=== PATIENT | male | born 1965 | race American Indian/Alaskan Native ===

== ENCOUNTER 2025-03-02 10:46 | Inpatient (IN) | payer MEDICAID, SELFPAY ==
[2025-03-02] VITALS (23 sets, daily range): BP systolic 132–167; BP diastolic 84–111; PULSE 98–132; RESP 24–88; TEMP 36.8–39.2; O2SAT 88–98; BMI 25.9
--- NOTE | 2025-03-02 11:17 | PD.EDSOB ---
ED SOB =RME/HPI General Chief Complaint: Shortness of Breath/Dyspnea Stated Complaint: SOB Time Seen by Provider: 03/02/25 11:04 Arrival date/time: 03/02/25 10:46 RME / HPI RME / HPI Narrative: 59 year old male with history of HIV presents to the ED BIBA from home for shortness of breath and difficulty breathing today. Per medics report, on scene patient noted to be in respiratory distress and saturating 88% on room air. Reported on their lung auscultation there were rhonchi throughout all lung kruse. Was given 3 Albuterol breathing treatments en route with some improvement. On arrival to ED patient was saturating 98% on 3L nasal cannula. The patient additionally reports a productive cough with yellow blood tinged sputum beginning 2 days ago. No recent travels or known sick contacts. Related Data Allergies Allergy/AdvReac Type Severity Reaction Status Date / Time No Known Allergies Allergy Verified 03/02/25 11:21 Review of Systems Review of Systems Narrative Review of Systems: Constitutional: DENIES; Fevers Eyes: DENIES; Loss of vision Head/Ear/Nose: DENIES; Loss of hearing Throat: DENIES; Dysphagia Cardiovascular: DENIES; Chest pain, dyspnea or syncope Respiratory: SEE HPI Gastrointestinal: DENIES; Rectal bleeding or melena. Genitourinary: DENIES; Dysuria (painful or difficult urination) Musculoskeletal: DENIES; Arthralgia (pain in a joint),; Skin: DENIES; Rash Neurological: DENIES; Loss of function or movement Psychiatric: DENIES; recent major life stressor, emotional problem, illicit drug use or abuse Endocrinology: DENIES; Weight change Hematologic/Lymphatic: DENIES; Abnormal bruising Allergic/Immunologic: DENIES; Urticaria (hives) Past Medical History Past Medical History CARDIAC: Negative Congestive Heart Failure RESPIRATORY: Negative Chronic Obstructive Pulmonary Disease (COPD) GENITOURINARY: Negative Renal Disease MUSCULOSKELETAL: Positive Musculoskeletal Disorders (hands) ENDOCRINE: Negative Diabetes Mellitus Type 1 or Diabetes Mellitus Type 2 HEMATOLOGIC: Positive Blood Disorders (hiv/aids) Social History SMOKING STATUS: Former smoker ED Exam Narrative Physical exam: Physical Exam: General: The vital signs were reviewed. Patient feels warm he is tachycardic his blood pressure is adequate appears ill the patient is appears ill and is breathing tachypneic without stridor. Head & Scalp: Normocephalic, atraumatic. Face: Appears normal and is without lesions, deformity. Ears: Left external pinna appears normal. Right external pinna appears normal. Eyes: The sclera is anicteric. No obvious photophobia. The Left and Right Orbit/Lid/Conjunctiva appears normal without swelling, discoloration or injection. Nose: The nose is without deformity, discharge or tenderness; Throat: Appears normal. The mucous membranes are pink and moist without exudates, redness or mass seen. The tongue appears normal. Neck: The neck is supple and no apparent mass or adenopathy. Chest: The chest wall is normal in size and symmetry and has no chest wall tenderness or crepitus. The patient displays increased ventilatory effort with decreased breath sounds in the right lower lung field. Some scant wheezes are heard without any obvious rales. . Cardiovascular: Tachycardia at 140 sinus on the monitor with regular rate ; No murmurs, rubs, or gallops; Gastrointestinal: The abdomen appears normal. No obvious hernias or mass. The abdomen is soft and benign, non-distended, with no pain, no guarding and no rebound tenderness. Bowel sounds are present and normal sounding. No CVA tenderness. Genitourinary: Back/Spine: Normal inspection Extremities/Musculoskeletal/lymphatic: The bilateral upper and lower extremities are warm. There is no evidence of arterial insufficiency. There is no evidence of venous insufficiency/edema. The patient spontaneously moves bilateral upper and lower extremities with no pain and no limitation of movement. There is no apparent, injury or trauma. Skin: The skin is warm, dry and intact. No rashes. No petechia. No purpura. No abnormal bruising. The color is appropriate with no cyanosis. Mental status/Psychiatric: Mental status is appropriate for age. The patient has no apparent delusions, visual hallucinations, no apparent audible hallucinations. The patient has no apparent suicidal thoughts/ideation and no apparent homicidal thoughts/ideation. Neurological: The patient is awake, alert, interactive, cordial, cooperative and is oriented to name and situation. The patient follows commands and answers historical question with no impairment. There is no visual disturbance apparent. The pupils are equal and reactive bilaterally with normal eye movements and no diplopia The bilateral upper and lower extremities have normal strength, normal range of motion and normal functioning. The gait, station and balance were not tested due to acuity Course Quality Measures Current suspected stage: sepsis Possible source: pulmonary Blood cultures ordered: completed in ED Antibiotic ordered: Yes Pertinent labs: 03/02/25 03/02/25 03/02/25 11:30 11:51 14:43 Lactic Acid 2.4 H mMol/L 1.1 mMol/L (0.4-2.0) (0.4-2.0) Procalcitonin 2.39 H ng/ml (0.0-0.49) sepsis Orders Category Date Time Status Admit to Inpatient Status Routine Admission 03/02/25 14:54 Active Patient Condition Routine Admission 03/02/25 14:53 Ordered Bedrest NOW Care 03/02/25 14:54 Active Bedside Blood Glucose NOW Care 03/02/25 11:18 Completed Bedside COVID-19 Antigen Test NOW Care 03/02/25 11:39 Active Bedside Influenza A&B Antigen Test NOW Care 03/02/25 11:41 Completed EKG (ED ONLY) *Do not use* NOW Care 03/02/25 11:18 Completed Intake and Output QSHIFT Care 03/02/25 15:00 Ordered NPO NOW Care 03/02/25 14:54 Active Notify provider NEEDED Care 03/02/25 14:53 Active Diet NPO (NOW) Diet 03/02/25 14:54 Active EKG (ED Only) Stat Exams 03/02/25 11:18 Draft XR chest 1V portable Stat Exams 03/02/25 11:18 Completed Alcohol, Blood Medical Stat Lab 03/02/25 11:51 Completed Ammonia Stat Lab 03/02/25 11:51 Completed B-Type Natriuretic Peptide Stat Lab 03/02/25 11:51 Completed Blood Culture (Lab) Stat Lab 03/02/25 11:33 Received CBC AM DRAW Lab 03/03/25 05:00 Ordered CBC AM DRAW Lab 03/04/25 05:00 Ordered CBC AM DRAW Lab 03/05/25 05:00 Ordered CBC Stat Lab 03/02/25 11:30 Completed Comprehensive Metabolic Panel AM DRAW Lab 03/03/25 05:00 Ordered Comprehensive Metabolic Panel AM DRAW Lab 03/04/25 05:00 Ordered Comprehensive Metabolic Panel AM DRAW Lab 03/05/25 05:00 Ordered Comprehensive Metabolic Panel Stat Lab 03/02/25 11:51 Completed Drug Screen,Urine Stat Lab 03/02/25 11:30 Completed Lactate (Lactic Acid) Stat Lab 03/02/25 11:30 Completed Lactic Acid, 3 HR Stat Lab 03/02/25 14:43 Completed Lipid Panel AM DRAW Lab 03/03/25 05:00 Ordered Magnesium AM DRAW Lab 03/03/25 05:00 Ordered Magnesium AM DRAW Lab 03/04/25 05:00 Ordered Magnesium AM DRAW Lab 03/05/25 05:00 Ordered Misc Send Out* Stat Lab 03/02/25 15:42 Received Procalcitonin Stat Lab 03/02/25 11:51 Completed Prothrombin Time with INR Stat Lab 03/02/25 11:51 Completed Troponin I Stat Lab 03/02/25 11:51 Completed Type and Screen Stat Lab 03/02/25 11:38 Completed Urinalysis Stat Lab 03/02/25 11:30 Completed Urinalysis, C/S if Indicated Stat Lab 03/02/25 11:30 Completed Venous Blood Gas Stat Lab 03/02/25 11:30 Completed ALBUTEROL RT 0.5ml [Proventil Rt 0.5ml] Med 03/02/25 14:11 Discontinued 10 mg INH X1 ONE Acetaminophen Tab [Tylenol Tab] Med 03/02/25 14:53 Active 650 mg PO Q6H PRN Heparin Inj Med 03/02/25 22:00 Active 5,000 unit SC Q8HR MethylPREDNISolone.* [SoluMEDROL Inj] Med 03/02/25 14:11 Discontinued 125 mg IVP X1 ONE Ondansetron Inj [Zofran Inj] Med 03/02/25 14:53 Active 4 mg IV Q6H PRN Pantoprazole Inj [Protonix Inj] Med 03/02/25 15:00 Active 40 mg IVP QDAY Piper/Tazo 3.375 gm Premix [Zosyn] Med 03/02/25 11:18 Discontinued 3.375 gm in 50 ml IV X1 Sodium Chloride 0.9% 1000 ml [Ns] 1,000 ml Med 03/02/25 12:04 Discontinued IV 999 mls/hr Sodium Chloride 0.9% 1000 ml [Ns] 2,000 ml Med 03/02/25 11:18 Active IV 150 mls/hr Sodium Chloride Rt [place] 0.9% [NS Rt [place] 0.9%] Med 03/02/25 14:11 Active 3 ml INH PRN PRN Vancomycin/Ns 1 gm Ivpb 200 ml Med 03/02/25 11:18 Discontinued IV X1 Code Status Routine Oth 03/02/25 14:53 Ordered Oxygen Delivery PRN RT 03/02/25 14:53 Active Vital Signs Vital signs: Vital Signs Temperature 98.2 F 03/02/25 10:58 Pulse Rate 128 H 03/02/25 10:58 Respiratory Rate 32 H 03/02/25 10:58 Blood Pressure 147/102 H 03/02/25 10:58 Pulse Oximetry (%) 88 L 03/02/25 10:58 Oxygen Delivery Method Room Air 03/02/25 10:58 Shortness of Breath / Dyspnea MDM Narrative MDM Narrative:: Patient is a 59-year-old with known HIV disease comes in breathing a little fast short of breath tachycardic and found to have a rectal temperature of 102. Because of the fever and tachycardia we gave him a liter of fluid because he looked ill he is immunocompromise but given Vanco and Zosyn upfront after the fluid bolus he looks basically same he still breathing little fast his heart rates in the 120s. Chest x-ray read by myself which shows a right lower lobe infiltrates consistent with a right lower lobe pneumonia. Urine drug screen came back negative alcohol level was negative Urinalysis came back negative. Procalcitonin is elevated 2.39 ammonia came back negative troponin was negative BNP was negative. AST ALT within normal limits folate was normal. Lactic acid came back at 2.4 slightly elevated. Glucose 135 BUN 16 creatinine 1.0 sodium 127 little low potassium 4.3 chloride 93 venous blood gas pH is 7.46 pCO2 of 41 PT/INR is 11.2 and 1.0 white count was 13.8 with hemoglobin of 15.8 hematocrit 43.3 platelet count 130. Patient was treated for possible sepsis early with antibiotics and being immunocompromise. Clinically he is quite ill but probably not sick enough to be in the ICU at this time. I contacted our critical care doc and they state they cannot take a look at this patient and I called hospitalist as I think they will be admitting to the floor with telemetry at this time. Obviously he is at high risk for progressing getting worse. Noted reevaluate this patient multiple times Hospitalist team came down evaluate this patient then discussed this with their attending and they decided to keep him in the ICU is high risk of declining due to his immunocompromise state. And the fact he has a significant pneumonia. Noted a second blood gas was obtained the pH is still well-maintained at 739 pCO2 of 51 with minimal retention. Patient data External records reviewed:: [facility] previous records (I reviewed ED visit on 06/10/2023) and EMS form Clinical information provided by:: patient and EMS Social determinants that could affect healthcare access:: none Patient has the following chronic illnesses:: HIV How is presenting disease/condition affected by chronic disease/condition?: exacerbated by Evaluation data The following diagnostics were reviewed and interpreted by me:: lab results, radiology exam(s) and EKG tracing(s) (EKG @ 12:26 PM. Sinus tachycardia, rate 116, no STEMI. ) Lab and/or radiology exams considered but not ordered:: None Interpretation Summary: Ordering Physician: Mike Manning MD Date of Service: 03/02/25 Procedure(s): XR chest 1V portable Accession Number(s): [id number] cc: Mike Manning MD; Sourav Laguna MD~ Examination: AP chest single view Technique one AP upright portable chest single view Exam date and time: March 02, 2025 1203 hours INDICATIONS: Chest pain beginning 2 days ago. FINDINGS: Bilateral pneumonia, extensive right lung Mild prominence left ventricle Prominent osteopenia IMPRESSION: Bilateral pneumonia, extensive right lung Dictated By: Sourav Laguna MD Signed By: <Electronically signed by Sourav Laguna MD in OV> 03/02/25 1211 Medications / Prescriptions Medications or Prescriptions considered but not ordered:: None Medication administrations:: Medication Administration History Acetaminophen (Acetaminophen 325 Mg Tablet) 650 mg PO Q6H PRN PRN Reason: pain and Fever >100.4 Stop: 04/01/25 14:52 Last Admin: 03/02/25 16:38 Dose: 650 mg Documented By: CHIKIS Heparin Sodium (Porcine) (Heparin Sod Inj 5000 Unit/Ml Vial) 5,000 unit SC Q8HR ELEANOR Stop: 03/16/25 21:59 Sodium Chloride (Ns) 2,000 mls @ 150 mls/hr IV .[id number] ONE Stop: 03/03/25 00:37 Last Infusion: 03/02/25 16:22 Dose: 999 mls/hr Documented By: Admin: 03/02/25 11:58 Dose: 150 mls/hr Documented By: CHIKIS Azithromycin 500 mg/ Sodium (Chloride) 250 mls @ 250 mls/hr IV Q24H ELEANOR Stop: 03/09/25 15:59 Last Admin: 03/02/25 16:49 Dose: 250 mls/hr Documented By: CHIIKS Ceftriaxone Sodium/Dextrose (Rocephin/D5w 1gm Iv Premix) 1,000 mg in 50 mls @ 100 mls/hr IV Q24H ELEANOR Stop: 03/09/25 14:59 Last Admin: 03/02/25 16:30 Dose: 100 mls/hr Documented By: CHIKIS Labetalol HCl (Labetalol Inj 5 Mg/Ml Vial 20 Ml) 5 mg IVP Q6HR PRN PRN Reason: SBP >170 and hold if HR<70 Stop: 04/01/25 15:41 Ondansetron HCl (Ondansetron Inj 2 Mg/Ml Inj 2 Ml) 4 mg IV Q6H PRN; Protocol PRN Reason: NAUSEA OR VOMITING Stop: 04/01/25 14:52 Oseltamivir Phosphate (Oseltamivir 6 Mg/Ml) 75 mg 1 mg/kg (75 mg) PO BID ELEANOR Stop: 03/09/25 20:59 Pantoprazole Sodium (Pantoprazole Inj 40 Mg Vial) 40 mg IVP QDAY ELEANOR Stop: 04/01/25 14:59 Last Admin: 03/02/25 16:31 Dose: 40 mg Documented By: CHIKIS Sodium Chloride (Sodium Chloride Rt [place] 0.9% 3 Ml Nebu) 3 ml INH PRN PRN PRN Reason: SOLN Stop: 04/01/25 14:10 Last Admin: 03/02/25 14:32 Dose: 3 ml Documented By: DOMINGUEZ Discontinued Medications Albuterol (Albuterol Rt 2.5 Mg/0.5 Ml Nebu) 10 mg INH X1 ONE Stop: 03/02/25 14:12 Last Admin: 03/02/25 14:31 Dose: 10 mg Documented By: DOMINGUEZ Vancomycin/Sodium Chloride (Vancomycin/Ns 1 Gm Ivpb) 200 mls @ 120 mls/hr IV X1 ONE Stop: 03/02/25 12:57 Last Infusion: 03/02/25 16:01 Dose: Infused Documented By: Admin: 03/02/25 12:40 Dose: 120 mls/hr Documented By: CHIKIS Piperacillin/Tazobactam/Dextrose (Zosyn) 3.375 gm in 50 mls @ 100 mls/hr IV X1 ONE Stop: 03/02/25 11:47 Last Infusion: 03/02/25 13:08 Dose: Infused Documented By: Admin: 03/02/25 11:58 Dose: 100 mls/hr Documented By: CHIKIS Sodium Chloride (Ns) 1,000 mls @ 999 mls/hr IV .Q1H1M ONE Stop: 03/02/25 13:04 Last Infusion: 03/02/25 16:02 Dose: Infused Documented By: Admin: 03/02/25 12:08 Dose: 999 mls/hr Documented By: CHIKIS Lactated Ringer's (Lactated Ringers) 1,000 mls @ 999 mls/hr IV .Q1H1M ONE Stop: 03/02/25 16:09 Last Admin: 03/02/25 16:24 Dose: Not Given Documented By: CHIKIS Non-Admin Reason: Cancelled by Provider Methylprednisolone Sodium Succinate (Methylprednisolone Sod Succ 62.5 Mg/Ml 2ml Vial) 125 mg IVP X1 ONE Stop: 03/02/25 14:12 Last Admin: 03/02/25 15:03 Dose: 125 mg Documented By: MARIAH See above Consultations Consultation(s) initiated? (list below): Yes Consultation #1 (Physician, Specialty, Details): I spoke with [facility] extension specialist Dr. Terry. Discussed patients PMHx, HPI, ED course, exam findings, labs, and radiology results. He agrees to consult. Patient will be admitted to hospitalist team. Time: 14:02 Consultation #2 (Physician, Specialty, Details): I spoke with resident Dr. Renteria regarding admission. Discussed patients PMHx, HPI, ED course, exam findings, labs, and radiology results. Will come evaluate the patient in the ED. Time: 14:04 Consultation #3 (Physician, Specialty, Details): ICU resident report they will be admitting the patient to the unit. Time: 14:50 Diagnosis Shortness of Breath Differential Diagnosis: acute exacerbation of chronic obstructive airways disease, congestive heart failure and community acquired pneumonia Most likely diagnosis given after review of the tests above:: Pneumonia Immunocompromised HIV disease Hypoxemia SIRS Influenza A Admission Indicated Admission indicated?: indicated Admission Request Was there a request for admission?: Yes Admission Attestation Admission request attestation: Discussed case with [] from Hospitalist service regarding admission. Discussed patients ED course, exam findings, labs, and radiology results. The Hospitalist [agrees,declines] to accept the patient for admission. Disposition Plan Disposition Plan: Admit Critical Care Time Critical Care Time Critical Care Time: Yes Total Critical Care Time (min.): 45 Attestation: The high probability of sudden, clinically significant deterioration in the patient's condition required the highest level of my preparedness to intervene urgently. The services I provided to this patient were to treat and/or prevent clinically significant deterioration. Services included the following: chart data review, reviewing nursing notes and/or old charts, documentation time, search consultant collaboration regarding findings and treatment options, medication orders and management, direct patient care, vital sign assessments and ordering, interpreting and reviewing diagnostic studies and lab tests. Aggregate critical care time includes only time during which I was engaged in work directly related to the patient's care, as described above, whether at bedside or elsewhere in the Emergency Department. It did not include time spent performing other reported procedures or the services of residents, students, nurses or physician assistants. Discharge Plan Plan Patient Disposition: Admit Acute Care w/in Hospital Disposition Comment: Hospitalist admit ICU to consult Problem List Clinical Impression: Pneumonia, Immunocompromised, HIV disease, Hypoxemia, SIRS (systemic inflammatory response syndrome), Influenza A
--- NOTE | 2025-03-02 11:18 | EKG_ITS ---
[facility] Test Date: 2025-03-02 Pat Name: TORIN DAVID Department: Room: - Gender: Male Credit Charge Authorizer: : 1965 Requested By: Mike Manning Order Number: [id number] Reading MD: Mike Manning Measurements Intervals [place] Rate: 116 P: 49 IN: 194 QRS: -12 QRSD: 108 T: 28 QT: 314 QTc: 437 Interpretive Statements SINUS TACHYCARDIA POSSIBLE RIGHT ATRIAL ENLARGEMENT [0.25mV P-WAVE] LOW QRS VOLTAGE IN PRECORDIAL LEADS [QRS DEFLECTION < 1.0 mV IN CHEST LEADS] ABNORMAL RHYTHM ECG Compared to ECG 06/10/2023 14:33:35 Low QRS voltage now present Myocardial infarct finding no longer present /store/S0/[id number].pdf
[2025-03-02 11:34] LABS: Lactate (Lactic Acid) 2.4 mMol/L (0.4-2.0)
[2025-03-02 11:36] LABS: Base Excess, Venous 5 (-3-3); O2 Saturation, Venous 94 % (96-97); PCO2, Venous 41 mmHg (36-56); PO2, Venous 70 mmHg (15-58); pH, Venous 7.46 (7.33-7.66)
[2025-03-02 11:38] LABS: Basophils # (Auto) 0.1 Thou/mm3 (0.0-0.2); Basophils % (Auto) 1 % (0-2.5); Collection Type, Urine Clean Catch; Eosinophils # (Auto) 0.1 Thou/mm3 (0.0-0.5); Eosinophils % (Auto) 1 % (0-10); Hematocrit 43.3 % (41.0-53.0); Hemoglobin 15.8 g/dL (13.5-16.0); Immature Granulocytes % (Auto) 1 % (0-0); Lymphocytes # (Auto) 0.8 Thou/mm3 (1.0-4.8); Lymphocytes % (Auto) 6 % (10-50); Mean Corpuscular HGB Conc 36.5 g/dl (31.0-37.0); Mean Corpuscular Hemoglobin 32.8 pg (25.0-35.0); Mean Corpuscular Volume 90 fL (80-100); Monocytes # (Auto) 0.9 Thou/mm3 (0.0-0.8); Monocytes % (Auto) 7 % (0-12); Neutrophils # (Auto) 11.8 Thou/mm3 (1.8-7.7); Neutrophils % (Auto) 86 % (37-80); Nucleated Red Blood Cell % 0 /100 WBC (0); Platelet Count 130 Thou/mm3 (140-440); RDW Standard Deviation 41.9 fL (35.1-43.9); Red Blood Count 4.82 Miln/mm3 (4.50-5.90); White Blood Count 13.8 Thou/mm3 (3.8-10.6)
[2025-03-02 11:47] LABS: Bacteria,Urine Rare; Bilirubin,Urine Negative (Negative); Blood,Urine 1+ (Negative); Clarity,Urine Clear (Clear/Hazy); Color,Urine Yellow (Lt Yel-Yel); Culture Indicated,Urine Not Indicated; Glucose, Urine Trace (Negative); Ketones,Urine Negative (Negative); Leukocyte Esterase,Urine Negative (Negative); Nitrite,Urine Negative (Negative); Protein,Urine 2+ (Neg - Trace); RBC,Urine 1 /hpf (0-3); Specific Gravity,Urine 1.026 (1.001-1.035); Squamous Epithelial Cell,Urine 1 /hpf (0-5); Urobilinogen,Urine Negative mg/dL (0.0-1.0); WBC,Urine 3 /hpf (0-5)
[2025-03-02 11:54] LABS: Amphetamine/Methamp Scrn,U Negative (Negative); Barbiturate Screen,Urine Negative (Negative); Benzodiazepines Screen,Urine Negative (Negative); Benzoylecgonine Screen, Ur Negative (Negative); Fentanyl Screen,Urine Negative (Negative); Opiate Screen,Urine Negative (Negative); THC Screen,Urine Negative (Negative)
[2025-03-02] MEDS: SODIUM CHLORIDE 0.9% 1000 ML 2,000 ML 150 ML IV (11:58)
[2025-03-02] MEDS: PIPER/TAZO 3.375 GM PREMIX 3.375 GM/50 ML BAG IV (11:58)
[2025-03-02] MEDS: SODIUM CHLORIDE 0.9% 1000 ML 1,000 ML 999 ML IV (12:08)
[2025-03-02 12:15] LABS: Prothrombin Time 11.2 Seconds (9.0-12.2)
[2025-03-02 12:21] LABS: B-Type Natriuretic Peptide < 20 pg/mL (0-100)
[2025-03-02 12:24] LABS: Ammonia < 10 uMol/L (11-32)
[2025-03-02 12:29] LABS: Alanine Aminotransferase 13 U/L (10-49); Albumin/Globulin Ratio 1.1 (1.2-2.2); Alcohol, Blood Medical < 10.0 mg/dL (0-10.0); Alkaline Phosphatase 81 U/L (46-116); Anion Gap 6 (7-16); Aspartate Amino Transferase 36 U/L (0-34); BUN/Creatinine Ratio 16 Ratio (12-20); Bilirubin,Total 1.1 mg/dL (0.3-1.2); Blood Urea Nitrogen 16 mg/dL (9-23); Calcium 8.7 mg/dL (8.3-10.6); Calcium (Corrected) 8.7 mg/dL (8.5-10.1); Carbon Dioxide 27.6 mMol/L (20.0-31.0); Chloride 93 mMol/L (98-107); Estimated Creatinine Clearance 73.4 mL/min (>60); Globulin 3.7 gm/dL (2.3-3.5); Glucose 135 mg/dL (74-106); Osmolality,Calculated 258 (275-295); Potassium 4.3 mMol/L (3.4-5.1); Procalcitonin 2.39 ng/ml (0.0-0.49); Sodium 127 mMol/L (136-145); Total Protein 7.7 gm/dL (5.7-8.2); Troponin I < 0.020 ng/mL (0.0-0.045); eGFR > 60 See Note
[2025-03-02] MEDS: VANCOMYCIN/NS 1 GM IVPB 200 ML IV (12:40)
[2025-03-02] MEDS: ALBUTEROL RT 2.5 MG/0.5 ML NEBU 10 MG INH (14:31)
[2025-03-02 14:32] LABS: Reflex Lactate? Y
[2025-03-02] MEDS: SODIUM CHLORIDE RT SOL 0.9% 3 ML NEBU INH (14:32)
[2025-03-02 15:01] LABS: Lactic Acid, 3 HR 1.1 mMol/L (0.4-2.0)
[2025-03-02] MEDS: MethylPREDNISolone SOD SUCC 62.5 MG/ML 2ML VIAL 125 MG IVP (15:03)
--- NOTE | 2025-03-02 15:06 | ESHP_ITS ---
<Statement entered by Sumanth Terry MD - 03/03/25 11:32> I reviewed the resident?s note and agree with findings and plan as documented in the resident?s note. Cover for community-acquired pneumonia. Determine patient's past compliance with antivirals. Currently he is a poor historian. Check CD4. Will consider adding broader coverage including Bactrim. Tamiflu for influenza A. Given work of breathing and abdominal accessory use of muscles, will admit to the ICU for continued observation, treatment High flow nasal cannula will will be started. Infectious disease consult obtained Documentation for date of: 03/02/25 HPI History of Present Illness Chief complaint: SOB History of present illness: 59-year-old male with past medical history of HIV (diagnosed in 1999) was admitted to the ICU on 03/02/2025 after coming to the ED with complaints of shortness of breath for the past few days. On assessment patient was a very poor historian and was having difficulty breathing and could not complete full sentences. Patient stated that around 10 days ago he started feeling sick, but that he got better and all of a sudden he got worse again. He mentioned that he had fevers, productive cough with some specks of blood, some diarrhea, burning sensation urination, and shortness of breath. Patient mentioned that he moved from [place] a few months ago and that he is new to the area. He mentioned that he had a viral load done a few months ago, but given the patient very poor historian he did not specify how long ago. He stated that he he has seen a physician recently, but not following any HIV specialist. Patient stated that sometimes he misses his doses of Biktarvy. He also mentioned that he stopped smoking 1 month ago and that he used to smoke around 1 pack/month. 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 ED course: Initially came in hypertensive, tachycardic, tachypneic, hypoxic, and febrile. Initial labs were evaluated for positive influenza A bedside, leukocytosis (13.8), mild hyponatremia (127), lactic acidosis (2.4), elevated procalcitonin (2.39), and UA positive for rare bacteria. Initial imaging included chest x-ray which showed right pneumonia and EKG which showed sinus tachycardia. In the ED patient received 1 dose of methylprednisolone 125 mg x 1, vancomycin, Zosyn, and 1 L of normal saline. Patient was admitted to the ICU given increased work of breathing and anticipation for respiratory failure due to exhaustion possibly requiring intubation. PMH: AIDS (diagnosed in 2008 on Biktarvy) Social Hx: Past smoker (1 pack/month quit 1 month ago), past meth and alcohol use (quit 1 year ago) Allergies: NKDA Meds: Biktarvy Review of Systems Review of Systems Narrative Review of Systems: Constitutional: Denies sweats, Denies weight loss/gain, Admits fever, Admits chills, admits weight loss. HEENT: Denies hearing loss, Denies ear pain, Denies postnasal drip, Denies double vision, Denies blurry vision. Respiratory: Admits shortness of breath, Admits cough, Denies wheezing. Cardiovascular: Denies chest pain, Denies palpitations, Denies sudden loss of consciousness. GI: Denies blood in stool, Denies constipation, Denies abdominal pain, Denies difficulty swallowing, Denies nausea or vomit. : Denies urinary incontinence, Admits pain while urinating, Denies increased urinary frequency. MSK: Denies joint pain, Denies joint swelling, Denies numbness. Skin: Denies rash, Denies itching, Denies easy bruising. Neuro: Denies headaches, Denies dizziness, Denies seizures. Past Medical History Past Medical History Comments PMH COMMENT: PMH: AIDS (diagnosed in 2008 on Biktarvy) Social Hx: Past smoker (1 pack/month quit 1 month ago), past meth and alcohol use (quit 1 year ago) Allergies: NKDA Meds: Biktarvy Exam Vital Signs Temp Pulse Resp BP Pulse Ox O2 Del Method O2 Flow Rate 102.6 F H 115 H 38 H 132/98 H 94 L Nasal Cannula 6 03/02/25 11:59 03/02/25 14:35 03/02/25 14:35 03/02/25 11:59 03/02/25 14:35 03/02/25 11:59 03/02/25 14:35 Narrative Exam General: A/O x3, respiratory distress, able to follow commands Eyes: PERRL, EOMI. Anicteric, vision grossly intact. Ears: No visible ear discharge, Hearing grossly intact. Nose: No visible nasal discharge. Mouth/Throat: Moist mucous membranes, no redness, no lesions. Neck: Neck supple, non-tender, no cervical lymphadenopathy. Lungs: Bronchial breath sounds on the right with belly breathing. Cardio: Normal S1/S2, regular rhythm, no murmurs, no JVD Abdomen: Soft, non-tender, no palpable masses, peristalsis present, no guarding or rebound. Extremities: Symmetrical, no significant deformities, no peripheral edema , non-tender, peripheral pulses presents. Skin: No rashes, no lesions, warm to touch. Neuro: No focal neurological deficits. sensory and motor intact Results: Labs 03/02/25 11:30 03/02/25 11:51 Labs: Short CBC 03/02/25 Range/Units 11:30 WBC 13.8 H (3.8-10.6) Thou/mm3 Hgb 15.8 (13.5-16.0) g/dL Hct 43.3 (41.0-53.0) % Plt Count 130 L (140-440) Thou/mm3 BMP 03/02/25 11:51 Sodium 127 L Potassium 4.3 Chloride 93 L Carbon Dioxide 27.6 BUN 16 Creatinine 1.0 Glucose 135 H Calcium 8.7 Cardiac Enzymes 03/02/25 Range/Units 11:51 Troponin I < 0.020 (0.0-0.045) ng/mL Liver Function 03/02/25 Range/Units 11:51 Total Bilirubin 1.1 (0.3-1.2) mg/dL AST 36 H (0-34) U/L ALT 13 (10-49) U/L Alkaline Phosphatase 81 (46-116) U/L Albumin 4.0 (3.4-4.8) gm/dL Urine 03/02/25 Range/Units 11:30 Urine Color Yellow (Lt Yel-Yel) Urine Clarity Clear (Clear/Hazy) Urine pH 6.0 (5.0-7.0) Ur Specific [place] 1.026 (1.001-1.035) Urine Protein 2+ A (Neg - Trace) Urine Glucose (UA) Trace (Negative) ABG Interpretation ABG results: 03/02/25 11:30 VBG pH 7.46 VBG pCO2 41 VBG pO2 70 H VBG Base Excess 5 H Quality Measures Quality Measures VTE prophylaxis Medications Home Medications and Allergies Allergies Allergy/AdvReac Type Severity Reaction Status Date / Time No Known Allergies Allergy Verified 03/02/25 11:21 Visit Medications Acetaminophen (Acetaminophen 325 Mg Tablet) 650 mg PO Q6H PRN PRN Reason: pain and Fever >100.4 Stop: 04/01/25 14:52 Heparin Sodium (Porcine) (Heparin Sod Inj 5000 Unit/Ml Vial) 5,000 unit SC Q8HR ELEANOR Stop: 03/16/25 21:59 Sodium Chloride (Ns) 2,000 mls @ 150 mls/hr IV .[id number] ONE Stop: 03/03/25 00:37 Last Admin: 03/02/25 11:58 Dose: 150 mls/hr Azithromycin 500 mg/ Sodium (Chloride) 250 mls @ 250 mls/hr IV QDAY ELEANOR Stop: 03/09/25 14:59 Ceftriaxone Sodium 1 gm/ (Sodium Chloride) 50 mls @ 100 mls/hr IV QDAY ELEANOR Stop: 03/09/25 14:59 Ondansetron HCl (Ondansetron Inj 2 Mg/Ml Inj 2 Ml) 4 mg IV Q6H PRN; Protocol PRN Reason: NAUSEA OR VOMITING Stop: 04/01/25 14:52 Oseltamivir Phosphate (Oseltamivir 6 Mg/Ml) 75 mg 1 mg/kg (75 mg) PO BID REPLACED BY [facility] Stop: 03/09/25 20:59 Pantoprazole Sodium (Pantoprazole Inj 40 Mg Vial) 40 mg IVP QDAY ELEANOR Stop: 04/01/25 14:59 Sodium Chloride (Sodium Chloride Rt [place] 0.9% 3 Ml Nebu) 3 ml INH PRN PRN PRN Reason: SOLN Stop: 04/01/25 14:10 Last Admin: 03/02/25 14:32 Dose: 3 ml Discontinued Medications Albuterol (Albuterol Rt 2.5 Mg/0.5 Ml Nebu) 10 mg INH X1 ONE Stop: 03/02/25 14:12 Last Admin: 03/02/25 14:31 Dose: 10 mg Vancomycin/Sodium Chloride (Vancomycin/Ns 1 Gm Ivpb) 200 mls @ 120 mls/hr IV X1 ONE Stop: 03/02/25 12:57 Last Admin: 03/02/25 12:40 Dose: 120 mls/hr Piperacillin/Tazobactam/Dextrose (Zosyn) 3.375 gm in 50 mls @ 100 mls/hr IV X1 ONE Stop: 03/02/25 11:47 Last Infusion: 03/02/25 13:08 Dose: Infused Sodium Chloride (Ns) 1,000 mls @ 999 mls/hr IV .[id number] ONE Stop: 03/02/25 13:04 Last Admin: 03/02/25 12:08 Dose: 999 mls/hr Methylprednisolone Sodium Succinate (Methylprednisolone Sod Succ 62.5 Mg/Ml 2ml Vial) 125 mg IVP X1 ONE Stop: 03/02/25 14:12 Last Admin: 03/02/25 15:03 Dose: 125 mg Assessment & Plan Plan 59-year-old male with past medical history of HIV (diagnosed in 1999) was admitted to the ICU on 03/02/2025 for acute hypoxic respiratory failure secondary to community-acquired pneumonia and sepsis. 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 This is most likely in the setting of sepsis Given patient's sepsis at this time we will defer from starting any antihypertensive medication for now Will place labetalol as needed for SBP above 170s and DBP above 100s Respiratory: #Acute hypoxic respiratory failure #Community-acquired pneumonia #Influenza positive #Tachypnea Patient has been feeling short of breath with cough for around 10 days Chest x-ray that shows right sided pneumonia Bedside influenza A was positive Patient came in and met SIRS criteria 4 out of 4 along with lactic acidosis Patient is having increased work of breathing with respiratory rate in the 30s and anticipate possible need for intubation due to his oxygen in the future. Procalcitonin 2.39 ABG ordered Ordered cocci, RSV, and 1 3 beta D glucan We will start azithromycin 500 mg IV daily, Rocephin 1 mg daily, and Tamiflu 75 mg twice daily (03/02/2025?) Renal: #Lactic acidosis Patient came in with lactic acid of 2.4 and went down to 1.1 Patient seems to be perfusing well Will continue to monitor #Hypoosmolar hyponatremia Patient's initial sodium was 127 Patient does seems hypovolemic We will get repeat CMP GI: #Diarrhea Patient has been complaining of some diarrhea recently, but has not noticed any blood Endo: No active disease Heme: #Leukocytosis Patient is WBC 13.8 today Patient does have right-sided pneumonia on chest x-ray Likely infective in the setting of sepsis Start patient on azithromycin, Rocephin, and Tamiflu ID: #Sepsis #Community-acquired pneumonia #Influenza A positive #Hx of HIV Patient has been feeling sick for around 10 days along with shortness of breath and cough. Patient was influenza positive at bedside Patient is on Biktarvy for HIV, but does state he missed some doses Procalcitonin 2.39 Patient got 1 L of IV fluids in the ER Ordered 1 L of IV fluids Did not start steroids given influenza positive Ordered CD4 count, HIV viral load, RSV, cocci, and 1-3 B D glucan Start azithromycin, Rocephin, and Tamiflu (03/02/2025?) ID specialist consulted, appreciate commendations Hospital Maintenance: Diet: N.p.o. DVT ppx: Heparin subcu GI ppx: protonix IV lines: PIV Rodriguez: None Code status: Full code Dispo: ICU for acute hypoxic respiratory failure secondary to community-acquired pneumonia and sepsis with anticipation for possible intubation due to exhaustion Case disclosed with Attending Dr. Mara Arredondo PGY1 Disclaimer: This note was dictated by speech recognition, therefore there may be minor errors in restaurant culinary manager due to voice.
[2025-03-02 15:37] LABS: Base Excess 4 (-3-3); HCO3 30 mEq/L (20-26); Inspired O2, VO2 Liters 8 L/min; O2 Saturation 96 % (91-98); PCO2 51 mmHg (32.0-48.0); PO2 90 mmHg (83-108); pH, Arterial 7.39 (7.35-7.45)
[2025-03-02 15:38] LABS: Allen Test Performed/OK; Puncture Site Right Radial
--- NOTE | 2025-03-02 16:00 | PD.IDPROG ---
Subjective Subjective Interval history: asked to see late, will see friday and get some labs in the interim. rx suggests pt has flu a. labs for that pending pjp less likely by imaging but hard to r/o. will get LDH as alternative Exam Vital Signs Temp Pulse Resp BP Pulse Ox O2 Del Method O2 Flow Rate 102.6 F H 126 H 43 H 162/96 H 92 L Nasal Cannula 4 03/02/25 11:59 03/02/25 15:50 03/02/25 15:50 03/02/25 15:50 03/02/25 15:50 03/02/25 11:59 03/02/25 14:35 Narrative Exam not seen. rocephin and azithro and rx for f/u ok for now azucena if he has flu ordered baseline hiv labs for am as precaution. ok to give him his prior hiv meds if he can take them Objective - Internal Medicine Labs 03/02/25 11:30 03/02/25 11:51 Labs: Laboratory Results - last 24 hr 03/02/25 03/02/25 03/02/25 11:30 11:38 11:51 WBC 13.8 H RBC 4.82 Hgb 15.8 Hct 43.3 MCV 90 MCH 32.8 MCHC 36.5 RDW Std Deviation 41.9 Plt Count 130 L Neut % (Auto) 86 H Lymph % (Auto) 6 L [place] % (Auto) 7 Eos % (Auto) 1 Baso % (Auto) 1 Neut # (Auto) 11.8 H Lymph # (Auto) 0.8 L [place] # (Auto) 0.9 H Eos # (Auto) 0.1 Baso # (Auto) 0.1 Immature Gran # (Auto) 0.10 H Absolute Nucleated RBC 0.00 Immature Gran % 1 H Nucleated RBC % 0 PT 11.2 INR 1.0 Puncture Site ABG pH ABG pCO2 ABG pO2 ABG HCO3 ABG O2 Saturation ABG Base Excess VBG pH 7.46 VBG pCO2 41 VBG pO2 70 H VBG O2 Sat (Arlette) 94 L VBG Base Excess 5 H Oxygen Liter Flow Sodium 127 L Potassium 4.3 Chloride 93 L Carbon Dioxide 27.6 Anion Gap 6 L BUN 16 Creatinine 1.0 Estim Creat Clear Calc 73.4 eGFR > 60 BUN/Creatinine Ratio 16 Glucose 135 H Calculated Osmolality 258 L Lactic Acid 2.4 H Calcium 8.7 Corrected Calcium 8.7 Total Bilirubin 1.1 AST 36 H ALT 13 Alkaline Phosphatase 81 Ammonia < 10 L Troponin I < 0.020 B-Natriuretic Peptide < 20 Total Protein 7.7 Albumin 4.0 Globulin 3.7 H Albumin/Globulin Ratio 1.1 L Procalcitonin 2.39 H Ur Collection Type Clean Catch Urine Color Yellow Urine Clarity Clear Urine pH 6.0 Ur Specific [place] 1.026 Urine Protein 2+ A Urine Glucose (UA) Trace Urine Ketones Negative Urine Blood 1+ A Urine Nitrite Negative Urine Bilirubin Negative Urine Urobilinogen (Auto) Negative Ur Leukocyte Esterase Negative Urine RBC 1 Urine WBC 3 Ur Squamous Epith Cells 1 Urine Bacteria Rare Ur Culture Indicated? Not Indicated Urine Opiates Screen Negative Urine Fentanyl Screen Negative Ur Barbiturates Screen Negative U Amphetamin/Meth Scrn Negative U Benzodiazepines Scrn Negative U Cocaine Metab Screen Negative U Marijuana (THC) Screen Negative Ethyl Alcohol < 10.0 Blood Type O Positive Antibody Screen NEGATIVE Blood Bank Wristband ID Yes 03/02/25 03/02/25 14:43 15:31 WBC RBC Hgb Hct MCV MCH MCHC RDW Std Deviation Plt Count Neut % (Auto) Lymph % (Auto) [place] % (Auto) Eos % (Auto) Baso % (Auto) Neut # (Auto) Lymph # (Auto) [place] # (Auto) Eos # (Auto) Baso # (Auto) Immature Gran # (Auto) Absolute Nucleated RBC Immature Gran % Nucleated RBC % PT INR Puncture Site Right Radial ABG pH 7.39 ABG pCO2 51 H ABG pO2 90 ABG HCO3 30 H ABG O2 Saturation 96 ABG Base Excess 4 H VBG pH VBG pCO2 VBG pO2 VBG O2 Sat ([place]lette) VBG Base Excess Oxygen Liter Flow 8 Sodium Potassium Chloride Carbon Dioxide Anion Gap BUN Creatinine Estim Creat Clear Calc eGFR BUN/Creatinine Ratio Glucose Calculated Osmolality Lactic Acid 1.1 Calcium Corrected Calcium Total Bilirubin AST ALT Alkaline Phosphatase Ammonia Troponin I B-Natriuretic Peptide Total Protein Albumin Globulin Albumin/Globulin Ratio Procalcitonin Ur Collection Type Urine Color Urine Clarity Urine pH Ur Specific [place] Urine Protein Urine Glucose (UA) Urine Ketones Urine Blood Urine Nitrite Urine Bilirubin Urine Urobilinogen (Auto) Ur Leukocyte Esterase Urine RBC Urine WBC Ur Squamous Epith Cells Urine Bacteria Ur Culture Indicated? Urine Opiates Screen Urine Fentanyl Screen Ur Barbiturates Screen U Amphetamin/Meth Scrn U Benzodiazepines Scrn U Cocaine Metab Screen U Marijuana (THC) Screen Ethyl Alcohol Blood Type Antibody Screen Blood Bank Wristband ID ABG Interpretation ABG results: 03/02/25 03/02/25 11:30 15:31 ABG pH 7.39 ABG pCO2 51 H ABG pO2 90 ABG HCO3 30 H ABG O2 Saturation 96 ABG Base Excess 4 H VBG pH 7.46 VBG pCO2 41 VBG pO2 70 H VBG Base Excess 5 H Assessment & Plan A&P Narrative hiv by report flu a by rx hypoxemia pneumonia, rll. will get baseline labs tomorrow and f/u friday current empiric rx ok for now Time Spent With Patient Time: Total time spent is greater than 50% in coordination of care (as documented) at patient's floor/unit and/or counseling patient:
[2025-03-02 16:12] LABS: Alanine Aminotransferase 11 U/L (10-49); Albumin, Serum 3.8 gm/dL (3.4-4.8); Albumin/Globulin Ratio 1.1 (1.2-2.2); Alkaline Phosphatase 76 U/L (46-116); Anion Gap 5 (7-16); Aspartate Amino Transferase 33 U/L (0-34); BUN/Creatinine Ratio 17 Ratio (12-20); Bilirubin,Total 1.2 mg/dL (0.3-1.2); Blood Urea Nitrogen 15 mg/dL (9-23); Calcium 8.3 mg/dL (8.3-10.6); Calcium (Corrected) 8.5 mg/dL (8.5-10.1); Carbon Dioxide 30.3 mMol/L (20.0-31.0); Chloride 96 mMol/L (98-107); Creatinine (Component) 0.9 mg/dL (0.6-1.3); Estimated Creatinine Clearance 81.6 mL/min (>60); Globulin 3.4 gm/dL (2.3-3.5); Glucose 132 mg/dL (74-106); Osmolality,Calculated 265 (275-295); Potassium 4.4 mMol/L (3.4-5.1); Sodium 131 mMol/L (136-145); Total Protein 7.2 gm/dL (5.7-8.2); eGFR > 60 See Note
[2025-03-02] MEDS: cefTRIAXone/D5w 1gm IV premix 1,000 MG/50 ML BAG IV (16:30)
[2025-03-02] MEDS: PANTOPRAZOLE INJ 40 MG VIAL IVP (16:31)
[2025-03-02] MEDS: ACETAMINOPHEN 325 MG TABLET 650 MG PO (16:38)
[2025-03-02] MEDS: AZITHROMYCIN INJ 500 MG in SODIUM CHLORIDE 0.9% 250 ML 250 ML 250 MG IV (16:49)
--- NOTE | 2025-03-02 17:44 | PC.CC ---
Patient is a 59 year old female who presents to the hospital for AHRF, Sepsis, PNA. MARYWKaren and SCALE EXPERT Student Noreen made dlis-be-ippn contact with patient. ASW introduced self, role, and reason for visit. Patient appeared alert and oriented to self, location, and situation. Patient provided consent for SCALE EXPERT to remain in the room during assessment. Patient was pleasant and engaged in initial assessment. Patient confirmed his demographics and reports to living with his mother. Patient reports his medical decision maker in the event he is unable to make his own medical decisions is his cousin, Molly Mascorro . Patient is able to ambulate independently and complete his own ADLs. Patient does not require DME. His primary care provider is Skyler Mejia and uses [facility] for prescription medications. Upon discharge the patient plans to return back home. guest services representative to follow up with any discharge needs.
[2025-03-02 18:31] LABS: Respiratory Syncytial Virus Ag Negative (Negative)
--- NOTE | 2025-03-02 18:37 | PC.NURSE ---
called rt to place pt on high flow per md.
[2025-03-02] MEDS: HEPARIN SOD INJ 5000 UNIT/ML VIAL SC (21:42)
[2025-03-02] MEDS: OSELTAMIVIR 75 MG CAPSULE PO (21:42)
[2025-03-03] VITALS (79 sets, daily range): BP systolic 134–163; BP diastolic 86–119; PULSE 90–111; RESP 18–41; TEMP 36–36.5; O2SAT 88–98; BMI 25.9
[2025-03-03] MEDS: LABETALOL INJ 5 MG/ML VIAL 20 ML IVP ×2 (03:25→04:15)
[2025-03-03 05:27] LABS: Misc Send Out* See Sep Rpt; Quantiferon-TB* See Sep Rpt
[2025-03-03] MEDS: HEPARIN SOD INJ 5000 UNIT/ML VIAL SC ×3 (05:32→21:43)
[2025-03-03 05:34] LABS: Basophils % (Auto) 0 % (0-2.5); Eosinophils % (Auto) 0 % (0-10); Hematocrit 41.5 % (41.0-53.0); Hemoglobin 14.3 g/dL (13.5-16.0); Immature Granulocytes % (Auto) 0 % (0-0); Immature Granulocytes Auto 0.04 Thou/mm3 (0.00-0.00); Lymphocytes # (Auto) 0.4 Thou/mm3 (1.0-4.8); Lymphocytes % (Auto) 4 % (10-50); Mean Corpuscular HGB Conc 34.5 g/dl (31.0-37.0); Mean Corpuscular Hemoglobin 32.4 pg (25.0-35.0); Mean Corpuscular Volume 94 fL (80-100); Monocytes # (Auto) 0.5 Thou/mm3 (0.0-0.8); Monocytes % (Auto) 5 % (0-12); Neutrophils # (Auto) 8.7 Thou/mm3 (1.8-7.7); Neutrophils % (Auto) 90 % (37-80); Nucleated Red Blood Cell % 0 /100 WBC (0); Platelet Count 139 Thou/mm3 (140-440); RDW Standard Deviation 44.7 fL (35.1-43.9); Red Blood Count 4.41 Miln/mm3 (4.50-5.90); White Blood Count 9.7 Thou/mm3 (3.8-10.6)
[2025-03-03 06:32] LABS: Alanine Aminotransferase 14 U/L (10-49); Albumin, Serum 3.4 gm/dL (3.4-4.8); Albumin/Globulin Ratio 1.1 (1.2-2.2); Alkaline Phosphatase 73 U/L (46-116); Anion Gap 8 (7-16); Aspartate Amino Transferase 30 U/L (0-34); BUN/Creatinine Ratio 25 Ratio (12-20); Bilirubin,Total 0.8 mg/dL (0.3-1.2); Blood Urea Nitrogen 15 mg/dL (9-23); Calcium 8.4 mg/dL (8.3-10.6); Calcium (Corrected) 8.9 mg/dL (8.5-10.1); Carbon Dioxide 28.1 mMol/L (20.0-31.0); Cardiac Risk Estimate 4.2 RATIO (4.0-6.7); Chloride 101 mMol/L (98-107); Cholesterol 113 mg/dL (132-200); Creatinine (Component) 0.6 mg/dL (0.6-1.3); Estimated Creatinine Clearance 122.4 mL/min (>60); Glucose 128 mg/dL (74-106); HDL Cholesterol 27 mg/dL (40-60); LDH (Lactate Dehydrogenase) 311 U/L (120-246); LDL Cholesterol,Calculated 64 mg/dL (0-130); Magnesium 2.1 mg/dL (1.6-2.6); Osmolality,Calculated 276 (275-295); Potassium 4.2 mMol/L (3.4-5.1); Sodium 137 mMol/L (136-145); Total Protein 6.4 gm/dL (5.7-8.2); Triglycerides 109 mg/dL (30-150); eGFR > 60 See Note
[2025-03-03 06:38] LABS: Syphilis Nonreactive (Nonreactive)
[2025-03-03 06:58] LABS: Hepatitis A Antibody IgM Non Reactive (Non React); Hepatitis B Core Antibody IgM Non Reactive (Non React); Hepatitis B Surface Antigen Non Reactive (Non React); Hepatitis C Antibody Reactive (Non React)
--- NOTE | 2025-03-03 08:02 | XR_ITS ---
Examination: AP chest single view Technique one AP portable upright chest single view Exam date and time: March 03, 2025 0825 hours Comparison March 02, 2025 INDICATIONS: Shortness of breath today. FINDINGS: Again noted bilateral pneumonia, extensive in the right lung Mild enlargement cardiac contour Moderate osteopenia IMPRESSION: Again noted bilateral pneumonia, extensive in the right lung
[2025-03-03] MEDS: PANTOPRAZOLE INJ 40 MG VIAL IVP (09:38)
[2025-03-03] MEDS: OSELTAMIVIR 75 MG CAPSULE PO ×2 (09:39→21:43)
[2025-03-03 10:05] LABS: HIV 1/2 Confirmation* See Sep Rpt
--- NOTE | 2025-03-03 10:57 | ESPR_ITS ---
<Statement entered by Sumanth Terry MD - 03/04/25 16:18> TOTAL CC TIME: 45 MIN I saw and evaluated the patient. I reviewed the resident?s note and agree with findings and plan as documented in the resident?s note. Upon my evaluation, this patient had a high probability of imminent or life- threatening deterioration due to acute hypoxic resp failure which required my direct attention, intervention, and personal management. This time is exclusive of time spent on procedures, which are documented separately if performed. bilateral pneumonia in setting of HIV and likey AIDS given non compliance w/ meds cont broad spectrum abx - await fungitel - tamiflu although elevated RR - does not require intubation at this time await remainder of ID serological w/u he subjectively feels better - but objectively using abd muscles of resp w/ RR 30s and sometimes 40 -not appropriate to transfer out of ICU Close monitoring required Documentation for date of: 03/03/25 Subjective Subjective Interval history: 59-year-old male with past medical history of HIV (diagnosed in 1999) was admitted to the ICU on 03/02/2025 after coming to the ED with complaints of shortness of breath for the past few days. On assessment patient was a very poor historian and was having difficulty breathing and could not complete full sentences. Patient stated that around 10 days ago he started feeling sick, but that he got better and all of a sudden he got worse again. He mentioned that he had fevers, productive cough with some specks of blood, some diarrhea, burning sensation urination, and shortness of breath. Patient mentioned that he moved from [place] a few months ago and that he is new to the area. He mentioned that he had a viral load done a few months ago, but given the patient very poor historian he did not specify how long ago. He stated that he he has seen a physician recently, but not following any HIV specialist. Patient stated that sometimes he misses his doses of Biktarvy. He also mentioned that he stopped smoking 1 month ago and that he used to smoke around 1 pack/month. 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 Patient was admitted to the ICU given increased work of breathing and anticipation for respiratory failure due to exhaustion possibly requiring intubation. 03/03/25: Patient seen and examined in the ICU today. Overnight patient felt like he had subjective fevers however there were no recorded objective fevers. Patient remains tachypneic and tachycardic and his FiO2 is 40% this morning. Repeat chest x-ray showed slightly worsened right-sided pneumonia. Started patient on Bactrim due to his history of noncompliance with his ART. Will wait for beta 1, 3 D glucan results and clinical presentation to improve before we discontinue it. Also pending CD4 count and viral load. Appreciate ID recommendations. Will encourage patient's p.o. intake. Exam Vital Signs Temp Pulse Resp BP Pulse Ox O2 Del Method O2 Flow Rate 100.3 F 101 H 34 H 137/95 H 93 L High Flow Nasal Cannula 20 03/02/25 18:41 03/03/25 10:37 03/03/25 10:37 03/03/25 05:18 03/03/25 10:37 03/02/25 19:12 03/03/25 10:37 FiO2 40 03/03/25 10:37 Narrative Exam Constitutional: Well nourished and in no acute distress Head: Normocephalic/Atraumatic Eyes: PERRL , no conjunctival injection , symmetrical lids. ENMT: Moist Mucous Membranes, No trauma or injury. Neck: Supple to palpation, No JVD CVS: RRR, S1 and S2 present, no murmurs, rubs or gallops . RESP: CTAB, no SOB, no rales, rhonchi or wheezing. No respiratory Distress GI: Normal BS, Nontender/Nondistended. MSK: Full range of motion, No trauma or deformities or masses. Skin: Warm to touch, Dry. No rashes or lesions. 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 Sensation grossly intact. Psych: (AAO) x3 . Appropriate mood and affect. Objective Labs 03/03/25 04:25 03/03/25 04:25 Labs: Laboratory Results - last 24 hr 03/02/25 03/02/25 03/02/25 11:30 11:38 11:51 WBC 13.8 H RBC 4.82 Hgb 15.8 Hct 43.3 MCV 90 MCH 32.8 MCHC 36.5 RDW Std Deviation 41.9 Plt Count 130 L Neut % (Auto) 86 H Lymph % (Auto) 6 L [place] % (Auto) 7 Eos % (Auto) 1 Baso % (Auto) 1 Neut # (Auto) 11.8 H Lymph # (Auto) 0.8 L [place] # (Auto) 0.9 H Eos # (Auto) 0.1 Baso # (Auto) 0.1 Immature Gran # (Auto) 0.10 H Absolute Nucleated RBC 0.00 Immature Gran % 1 H Nucleated RBC % 0 PT 11.2 INR 1.0 Puncture Site ABG pH ABG pCO2 ABG pO2 ABG HCO3 ABG O2 Saturation ABG Base Excess VBG pH 7.46 VBG pCO2 41 VBG pO2 70 H VBG O2 Sat (Arlette) 94 L VBG Base Excess 5 H Oxygen Liter Flow Sodium 127 L Potassium 4.3 Chloride 93 L Carbon Dioxide 27.6 Anion Gap 6 L BUN 16 Creatinine 1.0 Estim Creat Clear Calc 73.4 eGFR > 60 BUN/Creatinine Ratio 16 Glucose 135 H Calculated Osmolality 258 L Lactic Acid 2.4 H Calcium 8.7 Corrected Calcium 8.7 Magnesium Total Bilirubin 1.1 AST 36 H ALT 13 Alkaline Phosphatase 81 Ammonia < 10 L Lactate Dehydrogenase Troponin I < 0.020 B-Natriuretic Peptide < 20 Total Protein 7.7 Albumin 4.0 Globulin 3.7 H Albumin/Globulin Ratio 1.1 L Triglycerides Cholesterol LDL Cholesterol, Calc HDL Cholesterol Cholesterol/HDL Ratio Procalcitonin 2.39 H Ur Collection Type Clean Catch Urine Color Yellow Urine Clarity Clear Urine pH 6.0 Ur Specific [place] 1.026 Urine Protein 2+ A Urine Glucose (UA) Trace Urine Ketones Negative Urine Blood 1+ A Urine Nitrite Negative Urine Bilirubin Negative Urine Urobilinogen (Auto) Negative Ur Leukocyte Esterase Negative Urine RBC 1 Urine WBC 3 Ur Squamous Epith Cells 1 Urine Bacteria Rare Ur Culture Indicated? Not Indicated Urine Opiates Screen Negative Urine Fentanyl Screen Negative Ur Barbiturates Screen Negative U Amphetamin/Meth Scrn Negative U Benzodiazepines Scrn Negative U Cocaine Metab Screen Negative U Marijuana (THC) Screen Negative Ethyl Alcohol < 10.0 Syphilis Serology Hepatitis A IgM Ab Hep Bs Antigen Hep B Core IgM Ab Hepatitis C Antibody HIV 1&2 Antibody Rapid RSV Rapid Misc Test Result Blood Type O Positive Antibody Screen NEGATIVE Blood Bank Wristband ID Yes 03/02/25 03/02/25 03/02/25 14:43 15:31 15:42 WBC RBC Hgb Hct MCV MCH MCHC RDW Std Deviation Plt Count Neut % (Auto) Lymph % (Auto) [place] % (Auto) Eos % (Auto) Baso % (Auto) Neut # (Auto) Lymph # (Auto) [place] # (Auto) Eos # (Auto) Baso # (Auto) Immature Gran # (Auto) Absolute Nucleated RBC Immature Gran % Nucleated RBC % PT INR Puncture Site Right Radial ABG pH 7.39 ABG pCO2 51 H ABG pO2 90 ABG HCO3 30 H ABG O2 Saturation 96 ABG Base Excess 4 H VBG pH VBG pCO2 VBG pO2 VBG O2 Sat ([place]) VBG Base Excess Oxygen Liter Flow 8 Sodium 131 L Potassium 4.4 Chloride 96 L Carbon Dioxide 30.3 Anion Gap 5 L BUN 15 Creatinine 0.9 Estim Creat Clear Calc 81.6 eGFR > 60 BUN/Creatinine Ratio 17 Glucose 132 H Calculated Osmolality 265 L Lactic Acid 1.1 Calcium 8.3 Corrected Calcium 8.5 Magnesium Total Bilirubin 1.2 AST 33 ALT 11 Alkaline Phosphatase 76 Ammonia Lactate Dehydrogenase Troponin I B-Natriuretic Peptide Total Protein 7.2 Albumin 3.8 Globulin 3.4 Albumin/Globulin Ratio 1.1 L Triglycerides Cholesterol LDL Cholesterol, Calc HDL Cholesterol Cholesterol/HDL Ratio Procalcitonin Ur Collection Type Urine Color Urine Clarity Urine pH Ur Specific [place] Urine Protein Urine Glucose (UA) Urine Ketones Urine Blood Urine Nitrite Urine Bilirubin Urine Urobilinogen (Auto) Ur Leukocyte Esterase Urine RBC Urine WBC Ur Squamous Epith Cells Urine Bacteria Ur Culture Indicated? Urine Opiates Screen Urine Fentanyl Screen Ur Barbiturates Screen U Amphetamin/Meth Scrn U Benzodiazepines Scrn U Cocaine Metab Screen U Marijuana (THC) Screen Ethyl Alcohol Syphilis Serology Hepatitis A IgM Ab Hep Bs Antigen Hep B Core IgM Ab Hepatitis C Antibody HIV 1&2 Antibody Rapid RSV Rapid Misc Test Result Cancelled Blood Type Antibody Screen Blood Bank Wristband ID 03/02/25 03/02/25 03/03/25 15:42 16:54 04:25 WBC 9.7 RBC 4.41 L Hgb 14.3 Hct 41.5 MCV 94 MCH 32.4 MCHC 34.5 RDW Std Deviation 44.7 H Plt Count 139 L Neut % (Auto) 90 H Lymph % (Auto) 4 L [place] % (Auto) 5 Eos % (Auto) 0 Baso % (Auto) 0 Neut # (Auto) 8.7 H Lymph # (Auto) 0.4 L [place] # (Auto) 0.5 Eos # (Auto) 0.0 Baso # (Auto) 0.0 Immature Gran # (Auto) 0.04 H Absolute Nucleated RBC 0.00 Immature Gran % 0 Nucleated RBC % 0 PT INR Puncture Site ABG pH ABG pCO2 ABG pO2 ABG HCO3 ABG O2 Saturation ABG Base Excess VBG pH VBG pCO2 VBG pO2 VBG O2 Sat ([place]lette) VBG Base Excess Oxygen Liter Flow Sodium 137 Potassium 4.2 Chloride 101 Carbon Dioxide 28.1 Anion Gap 8 BUN 15 Creatinine 0.6 Estim Creat Clear Calc 122.4 eGFR > 60 BUN/Creatinine Ratio 25 H Glucose 128 H Calculated Osmolality 276 Lactic Acid Calcium 8.4 Corrected Calcium 8.9 Magnesium 2.1 Total Bilirubin 0.8 AST 30 ALT 14 Alkaline Phosphatase 73 Ammonia Lactate Dehydrogenase 311 H Troponin I B-Natriuretic Peptide Total Protein 6.4 Albumin 3.4 Globulin 3.0 Albumin/Globulin Ratio 1.1 L Triglycerides 109 Cholesterol 113 L LDL Cholesterol, Calc 64 HDL Cholesterol 27 L Cholesterol/HDL Ratio 4.2 Procalcitonin Ur Collection Type Urine Color Urine Clarity Urine pH Ur Specific [place] Urine Protein Urine Glucose (UA) Urine Ketones Urine Blood Urine Nitrite Urine Bilirubin Urine Urobilinogen (Auto) Ur Leukocyte Esterase Urine RBC Urine WBC Ur Squamous Epith Cells Urine Bacteria Ur Culture Indicated? Urine Opiates Screen Urine Fentanyl Screen Ur Barbiturates Screen U Amphetamin/Meth Scrn U Benzodiazepines Scrn U Cocaine Metab Screen U Marijuana (THC) Screen Ethyl Alcohol Syphilis Serology Nonreactive Hepatitis A IgM Ab Non Reactive Hep Bs Antigen Non Reactive Hep B Core IgM Ab Non Reactive Hepatitis C Antibody Reactive A HIV 1&2 Antibody Rapid See Comment RSV Rapid Negative Misc Test Result Cancelled Blood Type Antibody Screen Blood Bank Wristband ID ABG Interpretation ABG results: 03/02/25 03/02/25 11:30 15:31 ABG pH 7.39 ABG pCO2 51 H ABG pO2 90 ABG HCO3 30 H ABG O2 Saturation 96 ABG Base Excess 4 H VBG pH 7.46 VBG pCO2 41 VBG pO2 70 H VBG Base Excess 5 H Quality Measures Quality Measures VTE prophylaxis Assessment & Plan Assessment Current Active Medications: Generic Name Dose Route Start Last Admin Trade Name Freq PRN Reason Stop Dose Admin Acetaminophen 650 mg 03/02/25 14:53 03/02/25 16:38 Acetaminophen 325 Mg Tablet PO 04/01/25 14:52 650 mg Q6H PRN Administration pain and Fever >100.4 Heparin Sodium (Porcine) 5,000 unit 03/02/25 22:00 03/03/25 05:32 Heparin Sod Inj 5000 Unit/Ml Vial SC 03/16/25 21:59 5,000 unit Q8HR ELEANOR Administration Azithromycin 500 mg/ Sodium 250 mls @ 250 mls/hr 03/02/25 16:00 03/02/25 17:56 Chloride IV 03/09/25 15:59 Infused Q24H ELEANOR Infusion Ceftriaxone Sodium/Dextrose 1,000 mg in 50 mls @ 100 mls/hr 03/02/25 15:00 03/02/25 17:50 Rocephin/D5w 1gm Iv Premix IV 03/09/25 14:59 Infused Q24H ELEANOR Infusion Labetalol HCl 5 mg 03/02/25 15:42 03/03/25 03:25 Labetalol Inj 5 Mg/Ml Vial 20 Ml IVP 04/01/25 15:41 5 mg Q6HR PRN Administration SBP >170 and hold if HR<70 Ondansetron HCl 4 mg 03/02/25 14:53 Ondansetron Inj 2 Mg/Ml Inj 2 Ml IV 04/01/25 14:52 Q6H PRN NAUSEA OR VOMITING Protocol Oseltamivir Phosphate 75 mg 03/02/25 21:30 03/03/25 09:39 Oseltamivir 75 Mg Capsule PO 03/09/25 21:29 75 mg BID ELEANOR Administration Pantoprazole Sodium 40 mg 03/02/25 15:00 03/03/25 09:38 Pantoprazole Inj 40 Mg Vial IVP 04/01/25 14:59 40 mg QDAY ELEANOR Administration Sodium Chloride 3 ml 03/02/25 14:11 03/02/25 14:32 Sodium Chloride Rt [place] 0.9% 3 Ml Nebu INH 04/01/25 14:10 3 ml PRN PRN Administration SOLN Trimethoprim/Sulfamethoxazole 3 tab 03/03/25 14:00 Trimethoprim/Sulfa 160/800 Ds Tablet PO 03/10/25 13:59 TID ELEANOR Plan 59-year-old male with past medical history of HIV (diagnosed in 1999) was admitted to the ICU on 03/02/2025 for acute hypoxic respiratory failure secondary to community-acquired pneumonia and sepsis. 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 This is most likely in the setting of sepsis Given patient's sepsis at this time we will defer from starting any antihypertensive medication for now Will place labetalol as needed for SBP above 170s and DBP above 100s ?Patient received 2 doses of labetalol overnight ? Will continue to monitor closely Respiratory: #Acute hypoxic respiratory failure #Community-acquired pneumonia #Influenza positive #Tachypnea Patient has been feeling short of breath with cough for around 10 days Chest x-ray that shows right sided pneumonia Bedside influenza A was positive Patient came in and met SIRS criteria 4 out of 4 along with lactic acidosis Patient is having increased work of breathing with respiratory rate in the 30s and anticipate possible need for intubation due to his oxygen in the future. Procalcitonin 2.39 Ordered cocci, RSV, and 1 3 beta D glucan We will start azithromycin 500 mg IV daily, Rocephin 1 mg daily, and Tamiflu 75 mg twice daily (03/02/2025?) Repeat chest x-ray is worsened this morning. Oxygen requirements did elevate to 40% FiO2 ?Started patient on Bactrim ? Will continue daily chest x-rays Renal: #Lactic acidosis?resolved Patient came in with lactic acid of 2.4 and went down to 1.1 Patient seems to be perfusing well Will continue to monitor #Hypoosmolar hyponatremia?resolved Patient's initial sodium was 127 Patient does seems hypovolemic We will get repeat CMP ?Encourage p.o. intake GI: #Diarrhea Patient has been complaining of some diarrhea recently, but has not noticed any blood Endo: No active disease Heme: #Leukocytosis Patient is WBC 13.8 today Patient does have right-sided pneumonia on chest x-ray Likely infective in the setting of sepsis Start patient on azithromycin, Rocephin, and Tamiflu ID: #Sepsis #Community-acquired pneumonia #Influenza A positive #Hx of HIV Patient has been feeling sick for around 10 days along with shortness of breath and cough. Patient was influenza positive at bedside Patient is on Biktarvy for HIV, but does state he missed some doses Procalcitonin 2.39 Patient got 1 L of IV fluids in the ER Ordered 1 L of IV fluids Did not start steroids given influenza positive Ordered CD4 count, HIV viral load, RSV, cocci, and 1-3 B D glucan Start azithromycin, Rocephin, and Tamiflu (03/02/2025?) ID specialist consulted, appreciate commendations Hospital Maintenance: Diet: N.p.o. DVT ppx: Heparin subcu GI ppx: protonix IV lines: PIV Rodriguez: None Code status: Full code Dispo: ICU for acute hypoxic respiratory failure secondary to community-acquired pneumonia and sepsis with anticipation for possible intubation due to exhaustion I discussed patient's care with attending physician, Dr Mara Emerson PGY3
[2025-03-03 12:40] LABS: Cocci Serology, IgM Negative (Negative)
[2025-03-03] MEDS: TRIMETHOPRIM/SULFA 160/800 DS TABLET 3 TAB PO ×2 (15:56→21:43)
[2025-03-03] MEDS: cefTRIAXone/D5w 1gm IV premix 1,000 MG/50 ML BAG IV (15:56)
--- NOTE | 2025-03-03 15:56 | PC.SS ---
Update: Patient on high flow oxygen, 20L. Patient is NPO. Precautions to R/O TB and Influenza A. Pending HIV test. Possible candidate for intubation.
[2025-03-03 16:26] LABS: Albumin, Serum 3.7 gm/dL (3.4-4.8); Anion Gap 10 (7-16); BUN/Creatinine Ratio 29 Ratio (12-20); Blood Urea Nitrogen 20 mg/dL (9-23); Calcium 9.1 mg/dL (8.3-10.6); Calcium (Corrected) 9.3 mg/dL (8.5-10.1); Chloride 102 mMol/L (98-107); Creatinine (Component) 0.7 mg/dL (0.6-1.3); Estimated Creatinine Clearance 104.9 mL/min (>60); Glucose 123 mg/dL (74-106); Osmolality,Calculated 284 (275-295); Phosphorous 2.4 mg/dL (2.4-5.1); Sodium 141 mMol/L (136-145); eGFR > 60 See Note
[2025-03-03] MEDS: AZITHROMYCIN INJ 500 MG in SODIUM CHLORIDE 0.9% 250 ML 250 ML 250 MG IV (16:35)
[2025-03-03 20:08] LABS: Base Excess 6 (-3-3); HCO3 31 mEq/L (20-26); Inspired Oxygen, FIO2 40 %; O2 Saturation 93 % (91-98); PCO2 45 mmHg (32.0-48.0); PO2 67 mmHg (83-108); pH, Arterial 7.45 (7.35-7.45)
[2025-03-03 20:12] LABS: Allen Test Performed/OK; Puncture Site Right Radial
[2025-03-04] VITALS (94 sets, daily range): BP systolic 106–201; BP diastolic 78–152; PULSE 93–127; RESP 0–50; TEMP 36.1–36.7; O2SAT 89–100; BMI 24.5
[2025-03-04 04:46] LABS: Base Excess 5 (-3-3); HCO3 29 mEq/L (20-26); Inspired Oxygen, FIO2 95 %; O2 Saturation 97 % (91-98); PCO2 38 mmHg (32.0-48.0); PO2 103 mmHg (83-108); pH, Arterial 7.49 (7.35-7.45)
[2025-03-04 04:54] LABS: Allen Test Performed/OK; Puncture Site Right Radial
[2025-03-04 05:21] LABS: Basophils % (Auto) 0 % (0-2.5); Eosinophils # (Auto) 0.1 Thou/mm3 (0.0-0.5); Eosinophils % (Auto) 1 % (0-10); Hematocrit 41.1 % (41.0-53.0); Hemoglobin 14.1 g/dL (13.5-16.0); Immature Granulocytes % (Auto) 1 % (0-0); Lymphocytes # (Auto) 0.5 Thou/mm3 (1.0-4.8); Lymphocytes % (Auto) 4 % (10-50); Mean Corpuscular HGB Conc 34.3 g/dl (31.0-37.0); Mean Corpuscular Hemoglobin 32.6 pg (25.0-35.0); Mean Corpuscular Volume 95 fL (80-100); Monocytes % (Auto) 8 % (0-12); Neutrophils # (Auto) 10.7 Thou/mm3 (1.8-7.7); Neutrophils % (Auto) 86 % (37-80); Nucleated Red Blood Cell % 0 /100 WBC (0); Platelet Count 157 Thou/mm3 (140-440); RDW Standard Deviation 46.1 fL (35.1-43.9); Red Blood Count 4.33 Miln/mm3 (4.50-5.90); White Blood Count 12.4 Thou/mm3 (3.8-10.6)
[2025-03-04] MEDS: HEPARIN SOD INJ 5000 UNIT/ML VIAL SC ×3 (05:40→21:03)
[2025-03-04] MEDS: TRIMETHOPRIM/SULFA 160/800 DS TABLET 3 TAB PO ×3 (05:40→23:34)
[2025-03-04 05:50] LABS: Alanine Aminotransferase 12 U/L (10-49); Albumin, Serum 3.7 gm/dL (3.4-4.8); Albumin/Globulin Ratio 1.1 (1.2-2.2); Alkaline Phosphatase 75 U/L (46-116); Anion Gap 9 (7-16); Aspartate Amino Transferase 24 U/L (0-34); BUN/Creatinine Ratio 34 Ratio (12-20); Bilirubin,Total 0.5 mg/dL (0.3-1.2); Blood Urea Nitrogen 24 mg/dL (9-23); Calcium (Corrected) 9.2 mg/dL (8.5-10.1); Carbon Dioxide 29.5 mMol/L (20.0-31.0); Chloride 104 mMol/L (98-107); Creatinine (Component) 0.7 mg/dL (0.6-1.3); Estimated Creatinine Clearance 104.9 mL/min (>60); Globulin 3.4 gm/dL (2.3-3.5); Glucose 100 mg/dL (74-106); Osmolality,Calculated 287 (275-295); Sodium 142 mMol/L (136-145); Total Protein 7.1 gm/dL (5.7-8.2); eGFR > 60 See Note
--- NOTE | 2025-03-04 07:00 | XR_ITS ---
Examination: AP chest single view TECHNIQUE: AP portable upright chest single view Standing time: March 04, 2025, 0629 hours Comparison March 03, 2025 INDICATIONS: Shortness of breath today. FINDINGS: Prominent pneumonia right mid and lower lung zone Moderate enlargement left ventricle with mild vascular congestion IMPRESSION: Prominent right lung pneumonia again noted
[2025-03-04] MEDS: OSELTAMIVIR 75 MG CAPSULE PO ×2 (08:57→20:48)
[2025-03-04] MEDS: LABETALOL INJ 5 MG/ML VIAL 20 ML IVP ×2 (08:57→13:03)
[2025-03-04] MEDS: PANTOPRAZOLE INJ 40 MG VIAL IVP (08:57)
--- NOTE | 2025-03-04 10:31 | PD.IDPROG ---
Subjective Subjective Interval history: on both bactrim and rocephin, LDH high. cxr with more of a lobar pneumonia. unusual for pjp bc pos late, so may be contaminated even though 2/2 pos Exam Vital Signs Temp Pulse Resp BP Pulse Ox O2 Del Method O2 Flow Rate 97.8 F 98 40 H 172/106 H 95 High Flow Nasal Cannula 40 03/04/25 04:00 03/04/25 10:03 03/04/25 10:03 03/04/25 08:57 03/04/25 10:03 03/03/25 20:00 03/04/25 10:03 FiO2 40 03/04/25 10:03 Narrative Exam not a great historian. on O2. seems confused to me. unable to reliably answer questions. Objective - Internal Medicine Labs 03/04/25 04:40 03/04/25 04:40 Labs: Laboratory Results - last 24 hr 03/02/25 03/03/25 03/03/25 15:42 15:46 19:58 WBC RBC Hgb Hct MCV MCH MCHC RDW Std Deviation Plt Count Neut % (Auto) Lymph % (Auto) [place] % (Auto) Eos % (Auto) Baso % (Auto) Neut # (Auto) Lymph # (Auto) [place] # (Auto) Eos # (Auto) Baso # (Auto) Immature Gran # (Auto) Absolute Nucleated RBC Immature Gran % Nucleated RBC % Puncture Site Right Radial ABG pH 7.45 ABG pCO2 45 ABG pO2 67 L D ABG HCO3 31 H ABG O2 Saturation 93 ABG Base Excess 6 H FiO2 40 Sodium 141 Potassium 4.0 Chloride 102 Carbon Dioxide 29.0 Anion Gap 10 BUN 20 Creatinine 0.7 Estim Creat Clear Calc 104.9 eGFR > 60 BUN/Creatinine Ratio 29 H Glucose 123 H Calculated Osmolality 284 Calcium 9.1 Corrected Calcium 9.3 Phosphorus 2.4 Magnesium Total Bilirubin AST ALT Alkaline Phosphatase Total Protein Albumin 3.7 Globulin Albumin/Globulin Ratio Coccidioides IgM Ab Negative HIV-1 RNA (PCR) Cancelled HIV-1 RNA (PCR) log Cancelled 03/04/25 03/04/25 04:24 04:40 WBC 12.4 H RBC 4.33 L Hgb 14.1 Hct 41.1 MCV 95 MCH 32.6 MCHC 34.3 RDW Std Deviation 46.1 H Plt Count 157 Neut % (Auto) 86 H Lymph % (Auto) 4 L [place] % (Auto) 8 Eos % (Auto) 1 Baso % (Auto) 0 Neut # (Auto) 10.7 H Lymph # (Auto) 0.5 L [place] # (Auto) 1.0 H Eos # (Auto) 0.1 Baso # (Auto) 0.0 Immature Gran # (Auto) 0.10 H Absolute Nucleated RBC 0.00 Immature Gran % 1 H Nucleated RBC % 0 Puncture Site Right Radial ABG pH 7.49 H ABG pCO2 38 ABG pO2 103 D ABG HCO3 29 H ABG O2 Saturation 97 ABG Base Excess 5 H FiO2 95 Sodium 142 Potassium 4.0 Chloride 104 Carbon Dioxide 29.5 Anion Gap 9 BUN 24 H Creatinine 0.7 Estim Creat Clear Calc 104.9 eGFR > 60 BUN/Creatinine Ratio 34 H Glucose 100 Calculated Osmolality 287 Calcium 9.0 Corrected Calcium 9.2 Phosphorus Magnesium 2.0 Total Bilirubin 0.5 AST 24 ALT 12 Alkaline Phosphatase 75 Total Protein 7.1 Albumin 3.7 Globulin 3.4 Albumin/Globulin Ratio 1.1 L Coccidioides IgM Ab HIV-1 RNA (PCR) HIV-1 RNA (PCR) log ABG Interpretation ABG results: 03/02/25 03/02/25 03/03/25 11:30 15:31 19:58 ABG pH 7.39 7.45 ABG pCO2 51 H 45 ABG pO2 90 67 L D ABG HCO3 30 H 31 H ABG O2 Saturation 96 93 ABG Base Excess 4 H 6 H VBG pH 7.46 VBG pCO2 41 VBG pO2 70 H VBG Base Excess 5 H 03/04/25 04:24 ABG pH 7.49 H ABG pCO2 38 ABG pO2 103 D ABG HCO3 29 H ABG O2 Saturation 97 ABG Base Excess 5 H VBG pH VBG pCO2 VBG pO2 VBG Base Excess Assessment & Plan A&P Narrative hiv by report flu a by rx. I can not find the test though possible pjp infection, LDH high but has lobar pneumonia on cxr, but had persistent sx. confusion with pending labs and was here in ED in 2022 hypoxemia with pneumonia and tachypnea as noted pneumonia, rll. baseline labs pending. looks like he maybe diabetic. was in ED in 2022 so maybe he has been here longer than stated he was released from incarceration so place of aquisition also not yet known. current empiric rx ok for now if hypoxic, addition of prednisone ok pending more data high ldh and ongoing hypoxemia are what we have at the moment. prognosis guarded. ok to start hiv rx with whatever we have on formulary , they are all po ok to just leave on bactrim Time Spent With Patient Time: Total time spent is greater than 50% in coordination of care (as documented) at patient's floor/unit and/or counseling patient:
--- NOTE | 2025-03-04 10:59 | PD.IDPROG ---
Subjective Subjective Interval history: airborne precautions are not required as qtf is part of routine hiv testing and his hx is not consistent with tb he was also incarcerated for a while (see ED notes) in 2022. Exam Vital Signs Temp Pulse Resp BP Pulse Ox O2 Del Method O2 Flow Rate 97.8 F 98 40 H 172/106 H 95 High Flow Nasal Cannula 40 03/04/25 04:00 03/04/25 10:03 03/04/25 10:03 03/04/25 08:57 03/04/25 10:03 03/03/25 20:00 03/04/25 10:03 FiO2 40 03/04/25 10:03 Narrative Exam goofy. not reliable as a historian. on significant O2 Objective - Internal Medicine Labs 03/04/25 04:40 03/04/25 04:40 Labs: Laboratory Results - last 24 hr 03/02/25 03/03/25 03/03/25 15:42 15:46 19:58 WBC RBC Hgb Hct MCV MCH MCHC RDW Std Deviation Plt Count Neut % (Auto) Lymph % (Auto) [place] % (Auto) Eos % (Auto) Baso % (Auto) Neut # (Auto) Lymph # (Auto) [place] # (Auto) Eos # (Auto) Baso # (Auto) Immature Gran # (Auto) Absolute Nucleated RBC Immature Gran % Nucleated RBC % Puncture Site Right Radial ABG pH 7.45 ABG pCO2 45 ABG pO2 67 L D ABG HCO3 31 H ABG O2 Saturation 93 ABG Base Excess 6 H FiO2 40 Sodium 141 Potassium 4.0 Chloride 102 Carbon Dioxide 29.0 Anion Gap 10 BUN 20 Creatinine 0.7 Estim Creat Clear Calc 104.9 eGFR > 60 BUN/Creatinine Ratio 29 H Glucose 123 H Calculated Osmolality 284 Calcium 9.1 Corrected Calcium 9.3 Phosphorus 2.4 Magnesium Total Bilirubin AST ALT Alkaline Phosphatase Total Protein Albumin 3.7 Globulin Albumin/Globulin Ratio Coccidioides IgM Ab Negative HIV-1 RNA (PCR) Cancelled HIV-1 RNA (PCR) log Cancelled 03/04/25 03/04/25 04:24 04:40 WBC 12.4 H RBC 4.33 L Hgb 14.1 Hct 41.1 MCV 95 MCH 32.6 MCHC 34.3 RDW Std Deviation 46.1 H Plt Count 157 Neut % (Auto) 86 H Lymph % (Auto) 4 L [place] % (Auto) 8 Eos % (Auto) 1 Baso % (Auto) 0 Neut # (Auto) 10.7 H Lymph # (Auto) 0.5 L [place] # (Auto) 1.0 H Eos # (Auto) 0.1 Baso # (Auto) 0.0 Immature Gran # (Auto) 0.10 H Absolute Nucleated RBC 0.00 Immature Gran % 1 H Nucleated RBC % 0 Puncture Site Right Radial ABG pH 7.49 H ABG pCO2 38 ABG pO2 103 D ABG HCO3 29 H ABG O2 Saturation 97 ABG Base Excess 5 H FiO2 95 Sodium 142 Potassium 4.0 Chloride 104 Carbon Dioxide 29.5 Anion Gap 9 BUN 24 H Creatinine 0.7 Estim Creat Clear Calc 104.9 eGFR > 60 BUN/Creatinine Ratio 34 H Glucose 100 Calculated Osmolality 287 Calcium 9.0 Corrected Calcium 9.2 Phosphorus Magnesium 2.0 Total Bilirubin 0.5 AST 24 ALT 12 Alkaline Phosphatase 75 Total Protein 7.1 Albumin 3.7 Globulin 3.4 Albumin/Globulin Ratio 1.1 L Coccidioides IgM Ab HIV-1 RNA (PCR) HIV-1 RNA (PCR) log ABG Interpretation ABG results: 03/02/25 03/02/25 03/03/25 11:30 15:31 19:58 ABG pH 7.39 7.45 ABG pCO2 51 H 45 ABG pO2 90 67 L D ABG HCO3 30 H 31 H ABG O2 Saturation 96 93 ABG Base Excess 4 H 6 H VBG pH 7.46 VBG pCO2 41 VBG pO2 70 H VBG Base Excess 5 H 03/04/25 04:24 ABG pH 7.49 H ABG pCO2 38 ABG pO2 103 D ABG HCO3 29 H ABG O2 Saturation 97 ABG Base Excess 5 H VBG pH VBG pCO2 VBG pO2 VBG Base Excess Assessment & Plan A&P Narrative hiv by report flu a by rx. I can not find the test though. if you find it. be sure every one sees it. usual rx for flu is tamiflu bid for 5days possible pjp infection, LDH high but has lobar pneumonia on cxr, but had persistent sx. confusion with pending labs and was here in ED in 2022 hypoxemia with pneumonia and tachypnea as noted pneumonia, rll. baseline labs pending. looks like he maybe diabetic. was in ED in 2022 so maybe he has been here longer than stated he was released from incarceration so place of aquisition also not yet known. along with sexual preference current empiric rx ok for now if hypoxic, addition of prednisone ok pending more data high ldh and ongoing hypoxemia are what we have at the moment. prognosis guarded. ok to start hiv rx with whatever we have on formulary , they are all po ok to just leave on bactrim and not add the vanco as bc were done in ED and are now old . so germ may be a contaminant even if both bc pos as they were likely done at the same time, even though they are listed as 5 mins apart Time Spent With Patient Time: Total time spent is greater than 50% in coordination of care (as documented) at patient's floor/unit and/or counseling patient:
--- NOTE | 2025-03-04 11:01 | PD.RESPRO ---
Documentation for date of: 03/04/25 Subjective Subjective Interval history: 59-year-old male with past medical history of HIV (diagnosed in 1999) was admitted to the ICU on 03/02/2025 after coming to the ED with complaints of shortness of breath for the past few days. On assessment patient was a very poor historian and was having difficulty breathing and could not complete full sentences. Patient stated that around 10 days ago he started feeling sick, but that he got better and all of a sudden he got worse again. He mentioned that he had fevers, productive cough with some specks of blood, some diarrhea, burning sensation urination, and shortness of breath. Patient mentioned that he moved from [place] a few months ago and that he is new to the area. He mentioned that he had a viral load done a few months ago, but given the patient very poor historian he did not specify how long ago. He stated that he he has seen a physician recently, but not following any HIV specialist. Patient stated that sometimes he misses his doses of Biktarvy. He also mentioned that he stopped smoking 1 month ago and that he used to smoke around 1 pack/month. 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 Patient was admitted to the ICU given increased work of breathing and anticipation for respiratory failure due to exhaustion possibly requiring intubation. 03/03/25: Patient seen and examined in the ICU today. Overnight patient felt like he had subjective fevers however there were no recorded objective fevers. Patient remains tachypneic and tachycardic and his FiO2 is 40% this morning. Repeat chest x-ray showed slightly worsened right-sided pneumonia. Started patient on Bactrim due to his history of noncompliance with his ART. Will wait for beta 1, 3 D glucan results and clinical presentation to improve before we discontinue it. Also pending CD4 count and viral load. Appreciate ID recommendations. Will encourage patient's p.o. intake. 03/04/2025: Patient was seen and examined in the ICU today. Overnight patient remained about the same in terms of his respiratory status with increased work of breathing. He remained tachypneic and tachycardic with an FiO2 of 50% and chest x-ray once again confirm worsening right sided pneumonia. Dr Pierce saw the patient and recommended to continue Tamiflu Rocephin azithromycin and Bactrim as well as starting the patient on prednisone 40 p.o. twice daily. We also started patient on ART. Patient blood cultures came back positive for GPC bacteremia on both bottles and he is adequately covered with the current antibiotics. Ordered repeat blood cultures today. Later in the afternoon patient became suddenly more tachypneic and tachycardic and his FiO2 had to be bumped up to 100% and he remained satting in the low 90s. At bedside patient was agitated and he was threatening to leave AGAINST MEDICAL ADVICE however after further evaluation of his mentation patient was only alert to self and place but not to time and he was stating that his uncle sleeping next-door and he needed to go home to see his mom. Due to patient's increased work of breathing the decision was made to sedate and intubate patient. Postextubation chest x-ray revealed 90% right sided pneumothorax that did not seem to be under tension. Subsequently a chest tube was inserted on the right side which revealed brown-colored pleural fluid. Follow-up x-ray revealed adequate positioning of the chest tube on the right wall but the pneumothorax remained. Will continue to reevaluate patient's pneumothorax daily as well as attempting to wean off of ventilator. Of note: Multiple attempts were done to contact patient's relatives in order to obtain consent for procedures however they were unsuccessful and procedures were done urgently as patient's critical status continued to worsen. Exam Vital Signs Temp Pulse Resp BP Pulse Ox O2 Del Method O2 Flow Rate 97.8 F 98 40 H 172/106 H 95 High Flow Nasal Cannula 40 03/04/25 04:00 03/04/25 10:03 03/04/25 10:03 03/04/25 08:57 03/04/25 10:03 03/03/25 20:00 03/04/25 10:03 FiO2 40 03/04/25 10:03 Narrative Exam Constitutional: Well nourished and in respiratory distress CVS: RRR, S1 and S2 present, no murmurs, rubs or gallops . RESP: CTAB, shortness of breath with no breath sounds heard on the right lung kruse. There is rhonchi heard on the left lung kruse with wheezing. There is a chest tube inserted in the mid axillary line on the right. GI: Normal BS, Nontender/Nondistended. MSK: Full range of motion, No trauma or deformities or masses. Skin: Warm to touch, Dry. No rashes or lesions. No hematomas Neuro: Deferred. Patient sedated and withdraws from noxious stimuli. Objective Labs 03/08/25 05:21 03/08/25 05:21 Labs: Laboratory Results - last 24 hr 03/02/25 03/03/25 03/03/25 15:42 15:46 19:58 WBC RBC Hgb Hct MCV MCH MCHC RDW Std Deviation Plt Count Neut % (Auto) Lymph % (Auto) [place] % (Auto) Eos % (Auto) Baso % (Auto) Neut # (Auto) Lymph # (Auto) [place] # (Auto) Eos # (Auto) Baso # (Auto) Immature Gran # (Auto) Absolute Nucleated RBC Immature Gran % Nucleated RBC % Puncture Site Right Radial ABG pH 7.45 ABG pCO2 45 ABG pO2 67 L D ABG HCO3 31 H ABG O2 Saturation 93 ABG Base Excess 6 H FiO2 40 Sodium 141 Potassium 4.0 Chloride 102 Carbon Dioxide 29.0 Anion Gap 10 BUN 20 Creatinine 0.7 Estim Creat Clear Calc 104.9 eGFR > 60 BUN/Creatinine Ratio 29 H Glucose 123 H Calculated Osmolality 284 Calcium 9.1 Corrected Calcium 9.3 Phosphorus 2.4 Magnesium Total Bilirubin AST ALT Alkaline Phosphatase Total Protein Albumin 3.7 Globulin Albumin/Globulin Ratio Coccidioides IgM Ab Negative HIV-1 RNA (PCR) Cancelled HIV-1 RNA (PCR) log Cancelled 03/04/25 03/04/25 04:24 04:40 WBC 12.4 H RBC 4.33 L Hgb 14.1 Hct 41.1 MCV 95 MCH 32.6 MCHC 34.3 RDW Std Deviation 46.1 H Plt Count 157 Neut % (Auto) 86 H Lymph % (Auto) 4 L [place] % (Auto) 8 Eos % (Auto) 1 Baso % (Auto) 0 Neut # (Auto) 10.7 H Lymph # (Auto) 0.5 L [place] # (Auto) 1.0 H Eos # (Auto) 0.1 Baso # (Auto) 0.0 Immature Gran # (Auto) 0.10 H Absolute Nucleated RBC 0.00 Immature Gran % 1 H Nucleated RBC % 0 Puncture Site Right Radial ABG pH 7.49 H ABG pCO2 38 ABG pO2 103 D ABG HCO3 29 H ABG O2 Saturation 97 ABG Base Excess 5 H FiO2 95 Sodium 142 Potassium 4.0 Chloride 104 Carbon Dioxide 29.5 Anion Gap 9 BUN 24 H Creatinine 0.7 Estim Creat Clear Calc 104.9 eGFR > 60 BUN/Creatinine Ratio 34 H Glucose 100 Calculated Osmolality 287 Calcium 9.0 Corrected Calcium 9.2 Phosphorus Magnesium 2.0 Total Bilirubin 0.5 AST 24 ALT 12 Alkaline Phosphatase 75 Total Protein 7.1 Albumin 3.7 Globulin 3.4 Albumin/Globulin Ratio 1.1 L Coccidioides IgM Ab HIV-1 RNA (PCR) HIV-1 RNA (PCR) log ABG Interpretation ABG results: 03/02/25 03/02/25 03/03/25 11:30 15:31 19:58 ABG pH 7.39 7.45 ABG pCO2 51 H 45 ABG pO2 90 67 L D ABG HCO3 30 H 31 H ABG O2 Saturation 96 93 ABG Base Excess 4 H 6 H VBG pH 7.46 VBG pCO2 41 VBG pO2 70 H VBG Base Excess 5 H 03/04/25 04:24 ABG pH 7.49 H ABG pCO2 38 ABG pO2 103 D ABG HCO3 29 H ABG O2 Saturation 97 ABG Base Excess 5 H VBG pH VBG pCO2 VBG pO2 VBG Base Excess Quality Measures Quality Measures VTE prophylaxis Assessment & Plan Assessment Current Active Medications: Generic Name Dose Route Start Last Admin Trade Name Freq PRN Reason Stop Dose Admin Acetaminophen 650 mg 03/02/25 14:53 03/02/25 16:38 Acetaminophen 325 Mg Tablet PO 04/01/25 14:52 650 mg Q6H PRN Administration pain and Fever >100.4 Azithromycin 500 mg 03/05/25 09:00 Azithromycin 250 Mg Tablet PO 03/05/25 12:00 QDAY ELEANOR Heparin Sodium (Porcine) 5,000 unit 03/02/25 22:00 03/04/25 05:40 Heparin Sod Inj 5000 Unit/Ml Vial SC 03/16/25 21:59 5,000 unit Q8HR ELEANOR Administration Ceftriaxone Sodium/Dextrose 1,000 mg in 50 mls @ 100 mls/hr 03/02/25 15:00 03/03/25 17:27 Rocephin/D5w 1gm Iv Premix IV 03/09/25 14:59 Infused Q24H ELEANOR Infusion Labetalol HCl 5 mg 03/02/25 15:42 03/04/25 08:57 Labetalol Inj 5 Mg/Ml Vial 20 Ml IVP 04/01/25 15:41 5 mg Q6HR PRN Administration SBP >170 and hold if HR<70 Ondansetron HCl 4 mg 03/02/25 14:53 Ondansetron Inj 2 Mg/Ml Inj 2 Ml IV 04/01/25 14:52 Q6H PRN NAUSEA OR VOMITING Protocol Oseltamivir Phosphate 75 mg 03/02/25 21:30 03/04/25 08:57 Oseltamivir 75 Mg Capsule PO 03/09/25 21:29 75 mg BID ELEANOR Administration Prednisone 40 mg 03/04/25 21:00 Prednisone 20 Mg Tablet PO 03/11/25 10:49 BID ELEANOR Sodium Chloride 3 ml 03/02/25 14:11 03/02/25 14:32 Sodium Chloride Rt [place] 0.9% 3 Ml Nebu INH 04/01/25 14:10 3 ml PRN PRN Administration SOLN Trimethoprim/Sulfamethoxazole 3 tab 03/03/25 14:00 03/04/25 05:40 Trimethoprim/Sulfa 160/800 Ds Tablet PO 03/10/25 13:59 3 tab TID ELEANOR Administration Plan 59-year-old male with past medical history of HIV (diagnosed in 1999) was admitted to the ICU on 03/02/2025 for acute hypoxic respiratory failure secondary to community-acquired pneumonia and sepsis. 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 CVS: #Hypertension #Tachycardia Patient was having high blood pressure in the 150s over 90s to 100s and tachycardia in the 110s to 120s. This is most likely in the setting of sepsis Given patient's sepsis at this time we will defer from starting any antihypertensive medication for now Will place labetalol as needed for SBP above 170s and DBP above 100s ?Patient received 2 doses of labetalol overnight ? Will continue to monitor closely Respiratory: #Acute hypoxic respiratory failure #Community-acquired pneumonia #Influenza positive Patient has been feeling short of breath with cough for around 10 days Chest x-ray that shows right sided pneumonia Bedside influenza A was positive Patient came in and met SIRS criteria 4 out of 4 along with lactic acidosis Ordered cocci, RSV, and 1 3 beta D glucan Plan: ? Continue azithromycin 500 mg IV daily, Rocephin 1 mg daily, and Tamiflu 75 mg twice daily (03/02/2025?) ?Continue on Bactrim and prednisone ? Will continue daily chest x-rays #Right-sided pneumothorax status post chest tube Patient's respiratory failure worsened despite adequate medical management and he was subsequently intubated for airway protection and was found to have a right sided 90% pneumothorax. Patient had a chest tube inserted on the right side which drained brown-colored pleural fluid which was sent for cytology Follow-up bronchoscopy done by Dr. Narayanan and Dr. Espinoza revealed a large mucous plug that was necrotic on the right bronchus Plan: ? Will repeat daily chest x-ray ? Will continue to evaluate chest tube output ? Will follow-up on pleural fluid cultures, chemistry and cytology Renal: #Lactic acidosis?resolved #Hypoosmolar hyponatremia?resolved GI: #Diarrhea?resolved Endo: No active disease Heme: #Leukocytosis Patient does have right-sided pneumonia on chest x-ray Likely infective in the setting of sepsis Start patient on azithromycin, Rocephin, and Tamiflu ID: #Sepsis #Community-acquired pneumonia #Influenza A positive #Hx of HIV Patient has been feeling sick for around 10 days along with shortness of breath and cough. Patient was influenza positive at bedside Patient is on Biktarvy for HIV, but does state he missed some doses Procalcitonin 2.39 Patient got 1 L of IV fluids in the ER Ordered 1 L of IV fluids Did not start steroids given influenza positive Ordered CD4 count, HIV viral load, RSV, cocci, and 1-3 B D glucan Continue on azithromycin, Rocephin, and Tamiflu (03/02/2025?) Continue on Bactrim and prednisone Started patient on ART with raltegravir and entricitabine and tenofovir ID specialist consulted, appreciate commendations Hospital Maintenance: Diet: N.p.o. DVT ppx: Heparin subcu GI ppx: protonix IV lines: PIV Rodriguez: None Code status: Full code Dispo: ICU for acute hypoxic respiratory failure secondary to community-acquired pneumonia and sepsis I discussed patient's care with attending physician, Dr Oracio Emerson PGY3 Attending Provider Attestation/Addendum Patient seen and examined with above resident, Satish Emerson MD. I agree with the findings, assessment, and plan of care as document except for any differences below. Patient with influenza pneumonia with superimposed bacterial infection to be determined. Patient with declining respiratory status throughout the day despite maximal support with high humidity, high flow nasal cannula. Patient subsequently required intubation for increased work of breathing. Follow-up chest x-ray showed large right-sided pneumothorax with tension physiology. Chest tube placed percutaneously. Chest x-ray showed failure of full reexpansion of the lung and subsequent bronchoscopy was done to clear the airway as there was likely a component of atelectasis compensated for volume expansion of the area outside of the lung. Patient remains on appropriate empiric antibiotics and Tamiflu. Patient also with HIV and started on Bactrim as it is unclear whether or not he was compliant with his ART therapy. Patient's family was contacted by telephone but have yet to be present at bedside. Patient's course likely will be complicated. Will continue on lung protective ventilator settings with appropriate plateau pressure at this time. Total critical care time: I personally spent 40 minutes for review of physiologic parameters, directing plan of care throughout the day, coordination of care with other specialties, and counseling patient at bedside. This is exclusive of time spent teaching housestaff or performing any separate billable procedures. Patient remains at high risk for further morbidity and mortality warranting close monitoring and care only available in the intensive care unit. Patient receiving critical care services for community-acquired pneumonia secondary to influenza A and superimposed bacterial infection with acute hypoxic respiratory failure.
--- NOTE | 2025-03-04 11:39 | PC.SS ---
rounding: Patient in ICU due to 02 dropping. Afebrile. Productive cough. Patient on high flow @ 40L. Iso precautions. R/o TB. Influenza +. No skin issues. Npo due to risk of aspiration. No i.v. fluids. No buitrago.
[2025-03-04 12:06] LABS: Misc Send Out* See Sep Rpt
[2025-03-04 12:33] LABS: Cocci Serology, IgG Negative (Negative)
--- NOTE | 2025-03-04 13:20 | ESCONSULT_ITS ---
RE: TORIN DAVID : 1965 DATE OF CONSULTATION: 03/04/2025 REFERRING PHYSICIAN: Sumanth Terry M.D. REASON FOR CONSULTATION: lobar pulmonary infection with respiratory failure. HISTORY OF PRESENT ILLNESS: The patient is an unfortunate 59-year-old man. He is not a good historian. History is obtained apparently from the record. He has been sick for up to a couple of weeks. His LDH was rather high, so he may have pneumocystis. Records suggest he also has the flu. I cannot find that test result though, so I am not quite sure how that diagnosis was made. His HIV status is unknown. The tests are pending. I ordered a full panel of baseline tests as we have no tests available at all and the patient does not know his numbers. He denies other health problems. His LDH is his high so he may have pneumocystis. I will check on him again in a few days. DT: 10:57:24 TT: 11:18:00 Ref: [id number] - TID: [id number] MTD
[2025-03-04] MEDS: ALBUTEROL/IPRATROPIUM (Duoneb) RT SOL 3 ML NEBU INH (14:34)
[2025-03-04] MEDS: EMTRICITABINE 200 MG/TENOFOVIR 300 MG TAB (NON-FORM) 1 TAB PO (14:35)
[2025-03-04] MEDS: cefTRIAXone/D5w 1gm IV premix 1,000 MG/50 ML BAG IV (14:36)
[2025-03-04] MEDS: NICOTINE PATCH 14 MG/24 HR PATCH.TD24 TOP (14:36)
[2025-03-04] MEDS: MIDAZOLAM INJ 1 MG/ML VIAL 2 ML 5 MG IV ×2 (16:20→17:32)
[2025-03-04] MEDS: ETOMIDATE INJ 2 MG/ML VIAL 10 ML 25 MG IVP (16:36)
[2025-03-04] MEDS: SUCCINYLCHOLINE INJ 20 MG/ML VIAL 10 ML 80 MG IV (16:36)
--- NOTE | 2025-03-04 16:40 | XR_ITS ---
Examination: AP chest single view Technique one AP portable semiupright chest single view Standing spine: March 04, 2025 1703 hours Comparison March 04, 2025 0629 hours INDICATIONS: Hypoxic respiratory failure, postintubation posterior orogastric tube placement FINDINGS: Prominent right pneumothorax, 90% The trachea and the heart, however are not shifted to the left Endotracheal tube tip projects 7.6 cm above Elissa Orogastric tube is in the stomach satisfactory position. Mild prominence left ventricle IMPRESSION: 90% right pneumothorax which does not appear to be under tension
[2025-03-04] MEDS: fentaNYL 2,500 MCG/250 ML BAG 2,500 MCG/250 ML BAG IV (16:41)
[2025-03-04] MEDS: PROPOFOL 1,000 MG IVPB 1,000 MG/100 ML VIAL 2.133 MG IV (16:41)
--- NOTE | 2025-03-04 16:41 | PC.SS ---
Update: Patient intubated today.
--- NOTE | 2025-03-04 17:00 | PD.RESPROC ---
Procedures Procedure Date / Time 03/04/252101 Procedure Narrative Procedure Narrative: Procedure note: endotracheal intubation for mechanical ventilation. Time 4:36 PM Time out completed to verify correct patient, procedure, site, medication, and special equipment. Patient was flat and supine. Sedation & paralytics used including etomidate, succinylcholine, fentanly and propofol. Ambulatory bag and mask used for ventilation. Mac bladed inserted into the oropharynx to allow visualization of vocal cords and facilitated with video laryngoscope. Endotracheal tube inserted and stylus removed. Vesicular breath sounds present. Chest X-ray ordered to confirm placement - The patient's plan was discussed with attending Dr. Narayanan and senior residents Dr. Ki Renteria MD PGY1 Internal Medicine Attending attestation: I was present for entire procedure. Patient tolerated procedure well with no immediate complications. ET tube in adequate position. Follow-up x-ray shows right-sided pneumothorax. Will proceed with placement of chest tube. Intubation Indication(s): acute Resp Failure Informed consent obtained: procedure done urgently Time out done, and the following verified: correct patient, side and site, procedure and patient position Sedative: etomidate Mg given: 25 Paralytic: succinylcholine Mg given: 80 Laryngoscope: Sue Assist device used: fiber optic device ET tube size: 7.5 ET tube uncuffed: Yes Tube secured depth (cm): 20 Tube secured location: teeth Tube placement confirmation: visualized tube passing through cords, equal breath sounds bilaterally, no breath sounds over epigastrium and confirmation by capnometry Patient tolerated procedure: well EBL(ml): 3 Intubation complications: none
--- NOTE | 2025-03-04 17:00 | PC.NURSE ---
Patient has twice been getting out of bed and attempting to leave hospital. He stated that he needs to leave. He removed his high flow NC and desaturated to 69%, I placed his NC back on but patient became aggressive and wanted it removed. Dr. Narayanan and Dr. Emerson at bedside explaining to patient about need for intubation. When asked if he is okay to be intubated he stated that he does not want to be intubated here and that he could pick one up on the way home. Pt is oriented x3 but then starts to speak as if he is confused at time. I called SARINA Barnes to notify patient's condition worsening and need for intubation, calls went straight to voicencil. Intubation was done on an emergency bases. After intubation patient xray showed collapse of right lung, chest tube was ordered. Chest tube placed on the right upper chest on 20 cm of suction continously. Patient tolerated well after sedation was titrated up.
--- NOTE | 2025-03-04 18:15 | XR_ITS ---
Examination: AP chest single view TECHNIQUE: AP portable semiupright chest single view Exam date time: March 04, 2025 at 1848 hours Comparison March 04, 2025 1703 hours INDICATIONS: Large right pneumothorax on chest film March 04, 2025 1703 hours post chest tube placement FINDINGS: Right chest tube in excellent position Large right pneumothorax remains not under tension Tracheal tube tip approximately 7.7 cm above Elissa. Orogastric tube in the stomach satisfactory position IMPRESSION: Right chest tube in excellent position Large right pneumothorax remains
[2025-03-04 18:59] LABS: LDH (Lactate Dehydrogenase) 249 U/L (120-246)
[2025-03-04 19:29] LABS: Cult AFB Sendout- Sputum* See Sep Rpt; Cult, Viral* See Sep Rpt
[2025-03-04 19:32] LABS: Base Excess 2 (-3-3); HCO3 30 mEq/L (20-26); Inspired Oxygen, FIO2 100 %; O2 Saturation 97 % (91-98); PCO2 62 mmHg (32.0-48.0); PO2 104 mmHg (83-108); pH, Arterial 7.29 (7.35-7.45)
--- NOTE | 2025-03-04 19:32 | PD.INTPROC ---
Procedures Procedure Date / Time 03/04/251931 Bronchoscopy Bronscopy indication(s): removal of secretions and diagnostic BAL Informed consent obtained from: proc. done emergently Time out done and the following verified: correct patient, side and site, procedure and patient position Oxygen delivery: via mechanical vent. Vocal cords: other (Not visualized) Trachea: mid appears normal, distal appears normal and secretions noted Elissa: sharp in angle RUL & subsegmental branches: mucosa appears normal and purulent secretions RML & subsegmental branches: purulent secretions and inflammation RLL & subsegmental branches: mucosa appears normal, mucus plugging and purulent secretions LILI & subsegmental branches: mucosa appears normal LLL & subsegmental branches: mucosa appears normal Bronchoalveolar lavage: 30 mL of saline were injected into the right middle lobe, aspiration fluid. Brownish colored with no blood or mucus products EBL: 0 Patient tolerated procedure: well Complications: No Procedure comment: We did attempt to contact the patient's family on multiple occasions. He was in the best interest of the patient for reexpansion of the partially collapsed lung despite trial evacuation of pneumothorax as potential extraparenchymal cause. Successful clearance of all airways to the fourth generation.
[2025-03-04 19:37] LABS: Allen Test Performed/OK; Puncture Site Left Radial
[2025-03-04 19:56] LABS: Pleural Fluid WBC 39215 /cmm
[2025-03-04 20:06] LABS: Pleural Fluid Mononuclear 18 %; Pleural Fluid Polynuclear 82 %; Pleural Fluid RBC 9000 /cmm
[2025-03-04 20:07] LABS: Pleural Fluid Appearance Cloudy; Pleural Fluid Color Straw
[2025-03-04] MEDS: fentaNYL CIT INJ 50 mCg/ML AMP 2ML 200 MCG IVP (20:07)
--- NOTE | 2025-03-04 20:27 | PD.RESPROC ---
Procedures Procedure Date / Time 03/04/252026 Procedure Narrative Procedure Narrative: Attending attestation: I was present for entire procedure. Minimal blood loss. Patient tolerated procedure well with no significant hemodynamic changes. Successful placement on follow-up chest x-ray with tube aimed at the apex. Notably lung has not fully reexpanded. Will plan for bronchoscopy. Percutaneous Chest Tube Indication(s): Pneumothorax Informed consent obtained: implied and procedure done urgently Time out done and verified the following: correct patient, side and site, procedure and patient position Site cleansed with: Chlorhexidine Site: right and axillary Anesthetic used: 1% Lidocaine Catheter sized used: 8 F Seldinger technique used: no Chest tube connected to evacuation container: yes CXR ordered post procedure: yes Pleural fluid sent for the following test(s): cell count diff, LDH, total protein, glucose, gram stain, culture and cytology EBL(ml): 20 Complications/Comments: Procedure was performed with attending, Dr. Narayanan at bedside. Procedure was done as patient had a pneumothorax which was likely the cause of patient's declining respiratory status. Chest tube was inserted on the midaxillary line on the right without complications and minimal blood loss. Pleural fluid was sent for chemistry and cytology. The fluid was brown.
[2025-03-04 20:37] LABS: Amylase,Pleural Fluid 105 IU/L; Glucose,Pleural Fluid 8 mg/dL; LDH,Pleural Fluid > 4500 IU/L; Protein Total,Pleural Fluid 4.6 g/dL
[2025-03-04] MEDS: predniSONE 20 MG TABLET 40 MG PO (20:48)
[2025-03-04] MEDS: RALTEGRAVIR 400 MG TABLET PO (20:49)
--- NOTE | 2025-03-04 22:00 | XR_ITS ---
Examination: AP chest single view TECHNIQUE: AP portable upright chest single view Standing time: March 04, 2025 at 2158 hours Comparison March 04, 2025 1848 hours INDICATIONS: Post chest tube placement on the right for right pneumothorax FINDINGS: Right-sided chest tube satisfactory position Significant reexpansion of the lung, mild apical pneumothorax, 10% Tracheal tube orogastric tube satisfactory position IMPRESSION: Significant reexpansion of the lung, mild right apical pneumothorax 10%
[2025-03-04] MEDS: fentaNYL 2,500 MCG/250 ML BAG 2,500 MCG/250 ML BAG 12.5 MCG IV (23:38)
[2025-03-04] MEDS: PROPOFOL 1,000 MG IVPB 1,000 MG/100 ML VIAL 8.532 MG IV (23:41)
[2025-03-05] VITALS (30 sets, daily range): BP systolic 109–125; BP diastolic 73–82; PULSE 81–101; RESP 14–24; TEMP 36–36.4; O2SAT 94–99; BMI 24.5
[2025-03-05] MEDS: PROPOFOL 1,000 MG IVPB 1,000 MG/100 ML VIAL 8.532 MG IV ×2 (01:47→14:08)
[2025-03-05 04:52] LABS: Base Excess 5 (-3-3); HCO3 32 mEq/L (20-26); Inspired Oxygen, FIO2 100 %; O2 Saturation 100 % (91-98); PCO2 60 mmHg (32.0-48.0); PO2 177 mmHg (83-108); pH, Arterial 7.34 (7.35-7.45)
[2025-03-05 04:55] LABS: Allen Test Performed/OK; Puncture Site Left Radial
[2025-03-05] MEDS: TRIMETHOPRIM/SULFA 160/800 DS TABLET 3 TAB PO ×3 (05:07→21:00)
[2025-03-05] MEDS: HEPARIN SOD INJ 5000 UNIT/ML VIAL SC ×3 (05:07→21:01)
[2025-03-05 05:55] LABS: Basophils % (Auto) 0 % (0-2.5); Eosinophils % (Auto) 0 % (0-10); Hematocrit 40.5 % (41.0-53.0); Hemoglobin 13.6 g/dL (13.5-16.0); Immature Granulocytes % (Auto) 2 % (0-0); Immature Granulocytes Auto 0.15 Thou/mm3 (0.00-0.00); Lymphocytes # (Auto) 0.5 Thou/mm3 (1.0-4.8); Lymphocytes % (Auto) 5 % (10-50); Mean Corpuscular HGB Conc 33.6 g/dl (31.0-37.0); Mean Corpuscular Hemoglobin 32.9 pg (25.0-35.0); Mean Corpuscular Volume 98 fL (80-100); Monocytes # (Auto) 0.5 Thou/mm3 (0.0-0.8); Monocytes % (Auto) 6 % (0-12); Neutrophils # (Auto) 8.2 Thou/mm3 (1.8-7.7); Neutrophils % (Auto) 87 % (37-80); Nucleated Red Blood Cell % 0 /100 WBC (0); Platelet Count 200 Thou/mm3 (140-440); RDW Standard Deviation 48.8 fL (35.1-43.9); Red Blood Count 4.14 Miln/mm3 (4.50-5.90); White Blood Count 9.5 Thou/mm3 (3.8-10.6)
[2025-03-05 06:28] LABS: Alanine Aminotransferase 12 U/L (10-49); Albumin, Serum 3.5 gm/dL (3.4-4.8); Albumin/Globulin Ratio 1.1 (1.2-2.2); Alkaline Phosphatase 74 U/L (46-116); Anion Gap 8 (7-16); Aspartate Amino Transferase 18 U/L (0-34); BUN/Creatinine Ratio 29 Ratio (12-20); Bilirubin,Total 0.3 mg/dL (0.3-1.2); Blood Urea Nitrogen 26 mg/dL (9-23); Calcium 8.3 mg/dL (8.3-10.6); Calcium (Corrected) 8.7 mg/dL (8.5-10.1); Carbon Dioxide 29.8 mMol/L (20.0-31.0); Chloride 100 mMol/L (98-107); Creatinine (Component) 0.9 mg/dL (0.6-1.3); Estimated Creatinine Clearance 78.8 mL/min (>60); Globulin 3.3 gm/dL (2.3-3.5); Glucose 126 mg/dL (74-106); Magnesium 2.3 mg/dL (1.6-2.6); Osmolality,Calculated 282 (275-295); Phosphorous 3.5 mg/dL (2.4-5.1); Potassium 4.8 mMol/L (3.4-5.1); Sodium 138 mMol/L (136-145); Total Protein 6.8 gm/dL (5.7-8.2); eGFR > 60 See Note
[2025-03-05 06:42] LABS: Glucose Estimated Average 103 mg/dL (80-131); Hemoglobin A1C 5.2 % Hgb (4.8-6.0)
--- NOTE | 2025-03-05 07:00 | XR_ITS ---
Examination: AP chest single view TECHNIQUE: AP portable semiupright chest single view Exam date and time: March 05, 2025, 0632 hours Comparison March 04, 2025 INDICATIONS: History right pneumothorax post right chest tube placement FINDINGS: Right chest tube satisfactory position Right apical pneumothorax approximately 15% Tracheal tube tip 5 cm above anirudh. The orogastric tube is in the stomach, the tip is below the level of the film Atelectasis right lower lobe Mild enlargement cardiac contour. Moderate vascular congestion. Mild osteopenia IMPRESSION: Right chest tube excellent position Right apical pneumothorax approximately 15%
[2025-03-05] MEDS: FAMOTIDINE INJ 10 MG/ML VIAL 2 ML 20 MG IVP ×2 (08:13→20:21)
[2025-03-05] MEDS: predniSONE 20 MG TABLET 40 MG PO ×2 (08:14→20:21)
[2025-03-05] MEDS: OSELTAMIVIR 75 MG CAPSULE PO ×2 (08:14→20:21)
[2025-03-05] MEDS: AZITHROMYCIN 250 MG TABLET 500 MG PO (08:14)
[2025-03-05] MEDS: NICOTINE PATCH 14 MG/24 HR PATCH.TD24 TOP (08:14)
[2025-03-05] MEDS: EMTRICITABINE 200 MG/TENOFOVIR 300 MG TAB (NON-FORM) 1 TAB PO (08:16)
[2025-03-05] MEDS: RALTEGRAVIR 400 MG TABLET PO ×2 (08:16→20:27)
--- NOTE | 2025-03-05 10:59 | PD.RESPRO ---
Documentation for date of: 03/05/25 Subjective Subjective Interval history: 59-year-old male with past medical history of HIV (diagnosed in 1999) was admitted to the ICU on 03/02/2025 after coming to the ED with complaints of shortness of breath for the past few days. On assessment patient was a very poor historian and was having difficulty breathing and could not complete full sentences. Patient stated that around 10 days ago he started feeling sick, but that he got better and all of a sudden he got worse again. He mentioned that he had fevers, productive cough with some specks of blood, some diarrhea, burning sensation urination, and shortness of breath. Patient mentioned that he moved from [place] a few months ago and that he is new to the area. He mentioned that he had a viral load done a few months ago, but given the patient very poor historian he did not specify how long ago. He stated that he he has seen a physician recently, but not following any HIV specialist. Patient stated that sometimes he misses his doses of Biktarvy. He also mentioned that he stopped smoking 1 month ago and that he used to smoke around 1 pack/month. 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 Patient was admitted to the ICU given increased work of breathing and anticipation for respiratory failure due to exhaustion possibly requiring intubation. 03/03/25: Patient seen and examined in the ICU today. Overnight patient felt like he had subjective fevers however there were no recorded objective fevers. Patient remains tachypneic and tachycardic and his FiO2 is 40% this morning. Repeat chest x-ray showed slightly worsened right-sided pneumonia. Started patient on Bactrim due to his history of noncompliance with his ART. Will wait for beta 1, 3 D glucan results and clinical presentation to improve before we discontinue it. Also pending CD4 count and viral load. Appreciate ID recommendations. Will encourage patient's p.o. intake. 03/04/2025: Patient was seen and examined in the ICU today. Overnight patient remained about the same in terms of his respiratory status with increased work of breathing. He remained tachypneic and tachycardic with an FiO2 of 50% and chest x-ray once again confirm worsening right sided pneumonia. Dr Pierce saw the patient and recommended to continue Tamiflu Rocephin azithromycin and Bactrim as well as starting the patient on prednisone 40 p.o. twice daily. We also started patient on ART. Patient blood cultures came back positive for GPC bacteremia on both bottles and he is adequately covered with the current antibiotics. Ordered repeat blood cultures today. Later in the afternoon patient became suddenly more tachypneic and tachycardic and his FiO2 had to be bumped up to 100% and he remained satting in the low 90s. At bedside patient was agitated and he was threatening to leave AGAINST MEDICAL ADVICE however after further evaluation of his mentation patient was only alert to self and place but not to time and he was stating that his uncle sleeping next-door and he needed to go home to see his mom. Due to patient's increased work of breathing the decision was made to sedate and intubate patient. Postextubation chest x-ray revealed 90% right sided pneumothorax that did not seem to be under tension. Subsequently a chest tube was inserted on the right side which revealed brown-colored pleural fluid. Follow-up x-ray revealed adequate positioning of the chest tube on the right wall but the pneumothorax remained. Will continue to reevaluate patient's pneumothorax daily as well as attempting to wean off of ventilator. Of note: Multiple attempts were done to contact patient's relatives in order to obtain consent for procedures however they were unsuccessful and procedures were done urgently as patient's critical status continued to worsen. 03/05/2025 Overnight, the chest tube output was 250cc. There is continuous bubbles, suggesting a terminal bronchiole leak. The flow and thus I:E ratio was adjusted to minimize the air leak from continous to intermittent bubbles. The preliminary sputum culture grew GPC. The preliminary blood culture sputum grew GPC resmbling staph. We will continue ceftriaxone for GPC pneumonia and bacteremia. We will continue TMP-SMX and prenidsone, anti-virals, and tamiflu. HIV viral load and CD4 count pending. We will start trickle feeds for the patient. Exam Vital Signs Temp Pulse Resp BP Pulse Ox O2 Del Method O2 Flow Rate 97.0 F 86 24 H 114/78 95 Mechanical Ventilation 40 03/05/25 04:00 03/05/25 10:37 03/05/25 06:58 03/05/25 10:37 03/05/25 10:37 03/05/25 05:00 03/04/25 14:35 FiO2 50 03/05/25 10:37 Narrative Exam Constitutional: Intubated, sedated. Arousable. HEENT: NCAT. Respiratory: Decreased breath sounds. Pleural rub right lateral lung. Chest tube inserted in right mid-axillary chest. Cardiac: RRR. Abdomen: BS+. Soft, non-distended, non-tender. No guarding, no rebound. MSK: No B/L LE edema. Skin: Warm, dry, intact. No obvious lesions. Objective Labs 03/08/25 05:21 03/08/25 05:21 Labs: Laboratory Results - last 24 hr 03/02/25 03/04/25 03/04/25 15:42 04:40 18:20 WBC RBC Hgb Hct MCV MCH MCHC RDW Std Deviation Plt Count Neut % (Auto) Lymph % (Auto) [place] % (Auto) Eos % (Auto) Baso % (Auto) Neut # (Auto) Lymph # (Auto) [place] # (Auto) Eos # (Auto) Baso # (Auto) Immature Gran # (Auto) Absolute Nucleated RBC Immature Gran % Nucleated RBC % Puncture Site ABG pH ABG pCO2 ABG pO2 ABG HCO3 ABG O2 Saturation ABG Base Excess FiO2 Sodium Potassium Chloride Carbon Dioxide Anion Gap BUN Creatinine Estim Creat Clear Calc eGFR BUN/Creatinine Ratio Glucose Estimated Ave Glu mg/dL Hemoglobin A1c Calculated Osmolality Calcium Corrected Calcium Phosphorus Magnesium Total Bilirubin AST ALT Alkaline Phosphatase Lactate Dehydrogenase 249 H Total Protein Albumin Globulin Albumin/Globulin Ratio Pleural Color Straw Pleural Appearance Cloudy Pleural WBC 93281 Pleural RBC 9000 Pleural Polynuclear WBC 82 Pleural Mononuclear WBC 18 Pleural Total Protein 4.6 Pleural LDH > 4500 Pleural Glucose 8 Pleural Amylase 105 Coccidioides IgG Ab Negative 03/04/25 03/05/25 03/05/25 19:00 04:10 05:06 WBC 9.5 RBC 4.14 L Hgb 13.6 Hct 40.5 L MCV 98 MCH 32.9 MCHC 33.6 RDW Std Deviation 48.8 H Plt Count 200 D Neut % (Auto) 87 H Lymph % (Auto) 5 L [place] % (Auto) 6 Eos % (Auto) 0 Baso % (Auto) 0 Neut # (Auto) 8.2 H Lymph # (Auto) 0.5 L [place] # (Auto) 0.5 Eos # (Auto) 0.0 Baso # (Auto) 0.0 Immature Gran # (Auto) 0.15 H Absolute Nucleated RBC 0.00 Immature Gran % 2 H Nucleated RBC % 0 Puncture Site Left Radial Left Radial ABG pH 7.29 L D 7.34 L ABG pCO2 62 H D 60 H ABG pO2 104 177 H D ABG HCO3 30 H 32 H ABG O2 Saturation 97 100 H ABG Base Excess 2 5 H FiO2 100 100 Sodium 138 Potassium 4.8 D Chloride 100 Carbon Dioxide 29.8 Anion Gap 8 BUN 26 H Creatinine 0.9 Estim Creat Clear Calc 78.8 eGFR > 60 BUN/Creatinine Ratio 29 H Glucose [address] Glu mg/dL 103 Hemoglobin A1c 5.2 Calculated Osmolality 282 Calcium 8.3 Corrected Calcium 8.7 Phosphorus 3.5 Magnesium 2.3 Total Bilirubin 0.3 AST 18 ALT 12 Alkaline Phosphatase 74 Lactate Dehydrogenase Total Protein 6.8 Albumin 3.5 Globulin 3.3 Albumin/Globulin Ratio 1.1 L Pleural Color Pleural Appearance Pleural WBC Pleural RBC Pleural Polynuclear WBC Pleural Mononuclear WBC Pleural Total Protein Pleural LDH Pleural Glucose Pleural Amylase Coccidioides IgG Ab ABG Interpretation ABG results: 03/02/25 03/02/25 03/03/25 11:30 15:31 19:58 ABG pH 7.39 7.45 ABG pCO2 51 H 45 ABG pO2 90 67 L D ABG HCO3 30 H 31 H ABG O2 Saturation 96 93 ABG Base Excess 4 H 6 H VBG pH 7.46 VBG pCO2 41 VBG pO2 70 H VBG Base Excess 5 H 03/04/25 03/04/25 03/05/25 04:24 19:00 04:10 ABG pH 7.49 H 7.29 L D 7.34 L ABG pCO2 38 62 H D 60 H ABG pO2 103 D 104 177 H D ABG HCO3 29 H 30 H 32 H ABG O2 Saturation 97 97 100 H ABG Base Excess 5 H 2 5 H VBG pH VBG pCO2 VBG pO2 VBG Base Excess Quality Measures Quality Measures VTE prophylaxis Assessment & Plan Assessment Current Active Medications: Generic Name Dose Route Start Last Admin Trade Name Freq PRN Reason Stop Dose Admin Acetaminophen 650 mg 03/02/25 14:53 03/02/25 16:38 Acetaminophen 325 Mg Tablet PO 04/01/25 14:52 650 mg Q6H PRN Administration pain and Fever >100.4 Albuterol/Ipratropium 3 ml 03/04/25 19:00 03/05/25 07:47 Albuterol/Ipratropium (Duoneb) Rt [place] 3 Ml Nebu INH 04/03/25 18:59 Not Given Q6HRRT ELEANOR Albuterol/Ipratropium 3 ml 03/04/25 13:25 03/04/25 14:34 Albuterol/Ipratropium (Duoneb) Rt [place] 3 Ml Nebu INH 04/03/25 13:24 3 ml Q2HR PRN Administration SHORTNESS OF BREATH OR WHEEZE Azithromycin 500 mg 03/05/25 09:00 03/05/25 08:14 Azithromycin 250 Mg Tablet PO 03/05/25 12:00 500 mg QDAY ELEANOR Administration Emtricitabine/Tenofovir 1 tab 03/04/25 13:15 03/05/25 08:16 Emtricitabine 200 Mg/Tenofovir 300 Mg Tab (Non-Form) PO 03/11/25 13:14 1 tab QDAY ELEANOR Administration Famotidine 20 mg 03/05/25 09:00 03/05/25 08:13 Famotidine Inj 10 Mg/Ml Vial 2 Ml IVP 04/04/25 08:59 20 mg BID ELEANOR Administration Heparin Sodium (Porcine) 5,000 unit 03/02/25 22:00 03/05/25 05:07 Heparin Sod Inj 5000 Unit/Ml Vial SC 03/16/25 21:59 5,000 unit Q8HR ELEANOR Administration Ceftriaxone Sodium/Dextrose 1,000 mg in 50 mls @ 100 mls/hr 03/02/25 15:00 03/04/25 14:36 Rocephin/D5w 1gm Iv Premix IV 03/09/25 14:59 100 mls/hr Q24H ELEANOR Administration Propofol 1,000 mg in 100 mls @ 2.133 mls/hr 03/04/25 23:27 03/05/25 07:00 Diprivan Ivpb IV 04/03/25 16:01 15 mcg/kg/min .Q24H PRN 6.399 mls/hr PER PROTOCOL Titration Protocol 5 MCG/KG/MIN Fentanyl Citrate 2,500 mcg in 250 mls @ 2.5 mls/hr 03/04/25 23:27 03/05/25 07:00 Sublimaze Inj 2,500 Mcg/250 Ml Bag IV 03/09/25 16:01 75 mcg/hr .Q24H PRN 7.5 mls/hr PER PROTOCOL Titration Protocol 25 MCG/HR Labetalol HCl 5 mg 03/02/25 15:42 03/04/25 08:57 Labetalol Inj 5 Mg/Ml Vial 20 Ml IVP 04/01/25 15:41 5 mg Q6HR PRN Administration SBP >170 and hold if HR<70 Nicotine 14 mg 03/04/25 13:30 03/05/25 08:14 Nicotine Patch 14 Mg/24 Hr Patch.Td24 TOP 04/03/25 13:29 14 mg QDAY ELEANOR Administration Ondansetron HCl 4 mg 03/02/25 14:53 Ondansetron Inj 2 Mg/Ml Inj 2 Ml IV 04/01/25 14:52 Q6H PRN NAUSEA OR VOMITING Protocol Oseltamivir Phosphate 75 mg 03/02/25 21:30 03/05/25 08:14 Oseltamivir 75 Mg Capsule PO 03/09/25 21:29 75 mg BID ELEANOR Administration Prednisone 40 mg 03/04/25 21:00 03/05/25 08:14 Prednisone 20 Mg Tablet PO 03/11/25 10:49 40 mg BID ELEANOR Administration Raltegravir 400 mg 03/04/25 21:00 03/05/25 08:16 Raltegravir 400 Mg Tablet PO 03/11/25 20:59 400 mg BID ELEANOR Administration Sodium Chloride 3 ml 03/02/25 14:11 03/02/25 14:32 Sodium Chloride Rt [place] 0.9% 3 Ml Nebu INH 04/01/25 14:10 3 ml PRN PRN Administration SOLN Trimethoprim/Sulfamethoxazole 3 tab 03/03/25 14:00 03/05/25 05:07 Trimethoprim/Sulfa 160/800 Ds Tablet PO 03/10/25 13:59 3 tab TID ELEANOR Administration Plan 59-year-old male with past medical history of HIV (diagnosed in 1999) was admitted to the ICU on 03/02/2025 for acute hypoxic respiratory failure secondary to community-acquired pneumonia and sepsis. 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: #Acute encephalopathy Patient is currently sedated for ventilator synchrony SAT as tolerated CVS: #Hypertension Given patient's sepsis at this time we will defer from starting any antihypertensive medication for now - Labetolol prn Respiratory: #Acute hypoxic respiratory failure secondary to GPC pneumonia, Influenza and R pneumothorax Cocci, RSV negative - Continue IV antibiotics, see ID section - Daily ABG #Right-sided pneumothorax s/p chest tube Patient's respiratory failure worsened despite adequate medical management and he was subsequently intubated for airway protection and was found to have a right sided 90% pneumothorax. Chest tube 03/04 inserted on the right side which drained brown-colored pleural fluid which was sent for cytology Bronchoscopy 03/04 showed nectrotic mucous plug at right bronchus Pleural fluid exudative with extremely high LDH and amylase Plan: - Daily CXR - Continue chest tube, once output <200 in 24 hour period and pneumothorax resolves can plan for removal - Follow up on - Monitor air leak Renal: #Lactic acidosis?resolved #Hypoosmolar hyponatremia?resolved GI: #Diarrhea?resolved Nutrition: start trickle feeds - Dietary consulted Endo: No active disease Heme: #Leukocytosis, resolved ID: #Sepsis due to GPC pneumonia and bacteremia, influenza A Sputum culture grew GPC; blood culture preliminary grew GPC resembling staph - Discontinued azithromcyin - continue Rocephin, Tamiflu (03/02-03/06) - Follow up pleural, sputum culture - Repeat cultures pending - Echo to screen for vegetations #Hx of HIV Patient is on Biktarvy for HIV, but does state he missed some doses - CD4 count, HIV viral load pending - Continue on Bactrim and prednisone - Continue ART with raltegravir and entricitabine and tenofovir - ID Dr. Pierce following Hospital Maintenance: Dispo: ICU for acute hypoxic respiratory failure secondary to pneumonia, pneumothorax Diet: N.p.o.; starting tube feeds DVT ppx: Heparin subcu GI ppx: pepcid IV lines: PIV, R chest tube, ET tube, OG tube Code status: Full code I have reviewed and discussed the patient's care with my attending, Dr. Oracio Thorne MD PGY-3 Attending Provider Attestation/Addendum Patient seen and examined with above resident, Cara Thorne MD. I agree with the findings, assessment, and plan of care as documented except for any differences below. Patient continues to remain stable on lung protective ventilator settings. The pneumothorax has significantly improved though there is still a apical component despite appropriate chest tube placement. He remains on continuous suction at this point. Afebrile now. Adequate coverage for potential etiologies superimposed on his influenza and pneumonia. Bacterial etiology most likely given presence of bilateral pleural fluid after chest tube placement as well as brownish output. BAL suspect for staph infection. Patient remains on Bactrim given that he does have MRSA on screening. Patient's Bactrim also adequate for PJP pneumonia and we are awaiting a Fungitell to exclude presence of this in the setting of his HIV and possible AIDS. Patient notably was not necessarily compliant with his ART therapy. We will check with pharmacy what is available and we will initiate based on that. CD4 testing as well as HIV viral load is pending as per ID yesterday. Continue to follow cultures to further delineate antibiotic course and regimen. I fear that the pleural cavity may also be infected and now have confirmed presence of bacteremia. Patient Was at Bedside Today, I Did Update Him on Current Plan of Care and Notable Risks of Morbidity and Mortality Given the Severity of His Acute Illness and His Longstanding Chronic Comorbidities. Total critical care time: I personally spent 40 minutes for review of physiologic parameters, directing plan of care throughout the day, and counseling patient's family at the bedside. This is exclusive of time spent teaching housestaff or performing any separate billable procedures. Patient requires critical care services for acute hypoxic respiratory failure secondary to influenza A pneumonia with probable superimposed bacterial pneumonia with gram-positive organism. Patient continues to be at high risk for further morbidity and mortality warranting close monitoring and care in the intensive care unit.
[2025-03-05] MEDS: fentaNYL 2,500 MCG/250 ML BAG 2,500 MCG/250 ML BAG 12.5 MCG IV (11:00)
--- NOTE | 2025-03-05 13:28 | PC.DIETICIAN ---
NUTRITION PRESCRIPTION: Vital 1.2 AF at 20 ml/hr via OG tube by pump. Advance 10 ml every 8 hrs to goal rate of 60 ml/hr x 24 hrs. If no IV fluids, water flushes of 30 ml/hr (or per MD). Goal rate will be adjusted if propofol is discontinued or infusion rate considerably decreased. Thank you! :)
[2025-03-05] MEDS: cefTRIAXone/D5w 1gm IV premix 1,000 MG/50 ML BAG IV (14:03)
[2025-03-05 17:49] LABS: (1-3)-B-D-glucan* <31 pg/mL
[2025-03-05] MEDS: PROPOFOL 1,000 MG IVPB 1,000 MG/100 ML VIAL 14.931 MG IV (20:34)
[2025-03-05 22:06] LABS: CD19 Percentage 22 % (6-29); CD19, Absolute 53 cells/uL (110-660); CD3 Percentage 71 % (57-85); CD3, Absolute 174 cells/uL (840-3060); CD3-CD16+CD56+ % 5 % (4-25); CD3-CD16+CD56+ (Abs) <20 cells/uL (70-760); CD4 Percentage 23 % (30-61); CD4, Absolute 59 cells/uL (490-1740); CD4/CD8 Ratio 0.48 (0.86-5.00); CD8 Percentage 48 % (12-42); CD8, Absolute 123 cells/uL (180-1170); Toxoplasma Antibody (IgM) <8.00
[2025-03-06] VITALS (30 sets, daily range): BP systolic 110–150; BP diastolic 66–91; PULSE 75–107; RESP 13–25; TEMP 36.2–36.9; O2SAT 91–96; BMI 24.3
[2025-03-06] MEDS: fentaNYL 2,500 MCG/250 ML BAG 2,500 MCG/250 ML BAG 22.5 MCG IV (01:52)
[2025-03-06] MEDS: PROPOFOL 1,000 MG IVPB 1,000 MG/100 ML VIAL 14.931 MG IV (03:43)
[2025-03-06 04:33] LABS: Base Excess 6 (-3-3); HCO3 34 mEq/L (20-26); Inspired Oxygen, FIO2 50 %; O2 Saturation 94 % (91-98); PCO2 60 mmHg (32.0-48.0); PO2 72 mmHg (83-108); pH, Arterial 7.35 (7.35-7.45)
[2025-03-06 05:02] LABS: Allen Test Performed/OK; Puncture Site Right Radial
[2025-03-06] MEDS: TRIMETHOPRIM/SULFA 160/800 DS TABLET 3 TAB PO ×3 (05:21→21:02)
[2025-03-06] MEDS: HEPARIN SOD INJ 5000 UNIT/ML VIAL SC ×3 (05:21→21:02)
--- NOTE | 2025-03-06 06:00 | XR_ITS ---
Examination: AP chest single view TECHNIQUE: AP portable semiupright chest single view Exam date and time: March 06, 2025 0613 hours Comparison March 05, 2025 INDICATIONS: Acute hypoxic respiratory failure, postintubation, extensive pneumonia on earlier chest films with right history chest tube and right pneumothorax FINDINGS: Right chest tube satisfactory position Stable small right apical pneumothorax Endotracheal tube tip 5.7 cm above Elissa. Orogastric tube in the stomach Enlarged cardiac contour again noted with vascular congestion and bilateral pneumonia or ARDS IMPRESSION: Right chest tube satisfactory position with stable small right apical pneumothorax
[2025-03-06 07:15] LABS: Phosphorous 2.9 mg/dL (2.4-5.1)
[2025-03-06 07:35] LABS: Basophils % (Auto) 0 % (0-2.5); Eosinophils % (Auto) 0 % (0-10); Hematocrit 36.9 % (41.0-53.0); Hemoglobin 12.6 g/dL (13.5-16.0); Immature Granulocytes % (Auto) 2 % (0-0); Immature Granulocytes Auto 0.17 Thou/mm3 (0.00-0.00); Lymphocytes # (Auto) 0.5 Thou/mm3 (1.0-4.8); Lymphocytes % (Auto) 5 % (10-50); Mean Corpuscular HGB Conc 34.1 g/dl (31.0-37.0); Mean Corpuscular Hemoglobin 32.6 pg (25.0-35.0); Mean Corpuscular Volume 96 fL (80-100); Monocytes # (Auto) 0.7 Thou/mm3 (0.0-0.8); Monocytes % (Auto) 6 % (0-12); Neutrophils # (Auto) 9.5 Thou/mm3 (1.8-7.7); Neutrophils % (Auto) 87 % (37-80); Nucleated Red Blood Cell % 0 /100 WBC (0); Platelet Count 251 Thou/mm3 (140-440); RDW Standard Deviation 47.6 fL (35.1-43.9); Red Blood Count 3.86 Miln/mm3 (4.50-5.90); White Blood Count 10.9 Thou/mm3 (3.8-10.6)
[2025-03-06 07:48] LABS: Alanine Aminotransferase 8 U/L (10-49); Albumin, Serum 3.3 gm/dL (3.4-4.8); Alkaline Phosphatase 72 U/L (46-116); Anion Gap 6 (7-16); Aspartate Amino Transferase 11 U/L (0-34); BUN/Creatinine Ratio 33 Ratio (12-20); Bilirubin,Total 0.2 mg/dL (0.3-1.2); Blood Urea Nitrogen 26 mg/dL (9-23); Calcium 8.1 mg/dL (8.3-10.6); Calcium (Corrected) 8.7 mg/dL (8.5-10.1); Carbon Dioxide 31.4 mMol/L (20.0-31.0); Chloride 101 mMol/L (98-107); Creatinine (Component) 0.8 mg/dL (0.6-1.3); Estimated Creatinine Clearance 88.6 mL/min (>60); Globulin 3.3 gm/dL (2.3-3.5); Glucose 136 mg/dL (74-106); Magnesium 2.3 mg/dL (1.6-2.6); Osmolality,Calculated 282 (275-295); Potassium 5.2 mMol/L (3.4-5.1); Sodium 138 mMol/L (136-145); Total Protein 6.6 gm/dL (5.7-8.2); eGFR > 60 See Note
[2025-03-06] MEDS: EMTRICITABINE 200 MG/TENOFOVIR 300 MG TAB (NON-FORM) 1 TAB PO (08:10)
[2025-03-06] MEDS: RALTEGRAVIR 400 MG TABLET PO ×2 (08:10→20:03)
[2025-03-06] MEDS: FAMOTIDINE INJ 10 MG/ML VIAL 2 ML 20 MG IVP ×2 (08:11→20:03)
[2025-03-06] MEDS: NICOTINE PATCH 14 MG/24 HR PATCH.TD24 TOP (08:11)
[2025-03-06] MEDS: OSELTAMIVIR 75 MG CAPSULE PO ×2 (08:11→20:03)
[2025-03-06] MEDS: predniSONE 20 MG TABLET 40 MG PO ×2 (08:11→20:02)
[2025-03-06] MEDS: PROPOFOL 1,000 MG IVPB 1,000 MG/100 ML VIAL 19.197 MG IV (09:44)
[2025-03-06] MEDS: fentaNYL 2,500 MCG/250 ML BAG 2,500 MCG/250 ML BAG 30 MCG IV ×2 (12:25→21:35)
[2025-03-06] MEDS: MIDAZOLAM INJ 1 MG/ML VIAL 2 ML 4 MG IV (12:26)
--- NOTE | 2025-03-06 13:39 | PD.RESPRO ---
Documentation for date of: 03/06/25 Subjective Subjective Interval history: 59-year-old male with past medical history of HIV (diagnosed in 1999) was admitted to the ICU on 03/02/2025 after coming to the ED with complaints of shortness of breath for the past few days. On assessment patient was a very poor historian and was having difficulty breathing and could not complete full sentences. Patient stated that around 10 days ago he started feeling sick, but that he got better and all of a sudden he got worse again. He mentioned that he had fevers, productive cough with some specks of blood, some diarrhea, burning sensation urination, and shortness of breath. Patient mentioned that he moved from [place] a few months ago and that he is new to the area. He mentioned that he had a viral load done a few months ago, but given the patient very poor historian he did not specify how long ago. He stated that he he has seen a physician recently, but not following any HIV specialist. Patient stated that sometimes he misses his doses of Biktarvy. He also mentioned that he stopped smoking 1 month ago and that he used to smoke around 1 pack/month. 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 Patient was admitted to the ICU given increased work of breathing and anticipation for respiratory failure due to exhaustion possibly requiring intubation. 03/03/25: Patient seen and examined in the ICU today. Overnight patient felt like he had subjective fevers however there were no recorded objective fevers. Patient remains tachypneic and tachycardic and his FiO2 is 40% this morning. Repeat chest x-ray showed slightly worsened right-sided pneumonia. Started patient on Bactrim due to his history of noncompliance with his ART. Will wait for beta 1, 3 D glucan results and clinical presentation to improve before we discontinue it. Also pending CD4 count and viral load. Appreciate ID recommendations. Will encourage patient's p.o. intake. 03/04/2025: Patient was seen and examined in the ICU today. Overnight patient remained about the same in terms of his respiratory status with increased work of breathing. He remained tachypneic and tachycardic with an FiO2 of 50% and chest x-ray once again confirm worsening right sided pneumonia. Dr Pierce saw the patient and recommended to continue Tamiflu Rocephin azithromycin and Bactrim as well as starting the patient on prednisone 40 p.o. twice daily. We also started patient on ART. Patient blood cultures came back positive for GPC bacteremia on both bottles and he is adequately covered with the current antibiotics. Ordered repeat blood cultures today. Later in the afternoon patient became suddenly more tachypneic and tachycardic and his FiO2 had to be bumped up to 100% and he remained satting in the low 90s. At bedside patient was agitated and he was threatening to leave AGAINST MEDICAL ADVICE however after further evaluation of his mentation patient was only alert to self and place but not to time and he was stating that his uncle sleeping next-door and he needed to go home to see his mom. Due to patient's increased work of breathing the decision was made to sedate and intubate patient. Postextubation chest x-ray revealed 90% right sided pneumothorax that did not seem to be under tension. Subsequently a chest tube was inserted on the right side which revealed brown-colored pleural fluid. Follow-up x-ray revealed adequate positioning of the chest tube on the right wall but the pneumothorax remained. Will continue to reevaluate patient's pneumothorax daily as well as attempting to wean off of ventilator. Of note: Multiple attempts were done to contact patient's relatives in order to obtain consent for procedures however they were unsuccessful and procedures were done urgently as patient's critical status continued to worsen. 03/05/2025: Overnight, the chest tube output was 250cc. There is continuous bubbles, suggesting a terminal bronchiole leak. The flow and thus I:E ratio was adjusted to minimize the air leak from continous to intermittent bubbles. The preliminary sputum culture grew GPC. The preliminary blood culture sputum grew GPC resmbling staph. We will continue ceftriaxone for GPC pneumonia and bacteremia. We will continue TMP-SMX and prenidsone, anti-virals, and tamiflu. HIV viral load and CD4 count pending. We will start trickle feeds for the patient. 03/06/2025: No acute problems overnight. Chest tube output 150cc in the last 24 hours. Persistent leak noted on chest tube. Pneumothorax remains stable. Patient still triggering ventilator. Will increase sedation and optimize ventilator to improve mean airway pressure. Chest tube suctioned decreased from -20 to -10. Cultures and HIV viral load/CD4 count pending. Exam Vital Signs Temp Pulse Resp BP Pulse Ox O2 Del Method O2 Flow Rate 98.0 F 91 24 H 150/91 H 94 L Mechanical Ventilation 50 03/06/25 12:00 03/06/25 12:00 03/05/25 06:58 03/06/25 12:00 03/06/25 12:00 03/06/25 04:00 03/06/25 04:00 FiO2 50 03/06/25 10:15 Narrative Exam Constitutional: Intubated, sedated. Arousable. HEENT: NCAT. Respiratory: Decreased breath sounds. Pleural rub right lateral lung, improved. Chest tube inserted in right mid-axillary chest. Cardiac: RRR. Abdomen: BS+. Soft, non-distended, non-tender. No guarding, no rebound. MSK: No B/L LE edema. Skin: Warm, dry, intact. No obvious lesions. Objective Labs 03/07/25 05:28 03/07/25 05:28 Labs: Laboratory Results - last 24 hr 03/06/25 03/06/25 04:06 06:06 WBC 10.9 H RBC 3.86 L Hgb 12.6 L Hct 36.9 L MCV 96 MCH 32.6 MCHC 34.1 RDW Std Deviation 47.6 H Plt Count 251 D Neut % (Auto) 87 H Lymph % (Auto) 5 L [place] % (Auto) 6 Eos % (Auto) 0 Baso % (Auto) 0 Neut # (Auto) 9.5 H Lymph # (Auto) 0.5 L [place] # (Auto) 0.7 Eos # (Auto) 0.0 Baso # (Auto) 0.0 Immature Gran # (Auto) 0.17 H Absolute Nucleated RBC 0.00 Immature Gran % 2 H Nucleated RBC % 0 Puncture Site Right Radial ABG pH 7.35 ABG pCO2 60 H ABG pO2 72 L D ABG HCO3 34 H ABG O2 Saturation 94 ABG Base Excess 6 H FiO2 50 Sodium 138 Potassium 5.2 H Chloride 101 Carbon Dioxide 31.4 H Anion Gap 6 L BUN 26 H Creatinine 0.8 Estim Creat Clear Calc 88.6 eGFR > 60 BUN/Creatinine Ratio 33 H Glucose 136 H Calculated Osmolality 282 Calcium 8.1 L Corrected Calcium 8.7 Phosphorus 2.9 Magnesium 2.3 Total Bilirubin 0.2 L AST 11 ALT 8 L Alkaline Phosphatase 72 Total Protein 6.6 Albumin 3.3 L Globulin 3.3 Albumin/Globulin Ratio 1.0 L ABG Interpretation ABG results: 03/02/25 03/02/25 03/03/25 11:30 15:31 19:58 ABG pH 7.39 7.45 ABG pCO2 51 H 45 ABG pO2 90 67 L D ABG HCO3 30 H 31 H ABG O2 Saturation 96 93 ABG Base Excess 4 H 6 H VBG pH 7.46 VBG pCO2 41 VBG pO2 70 H VBG Base Excess 5 H 03/04/25 03/04/25 03/05/25 04:24 19:00 04:10 ABG pH 7.49 H 7.29 L D 7.34 L ABG pCO2 38 62 H D 60 H ABG pO2 103 D 104 177 H D ABG HCO3 29 H 30 H 32 H ABG O2 Saturation 97 97 100 H ABG Base Excess 5 H 2 5 H VBG pH VBG pCO2 VBG pO2 VBG Base Excess 03/06/25 04:06 ABG pH 7.35 ABG pCO2 60 H ABG pO2 72 L D ABG HCO3 34 H ABG O2 Saturation 94 ABG Base Excess 6 H VBG pH VBG pCO2 VBG pO2 VBG Base Excess Quality Measures Quality Measures VTE prophylaxis Assessment & Plan Assessment Current Active Medications: Generic Name Dose Route Start Last Admin Trade Name Freq PRN Reason Stop Dose Admin Acetaminophen 650 mg 03/02/25 14:53 03/02/25 16:38 Acetaminophen 325 Mg Tablet PO 04/01/25 14:52 650 mg Q6H PRN Administration pain and Fever >100.4 Albuterol/Ipratropium 3 ml 03/04/25 19:00 03/06/25 08:10 Albuterol/Ipratropium (Duoneb) Rt [place] 3 Ml Nebu INH 04/03/25 18:59 Not Given Q6HRRT ELEANOR Albuterol/Ipratropium 3 ml 03/04/25 13:25 03/04/25 14:34 Albuterol/Ipratropium (Duoneb) Rt [place] 3 Ml Nebu INH 04/03/25 13:24 3 ml Q2HR PRN Administration SHORTNESS OF BREATH OR WHEEZE Emtricitabine/Tenofovir 1 tab 03/04/25 13:15 03/06/25 08:10 Emtricitabine 200 Mg/Tenofovir 300 Mg Tab (Non-Form) PO 03/11/25 13:14 1 tab QDAY ELEANOR Administration Famotidine 20 mg 03/05/25 09:00 03/06/25 08:11 Famotidine Inj 10 Mg/Ml Vial 2 Ml IVP 04/04/25 08:59 20 mg BID ELEANOR Administration Heparin Sodium (Porcine) 5,000 unit 03/02/25 22:00 03/06/25 05:21 Heparin Sod Inj 5000 Unit/Ml Vial SC 03/16/25 21:59 5,000 unit Q8HR ELEANOR Administration Ceftriaxone Sodium/Dextrose 1,000 mg in 50 mls @ 100 mls/hr 03/02/25 15:00 03/05/25 14:03 Rocephin/D5w 1gm Iv Premix IV 03/09/25 14:59 100 mls/hr Q24H ELEANOR Administration Propofol 1,000 mg in 100 mls @ 2.133 mls/hr 03/04/25 23:27 03/06/25 12:00 Diprivan Ivpb IV 04/03/25 16:01 50 mcg/kg/min .Q24H PRN 21.33 mls/hr PER PROTOCOL Titration Protocol 5 MCG/KG/MIN Fentanyl Citrate 2,500 mcg in 250 mls @ 2.5 mls/hr 03/04/25 23:27 03/06/25 12:25 Sublimaze Inj 2,500 Mcg/250 Ml Bag IV 03/09/25 16:01 300 mcg/hr .Q24H PRN 30 mls/hr PER PROTOCOL Administration Protocol 25 MCG/HR Midazolam HCl 100 mg in 100 mls @ 1 mls/hr 03/06/25 13:29 Versed Pf Inj In Ns Premix IV 03/11/25 13:28 .Q24H PRN PER PROTOCOL Protocol 1 MG/HR Labetalol HCl 5 mg 03/02/25 15:42 03/04/25 08:57 Labetalol Inj 5 Mg/Ml Vial 20 Ml IVP 04/01/25 15:41 5 mg Q6HR PRN Administration SBP >170 and hold if HR<70 Nicotine 14 mg 03/04/25 13:30 03/06/25 08:11 Nicotine Patch 14 Mg/24 Hr Patch.Td24 TOP 04/03/25 13:29 14 mg QDAY ELEANOR Administration Ondansetron HCl 4 mg 03/02/25 14:53 Ondansetron Inj 2 Mg/Ml Inj 2 Ml IV 04/01/25 14:52 Q6H PRN NAUSEA OR VOMITING Protocol Oseltamivir Phosphate 75 mg 03/02/25 21:30 03/06/25 08:11 Oseltamivir 75 Mg Capsule PO 03/09/25 21:29 75 mg BID ELEANOR Administration Prednisone 40 mg 03/04/25 21:00 03/06/25 08:11 Prednisone 20 Mg Tablet PO 03/11/25 10:49 40 mg BID ELEANOR Administration Raltegravir 400 mg 03/04/25 21:00 03/06/25 08:10 Raltegravir 400 Mg Tablet PO 03/11/25 20:59 400 mg BID ELEANOR Administration Sodium Chloride 3 ml 03/02/25 14:11 03/02/25 14:32 Sodium Chloride Rt [place] 0.9% 3 Ml Nebu INH 04/01/25 14:10 3 ml PRN PRN Administration SOLN Trimethoprim/Sulfamethoxazole 3 tab 03/03/25 14:00 03/06/25 05:21 Trimethoprim/Sulfa 160/800 Ds Tablet PO 03/10/25 13:59 3 tab TID ELEANOR Administration Plan 59-year-old male with past medical history of HIV (diagnosed in 1999) was admitted to the ICU on 03/02/2025 for acute hypoxic respiratory failure secondary to community-acquired pneumonia and sepsis. RUNNING SPECIALIST: #Acute encephalopathy Patient is currently sedated for ventilator synchrony Versed, propofol, and fentanyl for goal RAAS -3 CVS: #Hypertension - Labetolol prn Respiratory: #Acute hypoxic respiratory failure secondary to GPC pneumonia, Influenza and R pneumothorax Cocci, RSV negative - Continue IV antibiotics, see ID section - Daily ABG #Right-sided pneumothorax s/p chest tube Patient's respiratory failure worsened despite adequate medical management and he was subsequently intubated for airway protection and was found to have a right sided 90% pneumothorax. Chest tube 5/2 inserted on the right side which drained brown-colored pleural fluid which was sent for cytology Bronchoscopy / showed nectrotic mucous plug at right bronchus Pleural fluid exudative with extremely high LDH and amylase Plan: - Daily CXR - Continue chest tube, once output <200 in 24 hour period and pneumothorax resolves can plan for removal - Adjust ventilator for low mean airway pressure - Monitor air leak Renal: #Lactic acidosis?resolved #Hypoosmolar hyponatremia?resolved GI: #Diarrhea?resolved Endo: No active disease Heme: #Leukocytosis, resolved ID: #Sepsis due to GPC pneumonia and bacteremia, influenza A Sputum culture grew GPC; blood culture preliminary grew GPC resembling staph - Discontinued azithromcyin - Continue Rocephin, Tamiflu (03/02-03/06) - Follow up pleural, sputum culture - Repeat cultures pending - Echo to screen for vegetations #Hx of HIV Patient is on Biktarvy for HIV, but does state he missed some doses - CD4 count, HIV viral load pending - Continue on Bactrim and prednisone - Continue ART with raltegravir and entricitabine and tenofovir - ID Dr. Pierce following Hospital Maintenance: Dispo: ICU for acute hypoxic respiratory failure secondary to pneumonia, pneumothorax Diet: N.p.o.; tube feeds DVT ppx: Heparin GI ppx: pepcid IV lines: PIV, R chest tube, ET tube, OG tube Code status: Full code I have reviewed and discussed the patient's care with my attending, Dr. Oracio Thorne MD PGY-3 Attending Provider Attestation/Addendum Patient seen and examined with above resident, Cara Thorne MD. I agree with the findings, assessment, and plan of care as documented except for any differences below. Patient remains hemodynamically stable with appropriate antibiotic coverage for gram-positive bacteremia and pneumonia. Bronchoscopy was done with successful removal of mucous plugging and near complete reexpansion of the right lung. Right base continues to show significant consolidation as the primary source of infectious etiology. Remains on appropriate coverage for PJP pneumonia in the setting of possible AIDS/HIV. Patient has been restarted on antiretroviral therapy as per infectious disease recommendations and based on availability at our center. Patient's renal function remains preserved. Will initiate tube feeds and try to titrate up as tolerated to goal. Nutrition. Patient continues to have trouble with ventilator synchrony though P plateau remains in safe range with appropriate tidal volume. Will optimize sedation with use of Versed drip in conjunction with existing propofol and fentanyl to ensure avoidance of double stacking that could lead to polytrauma as well as barotrauma and worsen ongoing leak. He does have a continuous low-grade leak from the chest tube. Weaning from mechanical ventilation will be paramount with continued reduction/optimization of mean airway pressure to be able to minimize listhesis. I did reduce suction to -10 today to help with this additionally. Patient's uncle was at bedside this morning and was updated by myself. Total critical care time: I personally spent 40 minutes for review of physiologic parameters, directing plan of care throughout the day, and counseling patient's family at bedside. This is exclusive of time spent teaching housestaff performing any separate billable procedures. Patient continues to require critical care services for acute hypoxic respiratory failure secondary to community-acquired pneumonia complicated by pneumothorax. Patient remains at high risk for further morbidity and mortality warranting close monitoring and care only available in the intensive care unit.
[2025-03-06] MEDS: cefTRIAXone/D5w 1gm IV premix 1,000 MG/50 ML BAG IV (14:42)
[2025-03-06] MEDS: PROPOFOL 1,000 MG IVPB 1,000 MG/100 ML VIAL 21.33 MG IV ×3 (14:42→23:39)
[2025-03-06] MEDS: MIDAZOLAM/NS 100 MG IVPB 100 MG/100 ML BAG IV (14:43)
[2025-03-06] MEDS: MIDAZOLAM INJ 1 MG/ML VIAL 2 ML 2 MG IV (16:52)
[2025-03-06 22:07] LABS: Hepatitis A Antibody IgM Non Reactive (Non React); Hepatitis B Core Antibody IgM Non Reactive (Non React); Hepatitis B Surface Antigen Non Reactive (Non React); Hepatitis C Antibody Reactive (Non React)
[2025-03-07] VITALS (39 sets, daily range): BP systolic 91–155; BP diastolic 63–96; PULSE 93–143; RESP 15–23; TEMP 36.3–38; O2SAT 88–98; BMI 24.0
[2025-03-07] MEDS: PROPOFOL 1,000 MG IVPB 1,000 MG/100 ML VIAL 21.33 MG IV ×6 (01:20→23:45)
[2025-03-07] MEDS: MIDAZOLAM/NS 100 MG IVPB 100 MG/100 ML BAG IV ×2 (01:23→15:15)
[2025-03-07] MEDS: fentaNYL 2,500 MCG/250 ML BAG 2,500 MCG/250 ML BAG 30 MCG IV ×3 (01:24→15:15)
[2025-03-07] MEDS: ALBUTEROL/IPRATROPIUM (Duoneb) RT SOL 3 ML NEBU INH ×4 (01:26→18:54)
[2025-03-07 04:36] LABS: Base Excess 4 (-3-3); HCO3 35 mEq/L (20-26); Inspired Oxygen, FIO2 50 %; O2 Saturation 93 % (91-98); PCO2 88 mmHg (32.0-48.0); PO2 75 mmHg (83-108); pH, Arterial 7.21 (7.35-7.45)
[2025-03-07 04:38] LABS: Allen Test Performed/OK; Puncture Site Right Radial
[2025-03-07] MEDS: TRIMETHOPRIM/SULFA 160/800 DS TABLET 3 TAB PO (05:41)
[2025-03-07] MEDS: HEPARIN SOD INJ 5000 UNIT/ML VIAL SC ×3 (05:41→21:53)
--- NOTE | 2025-03-07 06:00 | XR_ITS ---
Examination: AP chest single view TECHNIQUE: AP portable upright chest single view Exam date and time: March 07, 2025, 0505 hours Comparison March 06, 2025 INDICATIONS: History right pneumothorax post right chest tube placement FINDINGS: Right chest tube remains in satisfactory position Pneumothorax inferior to the right lung, less than 20% Endotracheal tube tip 5.9 cm above Elissa The orogastric tube is in the stomach, the tip is below level of the film Diffuse right lung opacity consistent with pneumonia and atelectasis Mild prominence left ventricle IMPRESSION: Right chest tube remains in satisfactory position Pneumothorax inferior to the right lung, less than 20%
[2025-03-07 06:04] LABS: Base Excess 5 (-3-3); HCO3 36 mEq/L (20-26); Inspired Oxygen, FIO2 50 %; O2 Saturation 94 % (91-98); PCO2 86 mmHg (32.0-48.0); PO2 78 mmHg (83-108); pH, Arterial 7.23 (7.35-7.45)
[2025-03-07 06:12] LABS: Allen Test Performed/OK; Puncture Site Left Radial
[2025-03-07 06:26] LABS: Basophils % (Auto) 0 % (0-2.5); Eosinophils % (Auto) 0 % (0-10); Hematocrit 40.7 % (41.0-53.0); Hemoglobin 13.3 g/dL (13.5-16.0); Immature Granulocytes % (Auto) 2 % (0-0); Immature Granulocytes Auto 0.29 Thou/mm3 (0.00-0.00); Lymphocytes # (Auto) 0.4 Thou/mm3 (1.0-4.8); Lymphocytes % (Auto) 3 % (10-50); Mean Corpuscular HGB Conc 32.7 g/dl (31.0-37.0); Mean Corpuscular Hemoglobin 32.6 pg (25.0-35.0); Mean Corpuscular Volume 100 fL (80-100); Monocytes # (Auto) 0.5 Thou/mm3 (0.0-0.8); Monocytes % (Auto) 4 % (0-12); Neutrophils # (Auto) 11.4 Thou/mm3 (1.8-7.7); Neutrophils % (Auto) 90 % (37-80); Nucleated Red Blood Cell % 0 /100 WBC (0); Platelet Count 273 Thou/mm3 (140-440); RDW Standard Deviation 50.1 fL (35.1-43.9); Red Blood Count 4.08 Miln/mm3 (4.50-5.90); White Blood Count 12.6 Thou/mm3 (3.8-10.6)
[2025-03-07 06:56] LABS: Alanine Aminotransferase 9 U/L (10-49); Albumin, Serum 3.4 gm/dL (3.4-4.8); Albumin/Globulin Ratio 0.9 (1.2-2.2); Alkaline Phosphatase 83 U/L (46-116); Anion Gap 4 (7-16); Aspartate Amino Transferase 14 U/L (0-34); BUN/Creatinine Ratio 26 Ratio (12-20); Bilirubin,Total < 0.2 mg/dL (0.3-1.2); Blood Urea Nitrogen 23 mg/dL (9-23); Calcium 8.1 mg/dL (8.3-10.6); Calcium (Corrected) 8.6 mg/dL (8.5-10.1); Carbon Dioxide 33.9 mMol/L (20.0-31.0); Chloride 99 mMol/L (98-107); Creatinine (Component) 0.9 mg/dL (0.6-1.3); Estimated Creatinine Clearance 78.8 mL/min (>60); Globulin 3.6 gm/dL (2.3-3.5); Glucose 152 mg/dL (74-106); Magnesium 2.2 mg/dL (1.6-2.6); Osmolality,Calculated 280 (275-295); Phosphorous 3.5 mg/dL (2.4-5.1); Sodium 137 mMol/L (136-145); eGFR > 60 See Note
[2025-03-07 07:01] LABS: Potassium 6.4 mMol/L (3.4-5.1)
[2025-03-07] MEDS: INSULIN HUM REGULAR 1 UNIT/0.01 ML (PER UNIT) 10 UNIT IV ×2 (07:17→12:06)
[2025-03-07] MEDS: DEXTROSE 50%-WATER INJ 50 ML SYRINGE IV ×2 (07:22→12:08)
[2025-03-07] MEDS: CALCIUM GLUC/NS 1000MG IVPB 1,000 MG/50 ML BAG 50 MG IV ×2 (07:23→12:08)
[2025-03-07 07:24] LABS: Interpretation NEGATIVE
[2025-03-07 07:25] LABS: Lymphocytes, Absolute 245 cells/uL (850-3900); Toxoplasma Antibody (IgG) <7.20
[2025-03-07] MEDS: OSELTAMIVIR 75 MG CAPSULE PO (08:30)
[2025-03-07] MEDS: FAMOTIDINE INJ 10 MG/ML VIAL 2 ML 20 MG IVP ×2 (08:30→21:53)
[2025-03-07] MEDS: predniSONE 20 MG TABLET 40 MG PO (08:30)
[2025-03-07] MEDS: EMTRICITABINE 200 MG/TENOFOVIR 300 MG TAB (NON-FORM) 1 TAB PO ×2 (08:30→11:15)
[2025-03-07 08:31] LABS: HIV-1/2 Rapid Confirmation See Cmnt-Confrm=Pos
[2025-03-07] MEDS: NICOTINE PATCH 14 MG/24 HR PATCH.TD24 TOP (08:31)
[2025-03-07] MEDS: RALTEGRAVIR 400 MG TABLET PO (08:32)
--- NOTE | 2025-03-07 09:28 | ESPR_ITS ---
Subjective Subjective Interval history: on only 1 agent for hiv. not appropriate. tamiflu duration has been at least 5 d. staph in sputum noted. intubated and bal noted. with staph. no pjp. Exam Vital Signs Temp Pulse Resp BP Pulse Ox O2 Del Method O2 Flow Rate 98.7 F 104 H 20 134/84 H 97 Mechanical Ventilation 50 03/07/25 07:00 03/07/25 07:00 03/07/25 06:50 03/07/25 07:00 03/07/25 07:00 03/07/25 04:00 03/06/25 04:00 FiO2 50 03/07/25 06:50 Objective - Internal Medicine Labs 03/07/25 05:28 03/07/25 05:28 Labs: Laboratory Results - last 24 hr 03/02/25 03/03/25 03/05/25 15:42 04:25 05:06 WBC RBC Hgb Hct MCV MCH MCHC RDW Std Deviation Plt Count Neut % (Auto) Lymph % (Auto) [place] % (Auto) Eos % (Auto) Baso % (Auto) Neut # (Auto) Lymph # (Auto) [place] # (Auto) Eos # (Auto) Baso # (Auto) Immature Gran # (Auto) Absolute Nucleated RBC Immature Gran % Nucleated RBC % Total Abs Lymphocytes 245 L Puncture Site ABG pH ABG pCO2 ABG pO2 ABG HCO3 ABG O2 Saturation ABG Base Excess FiO2 Sodium Potassium Chloride Carbon Dioxide Anion Gap BUN Creatinine Estim Creat Clear Calc eGFR BUN/Creatinine Ratio Glucose Calculated Osmolality Calcium Corrected Calcium Phosphorus Magnesium Total Bilirubin AST ALT Alkaline Phosphatase Total Protein Albumin Globulin Albumin/Globulin Ratio Lymphocyte Subset Cmmnt TNP % CD3 Cells 71 Absolute CD3 Count 174 L % CD3-/CD16+/CD56+ 5 Abs CD3-/CD16+/CD56+ <20 L % CD4 Cells 23 L Absolute CD4 Count 59 L CD4/CD8 Ratio 0.48 L % CD8 Cells 48 H Absolute CD8 Count 123 L % CD19 Cells 22 Absolute CD19 Count 53 L Hepatitis A IgM Ab Non Reactive Hep Bs Antigen Non Reactive Hep B Core IgM Ab Non Reactive Hepatitis C Antibody Reactive A HIV (1&2) Ab Confirm See Cmnt-Confrm=Pos A Toxoplasma IgG Ab <7.20 Toxoplasma IgM Ab <8.00 Toxoplasma Ab Interp SEE NOTE Beta-(1,3)-D-Glucan <31 B-(1,3)-D-Glucan Intrp NEGATIVE Misc Test Result See Sep Rpt 03/07/25 03/07/25 03/07/25 04:13 05:28 05:55 WBC 12.6 H RBC 4.08 L Hgb 13.3 L Hct 40.7 L MCV 100 MCH 32.6 MCHC 32.7 RDW Std Deviation 50.1 H Plt Count 273 Neut % (Auto) 90 H Lymph % (Auto) 3 L [place] % (Auto) 4 Eos % (Auto) 0 Baso % (Auto) 0 Neut # (Auto) 11.4 H Lymph # (Auto) 0.4 L [place] # (Auto) 0.5 Eos # (Auto) 0.0 Baso # (Auto) 0.0 Immature Gran # (Auto) 0.29 H Absolute Nucleated RBC 0.00 Immature Gran % 2 H Nucleated RBC % 0 Total Abs Lymphocytes Puncture Site Right Radial Left Radial ABG pH 7.21 L D 7.23 L ABG pCO2 88 H* D 86 H* ABG pO2 75 L 78 L ABG HCO3 35 H 36 H ABG O2 Saturation 93 94 ABG Base Excess 4 H 5 H FiO2 50 50 Sodium 137 Potassium 6.4 H* D Chloride 99 Carbon Dioxide 33.9 H Anion Gap 4 L BUN 23 Creatinine 0.9 Estim Creat Clear Calc 78.8 eGFR > 60 BUN/Creatinine Ratio 26 H Glucose 152 H Calculated Osmolality 280 Calcium 8.1 L Corrected Calcium 8.6 Phosphorus 3.5 Magnesium 2.2 Total Bilirubin < 0.2 L AST 14 ALT 9 L Alkaline Phosphatase 83 Total Protein 7.0 Albumin 3.4 Globulin 3.6 H Albumin/Globulin Ratio 0.9 L Lymphocyte Subset Cmmnt % CD3 Cells Absolute CD3 Count % CD3-/CD16+/CD56+ Abs CD3-/CD16+/CD56+ % CD4 Cells Absolute CD4 Count CD4/CD8 Ratio % CD8 Cells Absolute CD8 Count % CD19 Cells Absolute CD19 Count Hepatitis A IgM Ab Hep Bs Antigen Hep B Core IgM Ab Hepatitis C Antibody HIV (1&2) Ab Confirm Toxoplasma IgG Ab Toxoplasma IgM Ab Toxoplasma Ab Interp Beta-(1,3)-D-Glucan B-(1,3)-D-Glucan Intrp Misc Test Result ABG Interpretation ABG results: 03/02/25 03/02/25 03/03/25 11:30 15:31 19:58 ABG pH 7.39 7.45 ABG pCO2 51 H 45 ABG pO2 90 67 L D ABG HCO3 30 H 31 H ABG O2 Saturation 96 93 ABG Base Excess 4 H 6 H VBG pH 7.46 VBG pCO2 41 VBG pO2 70 H VBG Base Excess 5 H 03/04/25 03/04/25 03/05/25 04:24 19:00 04:10 ABG pH 7.49 H 7.29 L D 7.34 L ABG pCO2 38 62 H D 60 H ABG pO2 103 D 104 177 H D ABG HCO3 29 H 30 H 32 H ABG O2 Saturation 97 97 100 H ABG Base Excess 5 H 2 5 H VBG pH VBG pCO2 VBG pO2 VBG Base Excess 03/06/25 03/07/25 03/07/25 04:06 04:13 05:55 ABG pH 7.35 7.21 L D 7.23 L ABG pCO2 60 H 88 H* D 86 H* ABG pO2 72 L D 75 L 78 L ABG HCO3 34 H 35 H 36 H ABG O2 Saturation 94 93 94 ABG Base Excess 6 H 4 H 5 H VBG pH VBG pCO2 VBG pO2 VBG Base Excess Assessment & Plan A&P Narrative hiv by report flu a by rx. I can not find the test though. if you find it. be sure every one sees it. usual rx for flu is tamiflu bid for 5days possible pjp infection, LDH high but has lobar pneumonia on cxr, but had persistent sx. confusion with pending labs and was here in ED in 2022 hypoxemia with pneumonia and tachypnea as noted pneumonia, rll. baseline labs pending. looks like he maybe diabetic. was in ED in 2022 so maybe he has been here longer than stated he was released from incarceration so place of aquisition also not yet known. along with sexual preference current empiric rx ok for now if hypoxic, addition of prednisone ok pending more data high ldh and ongoing hypoxemia are what we have at the moment. prognosis guarded. ok to start hiv rx with whatever we have on formulary , they are all po ok to just leave on bactrim and not add the vanco as bc were done in ED and are now old . so germ may be a contaminant even if both bc pos as they were likely done at the same time, even though they are listed as 5 mins apart Time Spent With Patient Time: Total time spent is greater than 50% in coordination of care (as documented) at patient's floor/unit and/or counseling patient:
--- NOTE | 2025-03-07 09:28 | PD.RESPRO ---
Documentation for date of: 03/07/25 Subjective Subjective Interval history: 59-year-old male with past medical history of HIV (diagnosed in 1999) was admitted to the ICU on 03/02/2025 after coming to the ED with complaints of shortness of breath for the past few days. On assessment patient was a very poor historian and was having difficulty breathing and could not complete full sentences. Patient stated that around 10 days ago he started feeling sick, but that he got better and all of a sudden he got worse again. He mentioned that he had fevers, productive cough with some specks of blood, some diarrhea, burning sensation urination, and shortness of breath. Patient mentioned that he moved from [place] a few months ago and that he is new to the area. He mentioned that he had a viral load done a few months ago, but given the patient very poor historian he did not specify how long ago. He stated that he he has seen a physician recently, but not following any HIV specialist. Patient stated that sometimes he misses his doses of Biktarvy. He also mentioned that he stopped smoking 1 month ago and that he used to smoke around 1 pack/month. 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 Patient was admitted to the ICU given increased work of breathing and anticipation for respiratory failure due to exhaustion possibly requiring intubation. 03/03/25: Patient seen and examined in the ICU today. Overnight patient felt like he had subjective fevers however there were no recorded objective fevers. Patient remains tachypneic and tachycardic and his FiO2 is 40% this morning. Repeat chest x-ray showed slightly worsened right-sided pneumonia. Started patient on Bactrim due to his history of noncompliance with his ART. Will wait for beta 1, 3 D glucan results and clinical presentation to improve before we discontinue it. Also pending CD4 count and viral load. Appreciate ID recommendations. Will encourage patient's p.o. intake. 03/04/2025: Patient was seen and examined in the ICU today. Overnight patient remained about the same in terms of his respiratory status with increased work of breathing. He remained tachypneic and tachycardic with an FiO2 of 50% and chest x-ray once again confirm worsening right sided pneumonia. Dr Pierce saw the patient and recommended to continue Tamiflu Rocephin azithromycin and Bactrim as well as starting the patient on prednisone 40 p.o. twice daily. We also started patient on ART. Patient blood cultures came back positive for GPC bacteremia on both bottles and he is adequately covered with the current antibiotics. Ordered repeat blood cultures today. Later in the afternoon patient became suddenly more tachypneic and tachycardic and his FiO2 had to be bumped up to 100% and he remained satting in the low 90s. At bedside patient was agitated and he was threatening to leave AGAINST MEDICAL ADVICE however after further evaluation of his mentation patient was only alert to self and place but not to time and he was stating that his uncle sleeping next-door and he needed to go home to see his mom. Due to patient's increased work of breathing the decision was made to sedate and intubate patient. Postextubation chest x-ray revealed 90% right sided pneumothorax that did not seem to be under tension. Subsequently a chest tube was inserted on the right side which revealed brown-colored pleural fluid. Follow-up x-ray revealed adequate positioning of the chest tube on the right wall but the pneumothorax remained. Will continue to reevaluate patient's pneumothorax daily as well as attempting to wean off of ventilator. Of note: Multiple attempts were done to contact patient's relatives in order to obtain consent for procedures however they were unsuccessful and procedures were done urgently as patient's critical status continued to worsen. 03/05/2025: Overnight, the chest tube output was 250cc. There is continuous bubbles, suggesting a terminal bronchiole leak. The flow and thus I:E ratio was adjusted to minimize the air leak from continous to intermittent bubbles. The preliminary sputum culture grew GPC. The preliminary blood culture sputum grew GPC resmbling staph. We will continue ceftriaxone for GPC pneumonia and bacteremia. We will continue TMP-SMX and prenidsone, anti-virals, and tamiflu. HIV viral load and CD4 count pending. We will start trickle feeds for the patient. 03/06/2025: No acute problems overnight. Chest tube output 150cc in the last 24 hours. Persistent leak noted on chest tube. Pneumothorax remains stable. Patient still triggering ventilator. Will increase sedation and optimize ventilator to improve mean airway pressure. Chest tube suctioned decreased from -20 to -10. Cultures and HIV viral load/CD4 count pending. 03/07/2025: Overnight, patient was tachycardic. Chest tube output 15cc. ABG shows respiratory acidosis with permissive hypercapnia. Planned for bronchoscopy today however patient was hyperkalemic and tachycardic. Patient was given calcium gluconate to stabilize the cardiac membrane, and insulin and kayexelate. The ventilator was adjusted to blow off acidosis that may be contributing to the hyperkalemia. Tachycardia improved, potassium improved. CD4 count returned at 59. Sputum, blood, and pleural cultures growing Staph aureas. Plan for bronchoscopy tomorrow if needed. Exam Vital Signs Temp Pulse Resp BP Pulse Ox O2 Del Method O2 Flow Rate 98.7 F 104 H 20 134/84 H 97 Mechanical Ventilation 50 03/07/25 07:00 03/07/25 07:00 03/07/25 06:50 03/07/25 07:00 03/07/25 07:00 03/07/25 04:00 03/06/25 04:00 FiO2 50 03/07/25 06:50 Narrative Exam Constitutional: Intubated, sedated. HEENT: NCAT. Respiratory: Decreased breath sounds. Pleural rub right lateral lung, improved. Chest tube inserted in right mid-axillary chest. Cardiac: Tachycardic. Abdomen: BS+. Soft, non-distended, non-tender. No guarding, no rebound. MSK: No B/L LE edema. Skin: Warm, dry, intact. No obvious lesions. Objective Labs 03/08/25 05:21 03/08/25 05:21 Labs: Laboratory Results - last 24 hr 03/02/25 03/03/25 03/05/25 15:42 04:25 05:06 WBC RBC Hgb Hct MCV MCH MCHC RDW Std Deviation Plt Count Neut % (Auto) Lymph % (Auto) [place] % (Auto) Eos % (Auto) Baso % (Auto) Neut # (Auto) Lymph # (Auto) [place] # (Auto) Eos # (Auto) Baso # (Auto) Immature Gran # (Auto) Absolute Nucleated RBC Immature Gran % Nucleated RBC % Total Abs Lymphocytes 245 L Puncture Site ABG pH ABG pCO2 ABG pO2 ABG HCO3 ABG O2 Saturation ABG Base Excess FiO2 Sodium Potassium Chloride Carbon Dioxide Anion Gap BUN Creatinine Estim Creat Clear Calc eGFR BUN/Creatinine Ratio Glucose Calculated Osmolality Calcium Corrected Calcium Phosphorus Magnesium Total Bilirubin AST ALT Alkaline Phosphatase Total Protein Albumin Globulin Albumin/Globulin Ratio Lymphocyte Subset Cmmnt TNP % CD3 Cells 71 Absolute CD3 Count 174 L % CD3-/CD16+/CD56+ 5 Abs CD3-/CD16+/CD56+ <20 L % CD4 Cells 23 L Absolute CD4 Count 59 L CD4/CD8 Ratio 0.48 L % CD8 Cells 48 H Absolute CD8 Count 123 L % CD19 Cells 22 Absolute CD19 Count 53 L Hepatitis A IgM Ab Non Reactive Hep Bs Antigen Non Reactive Hep B Core IgM Ab Non Reactive Hepatitis C Antibody Reactive A HIV (1&2) Ab Confirm See Cmnt-Confrm=Pos A Toxoplasma IgG Ab <7.20 Toxoplasma IgM Ab <8.00 Toxoplasma Ab Interp SEE NOTE Beta-(1,3)-D-Glucan <31 B-(1,3)-D-Glucan Intrp NEGATIVE Misc Test Result See Jul Rpt 03/07/25 03/07/25 03/07/25 04:13 05:28 05:55 WBC 12.6 H RBC 4.08 L Hgb 13.3 L Hct 40.7 L MCV 100 MCH 32.6 MCHC 32.7 RDW Std Deviation 50.1 H Plt Count 273 Neut % (Auto) 90 H Lymph % (Auto) [address] [place] % (Auto) 4 Eos % (Auto) 0 Baso % (Auto) 0 Neut # (Auto) 11.4 H Lymph # (Auto) 0.[address] [place] # (Auto) 0.5 Eos # (Auto) 0.0 Baso # (Auto) 0.0 Immature Gran # (Auto) 0.29 H Absolute Nucleated RBC 0.00 Immature Gran % 2 H Nucleated RBC % 0 Total Abs Lymphocytes Puncture Site Right Radial Left Radial ABG pH 7.21 L D 7.23 L ABG pCO2 88 H* D 86 H* ABG pO2 75 L 78 L ABG HCO3 35 H 36 H ABG O2 Saturation 93 94 ABG Base Excess 4 H 5 H FiO2 50 50 Sodium 137 Potassium 6.4 H* D Chloride 99 Carbon Dioxide 33.9 H Anion Gap 4 L BUN 23 Creatinine 0.9 Estim Creat Clear Calc 78.8 eGFR > 60 BUN/Creatinine Ratio 26 H Glucose 152 H Calculated Osmolality 280 Calcium 8.1 L Corrected Calcium 8.6 Phosphorus 3.5 Magnesium 2.2 Total Bilirubin < 0.2 L AST 14 ALT 9 L Alkaline Phosphatase 83 Total Protein 7.0 Albumin 3.4 Globulin 3.6 H Albumin/Globulin Ratio 0.9 L Lymphocyte Subset Cmmnt % CD3 Cells Absolute CD3 Count % CD3-/CD16+/CD56+ Abs CD3-/CD16+/CD56+ % CD4 Cells Absolute CD4 Count CD4/CD8 Ratio % CD8 Cells Absolute CD8 Count % CD19 Cells Absolute CD19 Count Hepatitis A IgM Ab Hep Bs Antigen Hep B Core IgM Ab Hepatitis C Antibody HIV (1&2) Ab Confirm Toxoplasma IgG Ab Toxoplasma IgM Ab Toxoplasma Ab Interp Beta-(1,3)-D-Glucan B-(1,3)-D-Glucan Intrp Misc Test Result ABG Interpretation ABG results: 03/02/25 03/02/25 03/03/25 11:30 15:31 19:58 ABG pH 7.39 7.45 ABG pCO2 51 H 45 ABG pO2 90 67 L D ABG HCO3 30 H 31 H ABG O2 Saturation 96 93 ABG Base Excess 4 H 6 H VBG pH 7.46 VBG pCO2 41 VBG pO2 70 H VBG Base Excess 5 H 03/04/25 03/04/25 03/05/25 04:24 19:00 04:10 ABG pH 7.49 H 7.29 L D 7.34 L ABG pCO2 38 62 H D 60 H ABG pO2 103 D 104 177 H D ABG HCO3 29 H 30 H 32 H ABG O2 Saturation 97 97 100 H ABG Base Excess 5 H 2 5 H VBG pH VBG pCO2 VBG pO2 VBG Base Excess 03/06/25 03/07/25 03/07/25 04:06 04:13 05:55 ABG pH 7.35 7.21 L D 7.23 L ABG pCO2 60 H 88 H* D 86 H* ABG pO2 72 L D 75 L 78 L ABG HCO3 34 H 35 H 36 H ABG O2 Saturation 94 93 94 ABG Base Excess 6 H 4 H 5 H VBG pH VBG pCO2 VBG pO2 VBG Base Excess Quality Measures Quality Measures VTE prophylaxis Assessment & Plan Assessment Current Active Medications: Generic Name Dose Route Start Last Admin Trade Name Freq PRN Reason Stop Dose Admin Acetaminophen 650 mg 03/02/25 14:53 03/02/25 16:38 Acetaminophen 325 Mg Tablet PO 04/01/25 14:52 650 mg Q6H PRN Administration pain and Fever >100.4 Albuterol/Ipratropium 3 ml 03/04/25 19:00 03/07/25 06:45 Albuterol/Ipratropium (Duoneb) Rt [place] 3 Ml Nebu INH 04/03/25 18:59 3 ml Q6HRRT ELEANOR Administration Albuterol/Ipratropium 3 ml 03/04/25 13:25 03/04/25 14:34 Albuterol/Ipratropium (Duoneb) Rt [place] 3 Ml Nebu INH 04/03/25 13:24 3 ml Q2HR PRN Administration SHORTNESS OF BREATH OR WHEEZE Emtricitabine/Tenofovir 1 tab 03/04/25 13:15 03/07/25 08:30 Emtricitabine 200 Mg/Tenofovir 300 Mg Tab (Non-Form) PO 03/11/25 13:14 1 tab QDAY ELEANOR Administration Famotidine 20 mg 03/05/25 09:00 03/07/25 08:30 Famotidine Inj 10 Mg/Ml Vial 2 Ml IVP 04/04/25 08:59 20 mg BID ELEANOR Administration Heparin Sodium (Porcine) 5,000 unit 03/02/25 22:00 03/07/25 05:41 Heparin Sod Inj 5000 Unit/Ml Vial SC 03/16/25 21:59 5,000 unit Q8HR ELEANOR Administration Ceftriaxone Sodium/Dextrose 1,000 mg in 50 mls @ 100 mls/hr 03/02/25 15:00 03/06/25 14:42 Rocephin/D5w 1gm Iv Premix IV 03/09/25 14:59 100 mls/hr Q24H ELEANOR Administration Propofol 1,000 mg in 100 mls @ 2.133 mls/hr 03/07/25 00:55 03/07/25 06:00 Diprivan Ivpb IV 04/03/25 16:01 50 mcg/kg/min .Q24H PRN 21.33 mls/hr PER PROTOCOL Titration Protocol 5 MCG/KG/MIN Midazolam HCl 100 mg in 100 mls @ 1 mls/hr 03/07/25 00:55 03/07/25 06:00 Versed Pf Inj In Ns Premix IV 03/11/25 13:28 4 mg/hr .Q24H PRN 4 mls/hr PER PROTOCOL Titration Protocol 1 MG/HR Fentanyl Citrate 2,500 mcg in 250 mls @ 2.5 mls/hr 03/07/25 00:55 03/07/25 06:50 Sublimaze Inj 2,500 Mcg/250 Ml Bag IV 03/09/25 16:01 300 mcg/hr .Q24H PRN 30 mls/hr PER PROTOCOL Administration Protocol 25 MCG/HR Labetalol HCl 5 mg 03/02/25 15:42 03/04/25 08:57 Labetalol Inj 5 Mg/Ml Vial 20 Ml IVP 04/01/25 15:41 5 mg Q6HR PRN Administration SBP >170 and hold if HR<70 Nicotine 14 mg 03/04/25 13:30 03/07/25 08:31 Nicotine Patch 14 Mg/24 Hr Patch.Td24 TOP 04/03/25 13:29 14 mg QDAY ELEANOR Administration Ondansetron HCl 4 mg 03/02/25 14:53 Ondansetron Inj 2 Mg/Ml Inj 2 Ml IV 04/01/25 14:52 Q6H PRN NAUSEA OR VOMITING Protocol Oseltamivir Phosphate 75 mg 03/02/25 21:30 03/07/25 08:30 Oseltamivir 75 Mg Capsule PO 03/12/25 21:29 75 mg BID ELEANOR Administration Sodium Chloride 3 ml 03/02/25 14:11 03/02/25 14:32 Sodium Chloride Rt [place] 0.9% 3 Ml Nebu INH 04/01/25 14:10 3 ml PRN PRN Administration SOLN Plan 59-year-old male with past medical history of HIV (diagnosed in 1999) was admitted to the ICU on 03/02/2025 for acute hypoxic respiratory failure secondary to community-acquired pneumonia and sepsis. 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 Improved with metoprolol and reducing acidosis. Respiratory: #Acute hypoxic respiratory failure secondary to staph pneumonia, Influenza and R pneumothorax Cocci, RSV negative - Continue IV antibiotics, see ID section - Daily ABG #Right-sided pneumothorax s/p chest tube Patient's respiratory failure worsened despite adequate medical management and he was subsequently intubated for airway protection and was found to have a right sided 90% pneumothorax. Chest tube 03/04 inserted on the right side which drained brown-colored pleural fluid which was sent for cytology Bronchoscopy 03/04 showed necrotic mucous plug at right bronchus Pleural fluid exudative with extremely high LDH and amylase Plan: - Daily CXR - Continue chest tube, once output <200 in 24 hour period and pneumothorax resolves can plan for removal - Adjust ventilator for low mean airway pressure while allowing permissive hypercapnia Renal: #Hyperkalemia, improving May be related to TMP-SMX, acidosis, ART - Calcium gluconate - Insulin, dextrose, kayexelate, Lasix - Adjust ventilator to reduce acidosis - Follow up K #Lactic acidosis?resolved #Hypoosmolar hyponatremia?resolved GI: #Diarrhea?resolved Endo: No active disease Heme: #Leukocytosis, resolved ID: #Sepsis due to Staph pneumonia and bacteremia, influenza A Sputum, blood, and pleural culture staph pneumonia - Discontinued azithromcyin - Continue Rocephin, Tamiflu (03/02-03/06) - Repeat cultures prelim negative - Echo to screen for vegetations #AIDS CD4 count 59 - HIV viral load pending - Continue on Bactrim - Discontinued prednisone - Continue ART with raltegravir and entricitabine and tenofovir - ID Dr. Pierce following #Hepatitis C positive - HCV viral load pendin Hospital Maintenance: Dispo: ICU for acute hypoxic respiratory failure secondary to pneumonia, pneumothorax Diet: N.p.o.; tube feeds DVT ppx: Heparin GI ppx: pepcid IV lines: PIV, R chest tube, ET tube, OG tube Code status: Full code I have reviewed and discussed the patient's care with my attending, Dr. Oracio Thorne MD PGY-3 Attending Provider Attestation/Addendum Patient seen and examined with above resident, Cara Thorne MD. I agree with the findings, assessment, and plan of care as documented except for differences below. Patient with significant pneumothorax despite chest tube placement though this has improved initially postintubation. Patient remains on appropriate antibiotics coverage with definitive MSSA by sensitivity. Patient with significant hyperkalemia today. We did exclude presence of propofol infusion syndrome, rhabdomyolysis, and renal failure. He has had excellent urine output suggesting against oral filtration. Hyperkalemia may be related to ARB therapy versus Bactrim. Bactrim was decreased to prophylactic dosing given negative Fungitell testing. Patient antibiotics and antiviral therapy for influenza to be completed, course of antibiotics will likely be 6 weeks given presence of bacteremia and empyema. We were planning to repeat bronchoscopy today to evaluate to hold off secondary to hyperkalemia which was addressed using Kayexalate, Lasix, and Veltassa along with adjustment in medications that could be precipitating. Patient remains afebrile but having intermittent tachycardia. This did improve with adjustments in ventilation to ensure adequate clearance of pCO2 and normalization of pH. Patient remains otherwise hemodynamically stable off of vasopressors. Remains afebrile with white count slowly improving. Await CT for testing as well as HCV screening. Total critical care time: I personally spent 45 minutes for review of physiologic parameters, directing plan of care throughout the day, and coordination of care with other subspecialists. Patient remains at high risk for further morbidity and mortality warranting close monitoring care only available in the intensive care unit. Patient receiving critical care services for acute hypoxic respiratory failure, empyema, MSSA bacteremia, MSSA pneumonia.
[2025-03-07] MEDS: SOD POLYSTYRENE SULFON SUSP 15 GM/60 ML BTL PO (09:54)
[2025-03-07] MEDS: METOPROLOL TARTRATE INJ 1 MG/ML AMP 5 ML 5 MG IVP (09:54)
--- NOTE | 2025-03-07 10:26 | PD.IDPROG ---
Subjective Subjective Interval history: K elevation noted. was high before. now intubated. cx with staph. no pjp noted. Exam Vital Signs Temp Pulse Resp BP Pulse Ox O2 Del Method O2 Flow Rate 98.7 F 143 H 20 155/96 H 97 Mechanical Ventilation 50 03/07/25 07:00 03/07/25 09:54 03/07/25 06:50 03/07/25 09:54 03/07/25 07:00 03/07/25 04:00 03/06/25 04:00 FiO2 50 03/07/25 06:50 Narrative Exam on vent. likely staph pneumonia on heels of flu. cd4 low, may have some R if he was parsing out his meds. hep c hx raises concern that he may not be that adherent to rx. Objective - Internal Medicine Labs 03/07/25 05:28 03/07/25 05:28 Labs: Laboratory Results - last 24 hr 03/02/25 03/03/25 03/05/25 15:42 04:25 05:06 WBC RBC Hgb Hct MCV MCH MCHC RDW Std Deviation Plt Count Neut % (Auto) Lymph % (Auto) [place] % (Auto) Eos % (Auto) Baso % (Auto) Neut # (Auto) Lymph # (Auto) [place] # (Auto) Eos # (Auto) Baso # (Auto) Immature Gran # (Auto) Absolute Nucleated RBC Immature Gran % Nucleated RBC % Total Abs Lymphocytes 245 L Puncture Site ABG pH ABG pCO2 ABG pO2 ABG HCO3 ABG O2 Saturation ABG Base Excess FiO2 Sodium Potassium Chloride Carbon Dioxide Anion Gap BUN Creatinine Estim Creat Clear Calc eGFR BUN/Creatinine Ratio Glucose Calculated Osmolality Calcium Corrected Calcium Phosphorus Magnesium Total Bilirubin AST ALT Alkaline Phosphatase Total Protein Albumin Globulin Albumin/Globulin Ratio Lymphocyte Subset Cmmnt TNP % CD3 Cells 71 Absolute CD3 Count 174 L % CD3-/CD16+/CD56+ 5 Abs CD3-/CD16+/CD56+ <20 L % CD4 Cells 23 L Absolute CD4 Count 59 L CD4/CD8 Ratio 0.48 L % CD8 Cells 48 H Absolute CD8 Count 123 L % CD19 Cells 22 Absolute CD19 Count 53 L Hepatitis A IgM Ab Non Reactive Hep Bs Antigen Non Reactive Hep B Core IgM Ab Non Reactive Hepatitis C Antibody Reactive A HIV (1&2) Ab Confirm See Cmnt-Confrm=Pos A Toxoplasma IgG Ab <7.20 Toxoplasma IgM Ab <8.00 Toxoplasma Ab Interp SEE NOTE Beta-(1,3)-D-Glucan <31 B-(1,3)-D-Glucan Intrp NEGATIVE Misc Test Result See Sep Rpt 03/07/25 03/07/25 03/07/25 04:13 05:28 05:55 WBC 12.6 H RBC 4.08 L Hgb 13.3 L Hct 40.7 L MCV 100 MCH 32.6 MCHC 32.7 RDW Std Deviation 50.1 H Plt Count 273 Neut % (Auto) 90 H Lymph % (Auto) 3 L [place] % (Auto) 4 Eos % (Auto) 0 Baso % (Auto) 0 Neut # (Auto) 11.4 H Lymph # (Auto) 0.4 L [place] # (Auto) 0.5 Eos # (Auto) 0.0 Baso # (Auto) 0.0 Immature Gran # (Auto) 0.29 H Absolute Nucleated RBC 0.00 Immature Gran % 2 H Nucleated RBC % 0 Total Abs Lymphocytes Puncture Site Right Radial Left Radial ABG pH 7.21 L D 7.23 L ABG pCO2 88 H* D 86 H* ABG pO2 75 L 78 L ABG HCO3 35 H 36 H ABG O2 Saturation 93 94 ABG Base Excess 4 H 5 H FiO2 50 50 Sodium 137 Potassium 6.4 H* D Chloride 99 Carbon Dioxide 33.9 H Anion Gap 4 L BUN 23 Creatinine 0.9 Estim Creat Clear Calc 78.8 eGFR > 60 BUN/Creatinine Ratio 26 H Glucose 152 H Calculated Osmolality 280 Calcium 8.1 L Corrected Calcium 8.6 Phosphorus 3.5 Magnesium 2.2 Total Bilirubin < 0.2 L AST 14 ALT 9 L Alkaline Phosphatase 83 Total Protein 7.0 Albumin 3.4 Globulin 3.6 H Albumin/Globulin Ratio 0.9 L Lymphocyte Subset Cmmnt % CD3 Cells Absolute CD3 Count % CD3-/CD16+/CD56+ Abs CD3-/CD16+/CD56+ % CD4 Cells Absolute CD4 Count CD4/CD8 Ratio % CD8 Cells Absolute CD8 Count % CD19 Cells Absolute CD19 Count Hepatitis A IgM Ab Hep Bs Antigen Hep B Core IgM Ab Hepatitis C Antibody HIV (1&2) Ab Confirm Toxoplasma IgG Ab Toxoplasma IgM Ab Toxoplasma Ab Interp Beta-(1,3)-D-Glucan B-(1,3)-D-Glucan Intrp Misc Test Result ABG Interpretation ABG results: 0403/02/25 03/03/25 11:30 15:31 19:58 ABG pH 7.39 7.45 ABG pCO2 51 H 45 ABG pO2 90 67 L D ABG HCO3 30 H 31 H ABG O2 Saturation 96 93 ABG Base Excess 4 H 6 H VBG pH 7.46 VBG pCO2 41 VBG pO2 70 H VBG Base Excess 5 H 03/04/25 03/04/25 03/05/25 04:24 19:00 04:10 ABG pH 7.49 H 7.29 L D 7.34 L ABG pCO2 38 62 H D 60 H ABG pO2 103 D 104 177 H D ABG HCO3 29 H 30 H 32 H ABG O2 Saturation 97 97 100 H ABG Base Excess 5 H 2 5 H VBG pH VBG pCO2 VBG pO2 VBG Base Excess 03/06/25 03/07/25 03/07/25 04:06 04:13 05:55 ABG pH 7.35 7.21 L D 7.23 L ABG pCO2 60 H 88 H* D 86 H* ABG pO2 72 L D 75 L 78 L ABG HCO3 34 H 35 H 36 H ABG O2 Saturation 94 93 94 ABG Base Excess 6 H 4 H 5 H VBG pH VBG pCO2 VBG pO2 VBG Base Excess Assessment & Plan A&P Narrative hiv pos with cd4 63 noted. flu a by rx. I can not find the test. usual rx for flu is tamiflu bid for 5days possible pjp infection, LDH high but has lobar pneumonia on cxr, but had persistent sx. confusion with pending labs and was here in ED in 2022 hypoxemia with pneumonia and tachypnea as noted now intubated pneumonia, rll. unusual for pjp or tb . with staph aureus bacteremia improved on rocephin ox NICOLASA<0.25. baseline labs pending as all we have so far is his cd4. was in ED in 2022 so maybe he has been here longer than stated he was released from incarceration so place of acquisition also not yet known. along with sexual preference current rx ok for now. ok to just leave on bactrim daily for pjp prevention with cd4 < 200 even though is may be from his acute infection. with jesus in [place], will repeat the bc in am and get echo Time Spent With Patient Time: Total time spent is greater than 50% in coordination of care (as documented) at patient's floor/unit and/or counseling patient:
--- NOTE | 2025-03-07 10:30 | ECHO_ITS ---
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^^^^ Indications: Procedure Performed: BP: 127 / 80 HR: 115 Technical Quality: Technically difficult study MEASUREMENTS (Male / Female) Normal Values 2D ECHO LV Diastolic Diameter PLAX 4.2 cm 4.2 - 5.9 / 3.9 - 5.3 cm LV Systolic Diameter PLAX 2.8 cm IVS Diastolic Thickness 1.1 cm 0.6 - 1.0 / 0.6 - 0.9 cm LVPW Diastolic Thickness 0.8 cm 0.6 - 1.0 / 0.6 - 0.9 cm LV Relative Wall Thickness 0.5 LVOT Diameter 1.9 cm Aortic Root Diameter 3.9 cm LA Systolic Diameter LX 3.0 cm 3.0 - 4.0 / 2.7 - 3.8 cm DOPPLER AV Peak Velocity 153.0 cm/s AV Peak Gradient 9.4 mmHg AV Mean Gradient 6.0 mmHg AV Velocity Time Integral 26.6 cm LVOT Peak Velocity 137.0 cm/s LVOT Peak Gradient 7.5 mmHg LVOT Velocity Time Integral 27.6 cm LVOT Cardiac Index 4979.7 cm?/min?m? AV Area Cont Eq vti 2.9 cm? AV Area Cont Eq pk 2.5 cm? MV Area PHT 5.8 cm? Mitral E Point Velocity 81.5 cm/s LV E' Lateral Velocity 17.4 cm/s Mitral E to LV E' Lateral Ratio 4.7 LV E' Septal Velocity 13.2 cm/s Mitral E to LV E' Septal Ratio 6.2 TR Peak Velocity 253.5 cm/s TR Peak Gradient 25.7 mmHg PV Peak Velocity 83.2 cm/s PV Peak Gradient 2.8 mmHg RVOT Peak Velocity 48.8 cm/s FINDINGS Left Ventricle Normal left ventricular size, wall thickness, systolic function with no obvious regional wall motion abnormalities. There is grade I diastolic dysfunction of the left ventricle (impaired relaxation pattern). The left ventricular ejection fraction is normal, estimated at 65-70%. Right Ventricle The right ventricle is normal in size and systolic function. The estimated right ventricular systolic pressure, 26 mmHg. Left Atrium The left atrium is normal by two-dimensional, color flow and Doppler imaging with no structural abnormalities, no thrombus formation present. Right Atrium The right atrium is normal by two-dimensional imaging, color flow and Doppler imaging with no structural abnormalities, no thrombus formation present. Atrial Septum The interatrial septum appears normal with no evidence of a shunt. Aorta The aorta is normal by two-dimensional, color flow and Doppler interrogation. Mitral Valve Mild mitral annular calcification. Mild mitral regurgitation. Aortic Valve Aortic valve sclerosis. Tricuspid Valve There is mild tricuspid valve regurgitation. Pulmonic Valve The pulmonic valve is not well visualized. There is no significant pulmonic valve regurgitation. Vessels The pulmonary artery appears normal. The inferior vena cava pulmonary and hepatic veins appear normal. Pericardium The pericardium is normal by two-dimensional imaging. There is no significant pericardial effusion. CONCLUSIONS indication: bacteremia LV appears normal with EF 65-70%. Diastolic Dysfunction I. RV appears normal with RVSP 26 mmHg. Mild MR & TR AOV Sclerosis Evelia Staley (Electronically Signed) Final Date: 07 Mar 2025 16:17
[2025-03-07] MEDS: ACETAMINOPHEN 325 MG TABLET 650 MG PO (11:24)
[2025-03-07 11:46] LABS: Cardiac Risk Estimate 4.1 RATIO (4.0-6.7); Cholesterol 128 mg/dL (132-200); Creatine Kinase 22 U/L (34-171); HDL Cholesterol 31 mg/dL (40-60); LDL Cholesterol,Calculated 68 mg/dL (0-130); Triglycerides 144 mg/dL (30-150)
[2025-03-07] MEDS: METOPROLOL TARTRATE INJ 1 MG/ML AMP 5 ML 10 MG IVP (11:52)
[2025-03-07] MEDS: FUROSEMIDE INJ 10 MG/ML 4ML VIAL 40 MG IVP (12:06)
[2025-03-07] MEDS: SOD POLYSTYRENE SULFON SUSP 15 GM/60 ML BTL 30 GM PO (12:08)
[2025-03-07] MEDS: Magnesium Sulfate 2 GM Ivpb 2 GM/50 ML BAG IV (12:08)
[2025-03-07 13:53] LABS: Misc Send Out* See Sep Rpt
[2025-03-07] MEDS: cefTRIAXone/D5w 1gm IV premix 1,000 MG/50 ML BAG IV (14:20)
[2025-03-07 15:45] LABS: Potassium 5.9 mMol/L (3.4-5.1)
[2025-03-07 19:40] LABS: Potassium 5.3 mMol/L (3.4-5.1)
[2025-03-07] MEDS: RALTEGRAVIR 400 MG TABLET NG (21:53)
[2025-03-08] VITALS (44 sets, daily range): BP systolic 78–146; BP diastolic 58–93; PULSE 108–144; RESP 20–30; TEMP 36.3–38.1; O2SAT 87–97; BMI 24.3
[2025-03-08] MEDS: ALBUTEROL/IPRATROPIUM (Duoneb) RT SOL 3 ML NEBU INH ×3 (00:20→13:14)
[2025-03-08] MEDS: fentaNYL 2,500 MCG/250 ML BAG 2,500 MCG/250 ML BAG 30 MCG IV ×3 (00:57→19:00)
[2025-03-08 04:39] LABS: Base Excess 9 (-3-3); HCO3 39 mEq/L (20-26); Inspired Oxygen, FIO2 55 %; O2 Saturation 89 % (91-98); PCO2 81 mmHg (32.0-48.0); pH, Arterial 7.29 (7.35-7.45)
[2025-03-08 04:42] LABS: Allen Test Performed/OK; PO2 59 mmHg (83-108); Puncture Site Left Radial
[2025-03-08] MEDS: PROPOFOL 1,000 MG IVPB 1,000 MG/100 ML VIAL 21.33 MG IV ×5 (05:00→23:10)
[2025-03-08] MEDS: HEPARIN SOD INJ 5000 UNIT/ML VIAL SC ×3 (05:05→21:20)
[2025-03-08] MEDS: METOPROLOL TARTRATE INJ 1 MG/ML AMP 5 ML 10 MG IVP ×3 (05:47→11:28)
--- NOTE | 2025-03-08 06:00 | XR_ITS ---
Examination: AP chest single view Technique one AP portable semiupright chest single view Exam date and time: March 08, 2025, 0511 hours Comparison March 07, 2025 INDICATIONS: Status post right chest tube for right pneumothorax FINDINGS: Right chest tube satisfactory position Right apical lateral pneumothorax 15% Endotracheal tube tip 5.9 cm above anirudh Moderate enlargement cardiac contour Significant bilateral primarily bibasilar pneumonia since The orogastric tube is in the stomach, the tip is below the level of the film Significant vascular congestion IMPRESSION: Right chest tube satisfactory position Right apical lateral pneumothorax approximately 15%
[2025-03-08 06:13] LABS: Basophils # (Auto) 0.1 Thou/mm3 (0.0-0.2); Basophils % (Auto) 1 % (0-2.5); Eosinophils % (Auto) 0 % (0-10); Hemoglobin 14.6 g/dL (13.5-16.0); Immature Granulocytes % (Auto) 3 % (0-0); Immature Granulocytes Auto 0.49 Thou/mm3 (0.00-0.00); Lymphocytes # (Auto) 1.6 Thou/mm3 (1.0-4.8); Lymphocytes % (Auto) 8 % (10-50); Mean Corpuscular HGB Conc 31.7 g/dl (31.0-37.0); Mean Corpuscular Hemoglobin 32.2 pg (25.0-35.0); Mean Corpuscular Volume 102 fL (80-100); Monocytes # (Auto) 0.6 Thou/mm3 (0.0-0.8); Monocytes % (Auto) 3 % (0-12); Neutrophils # (Auto) 16.5 Thou/mm3 (1.8-7.7); Neutrophils % (Auto) 85 % (37-80); Nucleated Red Blood Cell # 0.03 Thou/mm3 (0.00-0.00); Nucleated Red Blood Cell % 0 /100 WBC (0); Platelet Count 388 Thou/mm3 (140-440); RDW Standard Deviation 51.6 fL (35.1-43.9); Red Blood Count 4.53 Miln/mm3 (4.50-5.90); White Blood Count 19.4 Thou/mm3 (3.8-10.6)
[2025-03-08 07:02] LABS: Alanine Aminotransferase 30 U/L (10-49); Albumin, Serum 3.5 gm/dL (3.4-4.8); Albumin/Globulin Ratio 0.9 (1.2-2.2); Alkaline Phosphatase 110 U/L (46-116); Anion Gap 4 (7-16); Aspartate Amino Transferase 36 U/L (0-34); BUN/Creatinine Ratio 30 Ratio (12-20); Bilirubin,Total 0.2 mg/dL (0.3-1.2); Blood Urea Nitrogen 33 mg/dL (9-23); Calcium 8.1 mg/dL (8.3-10.6); Calcium (Corrected) 8.5 mg/dL (8.5-10.1); Carbon Dioxide 33.5 mMol/L (20.0-31.0); Chloride 99 mMol/L (98-107); Creatinine (Component) 1.1 mg/dL (0.6-1.3); Estimated Creatinine Clearance 64.4 mL/min (>60); Globulin 3.7 gm/dL (2.3-3.5); Glucose 138 mg/dL (74-106); Magnesium 2.2 mg/dL (1.6-2.6); Osmolality,Calculated 281 (275-295); Potassium 5.5 mMol/L (3.4-5.1); Sodium 136 mMol/L (136-145); Total Protein 7.2 gm/dL (5.7-8.2); eGFR > 60 See Note
[2025-03-08] MEDS: PIPER/TAZO 3.375 GM PREMIX 3.375 GM/50 ML BAG IV (07:41)
[2025-03-08] MEDS: NICOTINE PATCH 14 MG/24 HR PATCH.TD24 TOP (08:01)
[2025-03-08] MEDS: FAMOTIDINE INJ 10 MG/ML VIAL 2 ML 20 MG IVP ×2 (08:01→21:19)
[2025-03-08] MEDS: EMTRICITABINE 200 MG/TENOFOVIR 300 MG TAB (NON-FORM) 1 TAB PO (08:02)
[2025-03-08] MEDS: TRIMETHOPRIM/SULFA 160/800 DS TABLET 1 TAB PO (08:02)
[2025-03-08] MEDS: RALTEGRAVIR 400 MG TABLET NG ×2 (08:02→21:20)
--- NOTE | 2025-03-08 09:00 | XR_ITS ---
Examination: AP chest single view Technique one AP portable upright chest single view Exam date and time: March 08 0902 hours Comparison March 08, 2025 0511 hours INDICATIONS: Worsening hypoxia today FINDINGS: Right chest tube remains in satisfactory position Right apical lateral pneumothorax again depicted approximately 15% Endotracheal tube tip 7.7 cm above anirudh Prominent bibasilar pneumonia Orogastric tube in the stomach, the tip is below the level of the film IMPRESSION: Right chest tube remains satisfactory position Right apical lateral pneumothorax stable
[2025-03-08] MEDS: MIDAZOLAM/NS 100 MG IVPB 100 MG/100 ML BAG 6 MG IV (09:07)
--- NOTE | 2025-03-08 09:39 | PD.RESPRO ---
Documentation for date of: 03/08/25 Subjective Subjective Interval history: 59-year-old male with past medical history of HIV (diagnosed in 1999) was admitted to the ICU on 03/02/2025 after coming to the ED with complaints of shortness of breath for the past few days. On assessment patient was a very poor historian and was having difficulty breathing and could not complete full sentences. Patient stated that around 10 days ago he started feeling sick, but that he got better and all of a sudden he got worse again. He mentioned that he had fevers, productive cough with some specks of blood, some diarrhea, burning sensation urination, and shortness of breath. Patient mentioned that he moved from [place] a few months ago and that he is new to the area. He mentioned that he had a viral load done a few months ago, but given the patient very poor historian he did not specify how long ago. He stated that he he has seen a physician recently, but not following any HIV specialist. Patient stated that sometimes he misses his doses of Biktarvy. He also mentioned that he stopped smoking 1 month ago and that he used to smoke around 1 pack/month. 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 Patient was admitted to the ICU given increased work of breathing and anticipation for respiratory failure due to exhaustion possibly requiring intubation. 03/03/25: Patient seen and examined in the ICU today. Overnight patient felt like he had subjective fevers however there were no recorded objective fevers. Patient remains tachypneic and tachycardic and his FiO2 is 40% this morning. Repeat chest x-ray showed slightly worsened right-sided pneumonia. Started patient on Bactrim due to his history of noncompliance with his ART. Will wait for beta 1, 3 D glucan results and clinical presentation to improve before we discontinue it. Also pending CD4 count and viral load. Appreciate ID recommendations. Will encourage patient's p.o. intake. 03/04/2025: Patient was seen and examined in the ICU today. Overnight patient remained about the same in terms of his respiratory status with increased work of breathing. He remained tachypneic and tachycardic with an FiO2 of 50% and chest x-ray once again confirm worsening right sided pneumonia. Dr Pierce saw the patient and recommended to continue Tamiflu Rocephin azithromycin and Bactrim as well as starting the patient on prednisone 40 p.o. twice daily. We also started patient on ART. Patient blood cultures came back positive for GPC bacteremia on both bottles and he is adequately covered with the current antibiotics. Ordered repeat blood cultures today. Later in the afternoon patient became suddenly more tachypneic and tachycardic and his FiO2 had to be bumped up to 100% and he remained satting in the low 90s. At bedside patient was agitated and he was threatening to leave AGAINST MEDICAL ADVICE however after further evaluation of his mentation patient was only alert to self and place but not to time and he was stating that his uncle sleeping next-door and he needed to go home to see his mom. Due to patient's increased work of breathing the decision was made to sedate and intubate patient. Postextubation chest x-ray revealed 90% right sided pneumothorax that did not seem to be under tension. Subsequently a chest tube was inserted on the right side which revealed brown-colored pleural fluid. Follow-up x-ray revealed adequate positioning of the chest tube on the right wall but the pneumothorax remained. Will continue to reevaluate patient's pneumothorax daily as well as attempting to wean off of ventilator. Of note: Multiple attempts were done to contact patient's relatives in order to obtain consent for procedures however they were unsuccessful and procedures were done urgently as patient's critical status continued to worsen. 03/05/2025: Overnight, the chest tube output was 250cc. There is continuous bubbles, suggesting a terminal bronchiole leak. The flow and thus I:E ratio was adjusted to minimize the air leak from continous to intermittent bubbles. The preliminary sputum culture grew GPC. The preliminary blood culture sputum grew GPC resmbling staph. We will continue ceftriaxone for GPC pneumonia and bacteremia. We will continue TMP-SMX and prenidsone, anti-virals, and tamiflu. HIV viral load and CD4 count pending. We will start trickle feeds for the patient. 03/06/2025: No acute problems overnight. Chest tube output 150cc in the last 24 hours. Persistent leak noted on chest tube. Pneumothorax remains stable. Patient still triggering ventilator. Will increase sedation and optimize ventilator to improve mean airway pressure. Chest tube suctioned decreased from -20 to -10. Cultures and HIV viral load/CD4 count pending. 03/07/2025: Overnight, patient was tachycardic. Chest tube output 15cc. ABG shows respiratory acidosis with permissive hypercapnia. Planned for bronchoscopy today however patient was hyperkalemic and tachycardic. Patient was given calcium gluconate to stabilize the cardiac membrane, and insulin and kayexelate. The ventilator was adjusted to blow off acidosis that may be contributing to the hyperkalemia. Tachycardia improved, potassium improved. CD4 count returned at 59. Sputum, blood, and pleural cultures growing Staph aureas. Plan for bronchoscopy tomorrow if needed. 03/08/2025: Patient tachycardic overnight, recieved metoprolol with some mild improvement of heart rate from 140s to 120s. Chest tube output was ~100 overnight. This morning, patient remains tachycardic. Arterial pH and CO2 improved and remains permissively hypercapnic. Potassium improved. CXR shows worsening basilar pneumonia. Antibiotics broadened to include pseudomonal coverage. Trial 500NS bolus did not improv tachycardia. CXR findings, leukocytosis, and tachycardia may be IRIS response versus worsening PNA. Regarding the pneumothorax, when suction was turned off on the chest tube, no tidaling was noted. Suction was increased to -10 and tidaling present; leak resolved. Bedside bronchoscopy was done which showed purulent secretions throughout the right lung. A BAL was obtained and sent for culture. Exam Vital Signs Temp Pulse Resp BP Pulse Ox O2 Del Method O2 Flow Rate 98.4 F 135 H 22 H 115/87 H 90 L Mechanical Ventilation 50 03/08/25 07:00 03/08/25 09:00 03/08/25 07:06 03/08/25 09:00 03/08/25 09:00 03/07/25 04:00 03/06/25 04:00 FiO2 75 03/08/25 07:06 Narrative Exam Constitutional: Intubated, sedated. HEENT: NCAT. Diaphoretic. Respiratory: Decreased breath sounds. Pleural rub right lateral lung, improved. Chest tube inserted in right mid-axillary chest. Cardiac: Tachycardic. Abdomen: Soft, mildly distended, non-tender. No guarding, no rebound. MSK: No B/L LE edema. Skin: Warm, dry, intact. No obvious lesions. Objective Labs 03/08/25 05:21 03/08/25 05:21 Labs: Laboratory Results - last 24 hr 03/05/25 03/05/25 03/07/25 05:06 05:06 10:41 WBC RBC Hgb Hct MCV MCH MCHC RDW Std Deviation Plt Count Neut % (Auto) Lymph % (Auto) [place] % (Auto) Eos % (Auto) Baso % (Auto) Neut # (Auto) Lymph # (Auto) [place] # (Auto) Eos # (Auto) Baso # (Auto) Immature Gran # (Auto) Absolute Nucleated RBC Immature Gran % Nucleated RBC % Puncture Site ABG pH ABG pCO2 ABG pO2 ABG HCO3 ABG O2 Saturation ABG Base Excess FiO2 Sodium Potassium 7.0 H* D Chloride Carbon Dioxide Anion Gap BUN Creatinine Estim Creat Clear Calc eGFR BUN/Creatinine Ratio Glucose Calculated Osmolality Calcium Corrected Calcium Magnesium Total Bilirubin AST ALT Alkaline Phosphatase Total Creatine Kinase 22 L Total Protein Albumin Globulin Albumin/Globulin Ratio Triglycerides 144 Cholesterol 128 L LDL Cholesterol, Calc 68 HDL Cholesterol 31 L Cholesterol/HDL Ratio 4.1 Misc Test Result Cancelled Cancelled 03/07/25 03/07/25 03/08/25 15:05 18:55 04:30 WBC RBC Hgb Hct MCV MCH MCHC RDW Std Deviation Plt Count Neut % (Auto) Lymph % (Auto) [place] % (Auto) Eos % (Auto) Baso % (Auto) Neut # (Auto) Lymph # (Auto) [place] # (Auto) Eos # (Auto) Baso # (Auto) Immature Gran # (Auto) Absolute Nucleated RBC Immature Gran % Nucleated RBC % Puncture Site Left Radial ABG pH 7.29 L ABG pCO2 81 H* ABG pO2 59 L* ABG HCO3 39 H ABG O2 Saturation 89 L ABG Base Excess 9 H FiO2 55 Sodium Potassium 5.9 H D 5.3 H D Chloride Carbon Dioxide Anion Gap BUN Creatinine Estim Creat Clear Calc eGFR BUN/Creatinine Ratio Glucose Calculated Osmolality Calcium Corrected Calcium Magnesium Total Bilirubin AST ALT Alkaline Phosphatase Total Creatine Kinase Total Protein Albumin Globulin Albumin/Globulin Ratio Triglycerides Cholesterol LDL Cholesterol, Calc HDL Cholesterol Cholesterol/HDL Ratio Misc Test Result 03/08/25 05:21 WBC 19.4 H D RBC 4.53 Hgb 14.6 Hct 46.0 MCV 102 H MCH 32.2 MCHC 31.7 RDW Std Deviation 51.6 H Plt Count 388 D Neut % (Auto) 85 H Lymph % (Auto) 8 L [place] % (Auto) 3 Eos % (Auto) 0 Baso % (Auto) 1 Neut # (Auto) 16.5 H Lymph # (Auto) 1.6 [place] # (Auto) 0.6 Eos # (Auto) 0.0 Baso # (Auto) 0.1 Immature Gran # (Auto) 0.49 H Absolute Nucleated RBC 0.03 H Immature Gran % 3 H Nucleated RBC % 0 Puncture Site ABG pH ABG pCO2 ABG pO2 ABG HCO3 ABG O2 Saturation ABG Base Excess FiO2 Sodium 136 Potassium 5.5 H Chloride 99 Carbon Dioxide 33.5 H Anion Gap 4 L BUN 33 H Creatinine 1.1 Estim Creat Clear Calc 64.4 eGFR > 60 BUN/Creatinine Ratio 30 H Glucose 138 H Calculated Osmolality 281 Calcium 8.1 L Corrected Calcium 8.5 Magnesium 2.2 Total Bilirubin 0.2 L AST 36 H ALT 30 Alkaline Phosphatase 110 D Total Creatine Kinase Total Protein 7.2 Albumin 3.5 Globulin 3.7 H Albumin/Globulin Ratio 0.9 L Triglycerides Cholesterol LDL Cholesterol, Calc HDL Cholesterol Cholesterol/HDL Ratio Misc Test Result ABG Interpretation ABG results: 03/02/25 03/02/25 03/03/25 11:30 15:31 19:58 ABG pH 7.39 7.45 ABG pCO2 51 H 45 ABG pO2 90 67 L D ABG HCO3 30 H 31 H ABG O2 Saturation 96 93 ABG Base Excess 4 H 6 H VBG pH 7.46 VBG pCO2 41 VBG pO2 70 H VBG Base Excess 5 H 03/04/25 03/04/25 03/05/25 04:24 19:00 04:10 ABG pH 7.49 H 7.29 L D 7.34 L ABG pCO2 38 62 H D 60 H ABG pO2 103 D 104 177 H D ABG HCO3 29 H 30 H 32 H ABG O2 Saturation 97 97 100 H ABG Base Excess 5 H 2 5 H VBG pH VBG pCO2 VBG pO2 VBG Base Excess 03/06/25 03/07/25 03/07/25 04:06 04:13 05:55 ABG pH 7.35 7.21 L D 7.23 L ABG pCO2 60 H 88 H* D 86 H* ABG pO2 72 L D 75 L 78 L ABG HCO3 34 H 35 H 36 H ABG O2 Saturation 94 93 94 ABG Base Excess 6 H 4 H 5 H VBG pH VBG pCO2 VBG pO2 VBG Base Excess 03/08/25 04:30 ABG pH 7.29 L ABG pCO2 81 H* ABG pO2 59 L* ABG HCO3 39 H ABG O2 Saturation 89 L ABG Base Excess 9 H VBG pH VBG pCO2 VBG pO2 VBG Base Excess Quality Measures Quality Measures VTE prophylaxis Assessment & Plan Assessment Current Active Medications: Generic Name Dose Route Start Last Admin Trade Name Freq PRN Reason Stop Dose Admin Acetaminophen 650 mg 03/02/25 14:53 03/07/25 11:24 Acetaminophen 325 Mg Tablet PO 04/01/25 14:52 650 mg Q6H PRN Administration pain and Fever >100.4 Albuterol/Ipratropium 3 ml 03/04/25 19:00 03/08/25 07:06 Albuterol/Ipratropium (Duoneb) Rt [place] 3 Ml Nebu INH 04/03/25 18:59 3 ml Q6HRRT ELEANOR Administration Albuterol/Ipratropium 3 ml 03/04/25 13:25 03/04/25 14:34 Albuterol/Ipratropium (Duoneb) Rt [place] 3 Ml Nebu INH 04/03/25 13:24 3 ml Q2HR PRN Administration SHORTNESS OF BREATH OR WHEEZE Emtricitabine/Tenofovir 1 tab 03/08/25 09:00 03/08/25 08:02 Emtricitabine 200 Mg/Tenofovir 300 Mg Tab (Non-Form) PO 03/15/25 08:59 1 tab QDAY ELEANOR Administration Famotidine 20 mg 03/05/25 09:00 03/08/25 08:01 Famotidine Inj 10 Mg/Ml Vial 2 Ml IVP 04/04/25 08:59 20 mg BID ELEANOR Administration Heparin Sodium (Porcine) 5,000 unit 03/02/25 22:00 03/08/25 05:05 Heparin Sod Inj 5000 Unit/Ml Vial SC 03/16/25 21:59 5,000 unit Q8HR ELEANOR Administration Propofol 1,000 mg in 100 mls @ 2.133 mls/hr 03/07/25 00:55 03/08/25 08:00 Diprivan Ivpb IV 04/03/25 16:01 50 mcg/kg/min .Q24H PRN 21.33 mls/hr PER PROTOCOL Titration Protocol 5 MCG/KG/MIN Midazolam HCl 100 mg in 100 mls @ 1 mls/hr 03/07/25 00:55 03/08/25 09:07 Versed Pf Inj In Ns Premix IV 03/11/25 13:28 6 mg/hr .Q24H PRN 6 mls/hr PER PROTOCOL Administration Protocol 1 MG/HR Fentanyl Citrate 2,500 mcg in 250 mls @ 2.5 mls/hr 03/07/25 00:55 03/08/25 08:00 Sublimaze Inj 2,500 Mcg/250 Ml Bag IV 03/09/25 16:01 300 mcg/hr .Q24H PRN 30 mls/hr PER PROTOCOL Titration Protocol 25 MCG/HR Piperacillin/Tazobactam/Dextrose 3,375 mg in 50 mls @ 12.5 mls/hr 03/08/25 11:30 Zosyn IV 03/15/25 11:29 Q8H ELEANOR Labetalol HCl 5 mg 03/02/25 15:42 03/04/25 08:57 Labetalol Inj 5 Mg/Ml Vial 20 Ml IVP 04/01/25 15:41 5 mg Q6HR PRN Administration SBP >170 and hold if HR<70 Magnesium Hydroxide 30 ml 03/08/25 09:45 Milk Of Magnesia Susp 30 Ml Udc PO 04/07/25 09:44 QDAY ELEANOR Protocol Nicotine 14 mg 03/04/25 13:30 03/08/25 08:01 Nicotine Patch 14 Mg/24 Hr Patch.Td24 TOP 04/03/25 13:29 14 mg QDAY ELEANOR Administration Ondansetron HCl 4 mg 03/02/25 14:53 Ondansetron Inj 2 Mg/Ml Inj 2 Ml IV 04/01/25 14:52 Q6H PRN NAUSEA OR VOMITING Protocol Raltegravir 400 mg 03/07/25 21:00 03/08/25 08:02 Raltegravir 400 Mg Tablet NG 03/14/25 20:59 400 mg BID ELEANOR Administration Sodium Chloride 3 ml 03/02/25 14:11 03/02/25 14:32 Sodium Chloride Rt [place] 0.9% 3 Ml Nebu INH 04/01/25 14:10 3 ml PRN PRN Administration SOLN Trimethoprim/Sulfamethoxazole 1 tab 03/08/25 09:00 03/08/25 08:02 Trimethoprim/Sulfa 160/800 Ds Tablet PO 03/15/25 08:59 1 tab DAILY ELEANOR Administration Plan 59-year-old male with past medical history of HIV (diagnosed in 1999) was admitted to the ICU on 03/02/2025 for acute hypoxic respiratory failure secondary to community-acquired pneumonia and sepsis. 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 encephalopathy Patient is currently sedated for ventilator synchrony Versed, propofol, and fentanyl for goal RAAS -3 CVS: #Hypertension - Labetolol prn #Tachycardia Differential includes PE, IRIS in the setting of AIDS, worsening pneumonia Unresponsive to gentle fluids - Continue to monitor - CTA to rule out PE Respiratory: #Acute hypoxic respiratory failure secondary to MSSA pneumonia, Influenza and R pneumothorax, ?VAP Cocci, RSV negative, Beta D Glucan negative unlikely PCP pneumonia Bronchoscopy 03/04 showed necrotic mucous plug at right bronchus - Pleural fluid exudative with extremely high LDH and amylase Bronchoscopy 03/08 mucopurulent secretions, BAL taken for culture - Continue IV antibiotics, see ID section - Daily ABG - Follow up BAL culture #Right-sided pneumothorax s/p chest tube Patient's respiratory failure worsened despite adequate medical management and he was subsequently intubated for airway protection and was found to have a right sided 90% pneumothorax. Chest tube 03/04 inserted on the right side which drained brown-colored pleural fluid which was sent for cytology Leak resolved Plan: - Daily CXR - Continue chest tube, once output <200 in 24 hour period and pneumothorax resolves can plan for removal - Adjust ventilator for low mean airway pressure while allowing permissive hypercapnia Renal: #Hyperkalemia, improving May be related to TMP-SMX, acidosis, ART - Insulin 10 + D50, Kayexelate, Lasix #Lactic acidosis?resolved #Hypoosmolar hyponatremia?resolved GI: #Diarrhea?resolved Endo: No active disease Heme: #Leukocytosis, worsening In the setting of worsening infection, IRIS in the setting of AIDS ID: #Sepsis due to MSSA pneumonia and bacteremia, influenza A Sputum, blood, and pleural culture MSSA pneumonia Received azithromycin, rocephin and Tamiflu (03/02-03/08) - Repeat cultures negative - Antibiotics broadened to Zosyn for pseudomonal coverage (03/08- - Follow up BAL from 03/08 #AIDS CD4 count 59 - HIV viral load pending - Continue Bactrim to prophylactic dose - Discontinued prednisone - Continue ART with raltegravir and entricitabine and tenofovir - ID Dr. Pierce following - Quantiferon pending #Hepatitis C positive - HCV viral load pending Hospital Maintenance: Dispo: ICU for acute hypoxic respiratory failure secondary to pneumonia, pneumothorax Diet: N.p.o.; tube feeds DVT ppx: Heparin GI ppx: pepcid IV lines: PIV, R chest tube, ET tube, OG tube Code status: Full code I have reviewed and discussed the patient's care with my attending, Dr. Oracio Thorne MD PGY-3 Attending Provider Attestation/Addendum Patient seen and examined with above resident, Cara Thorne MD. I agree with the findings, assessment, and plan of care as documented except for any differences below. Patient remains tachycardic intermittently. Suspected initially this was related to acidosis and hyperkalemia. Bactrim has been decreased to prophylactic dosing for PJP given negative Fungitell and will likely PJP pneumonia at this point. MSSA bacteremia and infection of both lung and pleural cavity. Patient remains afebrile. We did send for CTA of the chest to exclude presence of pulmonary embolism as etiology of tachycardia and significant space ventilation. This would did exclude presence of pulmonary embolism however does have significant necrotic middle lobe with hydropneumothorax for which we placed a new inferior chest tube which is draining well. 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 Patient remains on tube feedings. Hemodynamically stable without requirement for pressors. We have further optimize mechanical ventilation to minimize mean airway pressure with low PEEP high FiO2 as well as adjustments in tidal volume. Plateau pressure remains in the low teens. We will contact local cardiothoracic surgical support for transfer for probable lobectomy and decortication. Patient is not a candidate for tPA/dornase given the underlying necrotic lung. Patient's cousin who has been next of kin was called by above resident staff and notified of high risk for mortality given his staff pneumonia with necrosis. HIV testing has returned with significantly reduced CD4 count of 50, and significant AIDS pathophysiology. Patient remains on appropriate prophylaxis. We did send for CT head as well which exclude presence of embolic phenomena or other space-occupying lesions. Patient remains on deep sedation at this point to promote ventilator synchrony to avoid further pedal/Rodriguez trauma to the lung. The left lung on CT also appears to have new evolving pneumonitis/pneumonia possibly a new ventilator associated pneumonia with BAL performed again. Will await results of this we will broaden antibiotics for adequate coverage including Pseudomonas. Total critical care time: I personally spent 45 minutes for review of physiologic parameters, directing plan of care throughout the day, counseling patient's family by phone, and coordination of care for transfer to surgical treatment. This is exclusive of time spent [facility] performing any separate billable procedures. Patient at high risk for further morbidity and mortality warranting close monitoring care only available in the ICU. Patient receiving critical care services for severe sepsis, acute hypoxic respiratory failure, secondary pneumothorax, MSSA bacteremia/empyema/pneumonia, and possible ventilator associated pneumonia.
[2025-03-08] MEDS: SENNA TABLET 1 TAB PO (10:09)
[2025-03-08] MEDS: SODIUM CHLORIDE 0.9% 500 ML 500 ML 999 ML IV (10:10)
[2025-03-08] MEDS: Milk Of Magnesia Susp 30 ML UDC PO (10:10)
[2025-03-08] MEDS: DEXTROSE 50%-WATER INJ 50 ML SYRINGE IV (10:10)
[2025-03-08] MEDS: METOPROLOL TARTRATE INJ 1 MG/ML AMP 5 ML 5 MG IVP (10:11)
[2025-03-08] MEDS: INSULIN HUM REGULAR 1 UNIT/0.01 ML (PER UNIT) 10 UNIT IV (10:12)
--- NOTE | 2025-03-08 11:00 | PD.RESPROC ---
Procedures Procedure Date / Time 03/08/25 1100 Procedure Narrative Procedure Narrative: Attending attestation: I was present for entire procedure. Patient tolerated procedure well with no immediate complications. BAL performed in the right middle lobe. Secretions seem to have improved from prior examination. Bronchoscopy Bronscopy indication(s): removal of secretions and diagnostic BAL Time out done and the following verified: correct patient, side and site, procedure, patient position and implants and/or equipment Oxygen delivery: via mechanical vent. RUL & subsegmental branches: purulent secretions RML & subsegmental branches: purulent secretions RLL & subsegmental branches: purulent secretions LILI & subsegmental branches: mucosa appears normal LLL & subsegmental branches: mucosa appears normal Bronchoalveolar lavage: Fleming-colored sample obtained for culture. EBL: 0 Patient tolerated procedure: well Complications: No Procedure comment: Procedure done under the direct supervision of Cara Zeng MD PGY-3
--- NOTE | 2025-03-08 11:20 | EKG_ITS ---
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
[2025-03-08] MEDS: TAZO IV ×2 (11:28→19:35)
[2025-03-08] MEDS: PIPER IV ×2 (11:28→19:35)
[2025-03-08] MEDS: ACETAMINOPHEN 325 MG TABLET 650 MG PO (11:39)
--- NOTE | 2025-03-08 13:17 | XR_ITS ---
Examination: CTA chest with intravenous contrast 2-D reconstructions 3-D reconstructions, vascular Date and time of exam: March 08, 2025 1629 hours INDICATIONS: Worsening hypoxia, postintubation this week CTDI: vol (mGy) 24 DLP: (mGycm) 526 Technique: Multiple axial sections of the thorax have been obtained. 3 mm slice thickness, from below the hemidiaphragms to above the apices of the lungs. Mediastinal and lung density settings have been obtained. 2-D sagittal and coronal reconstructions. 3-D angiographic renderings, 3-D volume renderings, 3D post processing, vascular maximum intensity projections obtained. Contrast administered is 100 cc Isovue-370. Low dose protocols were performed. One or more of the following dose reduction techniques were used; automated exposure control, adjustment of the mA and/or KV according to patient size, use of iterative reconstruction technique. Findings: Endotracheal tube tip 3.8 cm above anirudh No thoracic aortic aneurysmal dilatation No pulmonary artery emboli Large right pneumothorax although the chest tube tip is at the medial upper right hemithorax axial image 21 Atelectasis and fluid in the lower lung zone Pneumonia at the left base probable aspiration pneumonia Liver nodular in contour, no hydronephrosis Spleen is not enlarged IMPRESSION: Endotracheal tube tip 3.8 cm above anirudh Large right pneumothorax although the chest tube tip on the right is at the medial upper right hemithorax If the lung does not reexpand on short-term follow-up chest x-rays, consider placement of a surgical chest tube in the right hemithorax Pneumonia left base, consider aspiration pneumonia
--- NOTE | 2025-03-08 13:45 | PC.NURSE ---
MD AVERY made aware of pt's HR sustaining above 140. No new orders given at this time. Plan of care ongoing.
--- NOTE | 2025-03-08 14:00 | XR_ITS ---
Examination: AP chest single view Technique one AP portable upright chest single view Exam date and time: December 09, 2024 at 1400 hours Comparison March 08, 2025 INDICATIONS: History right chest tube placement, right pneumothorax is 3 FINDINGS: Small right apical pneumothorax stable Right chest tube satisfactory position Bibasilar pneumonia Endotracheal tube tip 6.4 cm above anirudh Orogastric tube in the stomach IMPRESSION: Satisfactory position right chest tube with stable small right apical pneumothorax
--- NOTE | 2025-03-08 14:21 | XR_ITS ---
Examination: CT brain head without contrast. CT brain head with intravenous contrast 2-D sagittal reconstructions. 2-D coronal reconstructions. Date and time of exam:March 08, 2025 1417 hours INDICATIONS: Sepsis, hypoxic respiratory failure, clinical diagnosis septic emboli CTDI: vol (mGy): 104 DLP: (mGycm):2385 Technique: Axial sections of the brain have been obtained. pre and post intravenous administration 100 cc Isovue-370 5 mm slice thickness images have been obtained. Low dose protocols were performed. One or more of the following dose reduction techniques were used; automated exposure control, adjustment of the mA and/or KV according to patient size, use of iterative reconstruction technique. Findings: Ventricles are normal in size and configuration No mass effect upon the ventricular system No acute hemorrhage either intra or extra-axial Postcontrast images demonstrate no large vessel cerebral occlusions, no abnormal enhancing cerebellar or cerebral lesions IMPRESSION: Negative for acute hemorrhage mass effect or midline shift No embolic or acute infarction findings noted When the patient's condition allows, consider brain MRI MRA without contrast follow-up
--- NOTE | 2025-03-08 17:19 | PC.SS ---
Patient's brother, Alec Woods ; present to visit with patient. SUPPLY AIDE confirmed with patient's brother that patient's surrogate medical decision maker is cousin Molly Mascorro.
[2025-03-08] MEDS: LIDOCAINE HCL 1% 20 ML VIAL IM (17:34)
--- NOTE | 2025-03-08 17:46 | PC.CC ---
Addendum entered by Leona Schofield RN 03/08/25 19:13: 1829 packet and images sent to [facility], Danielle from reequested to speak to doctor. All doctors in patient's room inserting chest tube. requested Dr. Jarrod Gardner call when she can speak to them. 1854- Dr. Jarrod Gardner spoke to , the doctor from [facility] not available when she called. will recontact when doctor is available. They will speak to Dr. Smith. [facility] aware. Original Note: Received phone call from DR. Jarrod Gardner requesting to transfer patient for HLOC. Specialty is Cardiovascular/Thoracic Surg for R lung lobectomy.
[2025-03-08] MEDS: fentaNYL CIT INJ 50 mCg/ML AMP 2ML 100 MCG IVP (18:10)
--- NOTE | 2025-03-08 18:47 | XR_ITS ---
Examination: AP chest single view TECHNIQUE: AP portable upright chest single view Standing time: March 08, 2025 1908 hours Comparison the 2024 1400 hours INDICATIONS: Post second chest tube placement for pneumothorax on the right FINDINGS: Better expansion of the right lung, right apical pneumothorax approximately 15% Tracheal tube remains in satisfactory position Orogastric tube in the stomach Extensive bilateral pneumonia IMPRESSION: Improved expansion right lung post second chest tube placement
--- NOTE | 2025-03-08 18:58 | PD.RESEVENT ---
Documentation for date of: 03/08/25 Event Note Event Note: Patient is a 59 year old male with AIDS and hepatitis C positive who was admitted to the ICU for acute hypoxic respiratory failure secondary to MSSA pneumonia, influenza A and right lung pneumothorax. Patient was intubated on 03/04. Chest-X-ray showed right lung pneumothorax so a chest tube was placed. The collected pleural fluid, sputum culture, and blood culture all grew MSSA. Patient did not have significant respiratory improvement and had worsening tachycardia and leukocytosis. Patient had repeated bronchoscopy with BAL, which was sent for analysis. 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 A second chest tube was placed inferior to the initial chest tube. Patient will need to be transferred to higher level of care for evaluation for lobectomy of the necrotized right lung. Throughout patient's hospital stay, he was treated with IV antibiotics (ceftriaxone escalated to zosyn). His CD4 count was 59 and he was started on raltegravir, emtricitabine and tenofovir. He is on TMP-SMX for PCP prophylaxis. He completed 5 day course of Tamiflu for Influenza A. The HIV viral load and hepatitis C viral load is pending. I have reviewed and discussed the patient's care with my attending, Dr. Narayanan, Cara Thorne MD PGY-3
--- NOTE | 2025-03-08 19:09 | ESOP_ITS ---
Procedures Procedure Date / Time 03/08/251908 Procedure Narrative Procedure Narrative: Attending Attestation: Patient with significant right-sided hydropneumothorax despite chest tube placement which appears to have migrated to the posterior aspect of the apex. Will place surgical chest tube. I did palpate the lung from inside of the thorax along remains being trapped against the chest wall due to significant inflammatory state associated with staph infection involving the pleural cavity. Patient remains on appropriate antibiotics. Patient tolerated procedure well with minimal blood loss. Chest tube on follow-up x-ray appears to be in the posterior costophrenic angle above the diaphragm. Draining well now with good evacuation of air leak. However lungs apical compartment still does not be fully expanded despite presence of both chest tubes. Patient remains tachycardic likely in setting of necrotic lung. Will likely need to transfer to surgical center for definitive therapy. Percutaneous Chest Tube Indication(s): symptomatic Pleural Effusion and Pneumothorax Informed consent obtained: procedure done urgently Time out done and verified the following: correct patient, side and site, procedure, patient position and implants and/or equipment Site cleansed with: Chlorhexidine Site: right, mid and axillary Anesthetic used: 1% Lidocaine Chest tube connected to evacuation container: yes CXR ordered post procedure: yes Complications/Comments: The patient was prepped and draped in a sterile manner using chlorhexidine scrub after the patient was positioned in the usual fashion. A total of 10 ml of 1% lidocaine was used to anesthesize the skin, subcutaneous tissue, superior aspect of the rib periosteum and parietal pleura. A 2 cm incision was then made parallel to the rib in the midaxillary line at the level of the 6th rib level. The subcutaneous tissue superficial and superior to the rib was dissected bluntly to the level of the pleura. The pleura was then entered bluntly. Air and purulent material was noted from the pleural space. The disruption in the parietal pleura was expanded bluntly and a finger was inserted and swept carefully in all directions. A 28 Kinyarwanda chest tube was then inserted using my finger as a guide. The chest tube was directed anteriorly and inserted easily. The chest tube was sutured to the skin at the insertion site, and connected securely with tape to a pleurovac. A sterile occlusive dressing was placed over the insertion site. No immediate complications were noted. A post-procedure chest x-ray is pending at the time of this note. Procedure done along with Dr. Emerson, PGY-3 and attending, Dr. Oracio Thorne MD PGY-3
--- NOTE | 2025-03-08 19:14 | ESDS_ITS ---
Planned Discharge Date 03/08/25 DS: Providers Provider Date of admission: 03/02/25 14:54 Primary care physician: Skyler Mejia PA-C Admitting Provider: Sumanth Terry MD Attending Provider on Admission: Kumar Narayanan MD Consults: 03/02/25 15:07 Consult to Infectious Diseases Routine Comment: Consulting Provider: Ashwin Pierce 03/05/25 13:29 Referral Registered Dietitian Routine Comment: tube feeds 03/08/25 17:31 Referral - Concrete Building Assembler Urgent Service Needed for Transfer: Cardiovascular/Thoracic Surg Addl Comments:: thoracic surgery Attending Provider on DC: Cara Thorne MD Discharging Provider: Cara Thorne MD DS: Diagnosis Problem List Completed Was Problem List Reviewed/Reconciled?: Yes Hospital Course Hospital Course Hospital course: Patient is a 59 year old male with AIDS and hepatitis C positive who was admitted to the ICU for acute hypoxic respiratory failure secondary to MSSA pneumonia and bacteremia, influenza A. Patient was intubated on 03/04. Chest-X-ray showed right lung pneumothorax so a chest tube was placed. The collected pleural fluid, sputum culture, and blood culture all grew MSSA. Patient did not have significant respiratory improvement and had worsening tachycardia and leukocytosis. Patient had repeated bronchoscopy with BAL, which was sent for analysis. 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 A second chest tube was placed inferior to the initial chest tube. Patient will need to be transferred to higher level of care for evaluation for lobectomy of the necrotized right lung. Throughout patient's hospital stay, he was treated with IV antibiotics (ceftriaxone escalated to zosyn). His CD4 count was 59 and he was started on raltegravir, emtricitabine and tenofovir. He is on TMP-SMX for PCP prophylaxis. He completed 5 day course of Tamiflu for Influenza A. The HIV viral load and hepatitis C viral load is pending. I have reviewed and discussed the patient's care with my attending, Dr. Narayanan, Cara Thorne MD PGY-3 #Acute hypoxic respiratory failure #R hydropneumthorax #MSSA necrotizing pneumonia #MSSA bacteremia #Influenza positive #AIDS Time Spent with Patient Time attestation: Total time spent providing and/or coordinating discharge services: 35 min Time spent: Greater than 30 minutes Exam Vital Signs Temp Pulse Resp BP Pulse Ox O2 Del Method O2 Flow Rate 99.5 F 141 H 22 H 102/72 93 L Mechanical Ventilation 50 03/08/25 16:00 03/08/25 19:00 03/08/25 13:16 03/08/25 19:00 03/08/25 19:00 03/07/25 04:00 03/06/25 04:00 FiO2 80 03/08/25 18:30 Narrative Exam Constitutional: Intubated, sedated. HEENT: NCAT. Diaphoretic. Respiratory: Decreased breath sounds. Pleural rub right lateral lung, improved. 2 chest tubes in the right mid-axillary chest Cardiac: Tachycardic. Elevated JVD. Abdomen: Soft, mildly distended, non-tender. No guarding, no rebound. MSK: No B/L LE edema. Skin: Warm, dry, intact. No obvious lesions. Discharge Plan Plan Disposition Comment: Hospitalist admit ICU to consult Prescriptions/Referrals Referrals: Skyler Mejia PA-C [Primary Care Provider] - Patient/Caregiver Discharge Instructions Print Language: Tamazight Quality Discharge Quality Measures VTE prophylaxis MD Attestestation MD Attestation I have reviewed and agree with the above documentation. Patient with necrotizing pneumonia secondary to MSSA. Patient with course complicated by empyema and bacteremia. He has significant bronchopleural fistula which will warrant surgical intervention at this point. Patient's family has been updated about high risk of mortality despite aggressive intervention including transfer for surgical definitive therapy. They are aware and agreement with plan for transfer at this point. He remains hemodynamically stable on lung protective mechanical ventilation and is receiving appropriate nutrition prophylaxis. See my note from the same date for full plan of care for billing purposes.
[2025-03-08] MEDS: RINGERS LACTATED 1000 ML 1,000 ML 250 ML IV (19:42)
[2025-03-08 19:48] LABS: Base Excess 5 (-3-3); HCO3 37 mEq/L (20-26); Inspired Oxygen, FIO2 100 %; O2 Saturation 96 % (91-98); PCO2 98 mmHg (32.0-48.0); PO2 84 mmHg (83-108)
[2025-03-08 19:50] LABS: Allen Test Performed/OK; Puncture Site Right Radial; pH, Arterial 7.19 (7.35-7.45)
--- NOTE | 2025-03-08 21:12 | XR_ITS ---
Examination: AP chest single view Technique one AP portable semiupright chest single view Examination time: March 08, 2025 at 2152 hours Comparison March 08, 2025 1908 hours INDICATIONS: History pneumothorax postright thoracentesis, post chest tube placement FINDINGS: 2 right chest tubes Small right apical pneumothorax less than 10% Right internal jugular central line tip SVC satisfactory position Endotracheal tube 5.4 cm above anirudh The orogastric tube is in the stomach the tip is below the level of the film Extensive bilateral pneumonia at the lung bases IMPRESSION: Right chest tube satisfactory position with small right apical pneumothorax of Interval right internal jugular central line, tip in satisfactory position Endotracheal tube 5.4 cm above anirudh Bibasilar pneumonia
--- NOTE | 2025-03-08 21:13 | PD.RESPROC ---
Procedures Procedure Date / Time 03/08/252112 Procedure Narrative Procedure Narrative: Attending attestation: I was not present for the procedure. However, above resident did notify me of placement. Follow-up chest x-ray shows adequate placement. Pre-existing pneumothorax appears to have improved. Central Line Placement Right IJ: Indication(s): poor, or inadequate peripheral venous access Informed consent obtained: implied and procedure done urgently Time out done, and the following verified: correct patient, side and site, procedure and patient position Patient placed on monitor/pulse ox: Yes Hand Hygiene: scrub, soap & water and alcohol-based hand rub Max Sterile Barrier Techniques used: cap, mask, sterile gown, sterile gloves and sterile full body drape Central line prep: Chlorhexidine scrub Local anesthesia used: lidocaine 1% Amount of anesthesia used (mL): 5 Ultrasound used for placement: Yes Sterile Technique if Ultrasound used, including sterile gel: yes Central line lumen inserted: triple Post procedure: sutured in place, good blood return, all ports aspirated, flushed, capped and sterile dressing applied Patient tolerated procedure: well EBL(ml): 10 Complications: none
--- NOTE | 2025-03-08 21:17 | PC.NURSE ---
Received accepting information for patient to got to [facility] accepting Dr Pedrito Herman and DR Santana Cardio to room 3203 Nurse Carleen report #[phone]. Please give transfer center updates for filler picker time and ETA
--- NOTE | 2025-03-08 22:17 | PC.NURSE ---
contacted P[facility] for consent on transfer. consent signed. [facility] contacted, and accepted. ETA [id number].
--- NOTE | 2025-03-08 22:50 | PC.NURSE ---
Report given to KRISTIN Durant from [employer]. Pt currently on Prop, Fent, and Versed. KRISTIN Durant notified that Right IJ triple lumen inserted but Xray still needs to be read for verification.
[2025-03-08] MEDS: Norepinephrine/D5W 8mg/250ml 8 MG/250 ML BAG 6.591 MG IV (23:08)
--- NOTE | 2025-03-08 23:46 | PC.NURSE ---
[facility] center called to notify of ETA to [facility]
--- NOTE | 2025-03-09 00:32 | PC.NURSE ---
Pt transferred by [facility] at 0015, KRISTIN Durant from [facility] updated that right IJ triple lumen catheter was verified by Xray, and Levophed was started prior to transfer. KRISTIN Durant also notified that pt sedation changed from Prop, Versed, and Fentanyl to Ketamine drip by [facility].
[2025-03-09 17:49] LABS: HCV RNA, PCR <15 NOT DETECTED IU/mL
[2025-03-10 06:58] LABS: HCV RNA, PCR Log IU <1.18 NOT DETECTED Log IU/mL
[2025-03-10 17:52] LABS: HIV-1 RNA, QN PCR NOT DETECTED copies/mL
[2025-03-11 06:34] LABS: HIV Genotype* NOT DETECTED; HIV-1 RNA, QN PCR Log NOT DETECTED
[2025-03-14 07:06] LABS: HCV Genotype, LiPA(R)* NOT DETECTED
== END 2025-03-09 00:15 | disposition other institution (70) | DRG 890 ==
LOC: SERX 14:11 → S2SX 03-03 07:36 → SERHOLD 03-14 09:56 → S2SX 03-14 09:56
PROVIDERS: Internal Medicine Infectious Disease; Student in an Organized Health Care Education/Training Program; Admitting Provider Internal Medicine; Emergency Provider Emergency Medicine; PCP Physician Assistant; Visit Provider Internal Medicine Critical Care Medicine
DX: A41.89 Other specified sepsis (principal); J96.01 Acute respiratory failure with hypoxia; E86.1 Hypovolemia; B20 Human immunodeficiency virus [HIV] disease; B19.20 Unspecified viral hepatitis C without hepatic coma; E87.5 Hyperkalemia; E87.29 Other acidosis; J95.811 Postprocedural pneumothorax; J98.4 Other disorders of lung; J15.211 Pneumonia due to Methicillin susceptible Staphylococcus aureus; G93.41 Metabolic encephalopathy; J86.0 Pyothorax with fistula; E87.1 Hypo-osmolality and hyponatremia; B59 Pneumocystosis; J98.11 Atelectasis; J10.08 Influenza due to other identified influenza virus with other specified pneumonia; I10 Essential (primary) hypertension; Z87.891 Personal history of nicotine dependence; E87.20 Acidosis, unspecified; Z91.148 Patient's other noncompliance with medication regimen for other reason; J90 Pleural effusion, not elsewhere classified
CPT/HCPCS: 36415; 36600; 70470; 71045; 71275; 80053; 80061; 80069; 80074; 80307; 80320; 81001; 82140; 82150; 82550; 82803; 82945; 83036; 83605; 83615; 83735; 83880; 84100; 84132; 84145; 84157; 84484; 85025; 85610; 86331; 86355; 86357; 86359; 86360; 86403; 86480; 86635; 86701; 86702; 86703; 86777; 86778; 86780; 86850; 86900; 86901; 87015; 87040; 87070; 87075; 87077; 87081; 87102; 87116; 87186; 87205; 87206; 87252; 87400; 87449; 87502; 87522; 87536; 87634; 87811; 87901; 87902; 89051; 93005; 93225; 93306; 94002; 94003; 94640; 94644; 94664; 96361; 96365; 96366; 96367; 96375; 99291; A4649; A9270; J0330; J0456; J0613; J0696; J1644; J1815; J1938; J2250; J2251; J2470; J2543; J2704; J2919; J3010; J3370; J3475; J3490; J7030; J7040; J7050; J7120; J7512; Q9967; G0480; J1920

== ENCOUNTER 2025-07-18 19:59 | Emergency (ER) | payer MEDICAID, SELFPAY ==
[2025-07-18 20:02] VITALS: BP 155/111; PULSE 113; RESP 19; TEMP 36.6; O2SAT 95
[2025-07-18 20:03] VITALS: BMI 21.1
--- NOTE | 2025-07-18 20:12 | PD.EDADULT ---
ED General RME/HPI General Chief complaint: Medical Clearance Stated complaint: HALF-WAY CLEARANCE Time Seen by Provider: 07/18/25 20:11 Arrival date/time: 07/18/25 19:59 CC: Medical clearance HPI patient is intoxicated comes in for medical clearance for [facility]. Patient is awake alert slurred speech observed ambulating. Vital signs show mild tachycardia. With hypertension. Related Data Allergies Allergy/AdvReac Type Severity Reaction Status Date / Time No Known Allergies Allergy Verified 03/02/25 11:21 Review of Systems Review of Systems Narrative Review of Systems: GEN: No fever, no chills, no weight loss EYES: No discharge, no visual changes, no pain HEENT: No ear pain, no congestion, no sore throat PULM: No shortness of breath, no cough, no congestion CV: No chest pain, no dyspnea on exertion, no palpitations GI: No nausea, no vomiting, no diarrhea, no pain, no constipation : No frequency, no urgency, no dysuria MUSC/SKEL: No joint pain, no back pain SKIN: No rash PSYCH: No hallucinations, no depression HEME/LYMPH: No easy bleeding or bruising tendencies NEURO: No weakness, no headache Past Medical History Past Medical History CARDIAC: Negative Cardiac Disorders or Congestive Heart Failure RESPIRATORY: Positive Asthma (Difficulty breathing this admission. Pt intubated at this time.); Negative Chronic Obstructive Pulmonary Disease (COPD) GENITOURINARY: Negative Renal Disease MUSCULOSKELETAL: Positive Musculoskeletal Disorders ENDOCRINE: Negative Diabetes Mellitus Type 1 or Diabetes Mellitus Type 2 HEMATOLOGIC: Positive Blood Disorders; Negative Sickle Cell Disease Social History SMOKING STATUS: Former smoker ED Exam Narrative Physical exam: [General: Appears not in any acute distress Head normocephalic HEENT: Within acceptable limits Neck is supple nontender Chest equal chest rise nontender to palpation Respiratory: Clear to auscultation no wheezes crackles or rubs CV: Rate rhythm is regular no murmurs rubs or clicks Abdomen is soft nontender no masses positive bowel sounds all 4 quadrants Back: No CVA tenderness no spinous process tenderness from cervical spine thoracic and lumbar spine Skin: Intact no petechiae rash induration ulceration or crepitus Extremities: Moving all extremity against resistance cap refill less than 2 seconds neurosensory intact Neuro: Slurred speech but awake alert oriented x3 Glascow coma 15 no focal deficits] Course Quality Measures none Vital Signs Vital signs: Vital Signs Temperature 97.9 F 07/18/25 20:02 Pulse Rate 113 H 07/18/25 20:02 Respiratory Rate 19 07/18/25 20:02 Blood Pressure 155/111 H 07/18/25 20:02 Pulse Oximetry (%) 95 07/18/25 20:02 Oxygen Delivery Method Room Air 07/18/25 20:02 Discharge Plan Plan Patient Disposition: Custodial/Court/Law Problem List Clinical Impression: Medical clearance for incarceration Patient/Caregiver Discharge Instructions Print Language: Mongolian Stand Alone Forms: Silvana Leach Info. PA/INTERMEDIATE PROJECT MANAGER Supervising Physician LEONORA/INTERMEDIATE PROJECT MANAGER Supervising Physician: Fernie Torres ENP MDM Clinical Information Provided by patient and law enforcement Medical Records [facility] Meds/Rx Considered, not Ordered None Labs/Rad/Tests considered, not Ordered None Chronic Illness/Social Conditions Add or document further as needed: HIV EKG EKG not done Lab Interpretation Labs: none Imaging Imaging interpretation: none Medication Administration(s) none Diagnosis Differential diagnosis: Alcohol intoxication Dispositon Disposition: Incarceration/CPS
== END 2025-07-18 20:20 ==
LOC: SERX 20:23
PROVIDERS: Emergency Provider Emergency Medicine
DX: Z02.89 Encounter for other administrative examinations (principal); R47.81 Slurred speech
CPT/HCPCS: 99281